=== PATIENT | male | born 1945 ===

== ENCOUNTER → 2018-08-12 | Outpatient (CLI) | payer OTHER ==
--- NOTE | 2018-08-12 13:14 | XR ---
EXAMINATION TYPE: XR knee complete bilateral DATE OF EXAM: 08/12/2018 CLINICAL HISTORY: Chronic bilateral knee pain TECHNIQUE: Three views of the bilateral knees were obtained. COMPARISON: None. FINDINGS: There is no acute fracture/dislocation evident in either knee. The tri-compartment joint spaces appear within normal limits other than very minimal medial compartment osteophytes bilaterally . The overlying soft tissue appears unremarkable. IMPRESSION: There is no acute fracture or dislocation in either knee. Mild medial compartment arthro flower bilaterally.
== END | disposition home or self-care (01) ==
LOC: RADXRMAIN 12:35
PROVIDERS: ATTEND Internal Medicine
DX: M17.0 Bilateral primary osteoarthritis of knee (principal)

== ENCOUNTER 2019-04-18 07:04 | Day surgery (SDC) | payer MEDICARE, OTHER ==
[2019-03-25 11:35] VITALS: BMI 33.2
[~2019-04-18 07:04] MED LIST: LACTATED RINGERS 1,000 ML IV SCH; LIDOCAINE 1% 20 ML VIAL (10MG/ML) FOR IV START INTRADERMA PRN
[2019-04-18 07:28] VITALS: RESP 16; TEMP 97.2
[2019-04-18] MEDS ORDERED: LIDOCAINE 1% INJ 10MG/ML (20 ML MDV) ONE (09:21)
[2019-04-18] MEDS ORDERED: PROPOFOL 10 MG/ML 20 ML VIAL IV ONE (09:21)
--- NOTE | 2019-04-18 09:54 | P.PCN ---
Date of Procedure: 04/18/19 Description of Procedure: Brief history: Patient is a pleasant scheduled for an elective upper endoscopy as well as colonoscopy as a part of evaluation of GERD and a change in bowel habits. Procedure performed: Esophagogastroduodenoscopy with biopsy Colonoscopy Estimated blood loss: Minimal. Preoperative diagnosis: Anesthesia: MAC Procedure: After informed consent was obtained from the patient was brought into the endoscopy unit and IV sedation was administered by anesthesia under continuous monitoring. Initially upper endoscopy was done. The Olympus GF 190 video endoscope was inserted into the mouth and esophagus intubated without any difficulty and was gradually advanced into the stomach and duodenum and carefully examined. The bulb and second part of the duodenum appeared normal, except for some mild scattered erythema suggestive of mild duodenitis with biopsies taken. The scope was then withdrawn into the stomach adequately insufflated with air and upon careful examination the antrum and body, cardia and fundus appeared normal, with biopsies of the antrum and body taken. The scope was then withdrawn into the esophagus. The GE junction was located at 35 cm to the incisors, with a 3 cm hiatal hernia noted. It appeared somewhat irregular concerning for short segment Cardoza's with biopsies taken. Rest of the esophagus appeared normal, except for mild grade a esophagitis. Patient tolerated the procedure well. At this time the patient continued to remain sedation. Initial digital rectal examination was normal. Olympus CF 190 video colonoscope was then inserted into the rectum and gradually advanced to the descending colon at which time the procedure was aborted due to a large amount of solid equal matter throughout the colon precluding visualization of the mucosa and increasing the risk for perforation due to impaired visualization. At this time the scope was withdrawn back into the rectum. Retroflexion was performed in the rectum and no lesions were noted. Patient tolerated the procedure well. Impression: 1. Mild duodenitis biopsied. GE junction and antrum and body biopsied. Moderate hiatal hernia. LA grade a esophagitis. 2. Failed/aborted colonoscopy due to poor prep with a large amount of solid stool throughout the visualized colon. Recommendations: Findings of this examination were discussed with the patient as well as his . Okay to resume diet. Resume medications. Continue current medical management. Follow-up in the gastroenterology clinic as previously scheduled. Await pathology from biopsies. Patient will need repeat colonoscopy in 3-6 months with 2 day prep.
[2019-04-18 10:24] VITALS: BP 115/79; PULSE 66
== END 2019-04-18 11:22 | disposition home or self-care (01) ==
LOC: ORWHC2ENDO 07:04
PROVIDERS: ATTEND Internal Medicine
DX: K44.9 Diaphragmatic hernia without obstruction or gangrene (principal); K21.0 Gastro-esophageal reflux disease with esophagitis; K29.50 Unspecified chronic gastritis without bleeding; K22.8 Other specified diseases of esophagus; R19.4 Change in bowel habit; Z98.49 Cataract extraction status, unspecified eye; Z87.11 Personal history of peptic ulcer disease; Z87.891 Personal history of nicotine dependence
CPT/HCPCS: 88305; 43239; 45330; J2001; J2704

== ENCOUNTER 2019-05-30 13:54 | Emergency (ER) | payer MEDICARE, OTHER ==
[2019-05-30 14:46] VITALS: BP 133/85; PULSE 89; RESP 18; TEMP 97.5
--- NOTE | 2019-05-30 15:37 | ED ---
General Adult HPI - General Chief complaint: Eye Problems Stated complaint: Eye Pain Time Seen by Provider: 05/30/19 15:06 Source: patient, RN notes reviewed Mode of arrival: ambulatory Limitations: language barrier - History of Present Illness Initial comments: 73-year-old male presents to the emergency department for a chief complaint of bilateral eye pain. Patient states he has bilateral eye irritation for at least 5 years. States he had cataract surgery about 2-3 months ago. States this did not seem to help with his eyes. States that he has a history of high pressure in his eyes. He usually sees Dr. Gallagher for this. States his is here for similar complaints. States that they thought they could see an health care marketing specialist through the emergency department.Patient has no other complaints at this time including shortness of breath, chest pain, abdominal pain, nausea or vomiting, headache, or visual changes. - Related Data Home Medications Medication Instructions Recorded Confirmed Miralax(Dose Unknown) 1 applicate PO DAILY 03/25/19 04/15/19 Vitamin D(Dose Unknown) 1 tab PO DAILY 03/25/19 04/15/19 Zinc(Dose Unknown) 1 tab PO DAILY 03/25/19 04/15/19 Allergies Allergy/AdvReac Type Severity Reaction Status Date / Time No Known Allergies Allergy Verified 04/18/19 07:27 Review of Systems ROS Statement: Those systems with pertinent positive or pertinent negative responses have been documented in the HPI. ROS Other: All systems not noted in ROS Statement are negative. 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"-told on previous EKG his diaghragm "was not healthy", constipation, "when I eat greasy,fatty or fried food it hard to digest it", feels heavy feeling after eating, History of Any Multi-Drug Resistant Organisms: None Reported Past Surgical History: Hernia Repair, Prostate Surgery Additional Past Surgical History / Comment(s): rectal fistula surgery, keegan cataract surgery Past Anesthesia/Blood Transfusion Reactions: No Reported Reaction Past Psychological History: No Psychological Hx Reported Smoking Status: Former smoker Past Alcohol Use History: None Reported Past Drug Use History: None Reported - Past Family History Mother Family Medical History: Cancer General Exam Limitations: language barrier General appearance: alert, in no apparent distress Head exam: Present: atraumatic, normocephalic, normal inspection Eye exam: Present: normal appearance, PERRL, EOMI. Absent: scleral icterus, conjunctival injection, periorbital swelling Expanded Eyelids: Normal Inspection: Bilateral Pupils: Regular, Round: Bilateral Sclera/Conjunctival: Normal Inspection: Bilateral IOP (R) in mmH IOP (L) in mmH IOP measured with: Tonopen ENT exam: Present: normal exam, mucous membranes moist Neck exam: Present: normal inspection, full ROM. Absent: tenderness, meningismus, lymphadenopathy Respiratory exam: Present: normal lung sounds bilaterally. Absent: respiratory distress, wheezes, rales, rhonchi, stridor Cardiovascular Exam: Present: regular rate, normal rhythm, normal heart sounds. Absent: systolic murmur, diastolic murmur, rubs, gallop, clicks Course Vital Signs 05/30/19 14:43 Temperature 97.5 F L Pulse Rate 89 Respiratory 18 Rate Blood Pressure 133/85 O2 Sat by Pulse 96 Oximetry Medical Decision Making - Medical Decision Making patient presents for chronic eye complains for at least 5 years. Had a recent cataract surgery a few months ago that did not seem to help with his watering and itching eyes. States she also has pain surrounding his eyes. Denies pain with movement of the eyes. Denies any worsening symptoms in recent time. Patient thought he could see an health care marketing specialist here to the emergency department. we did check intraocular pressures which were normal bilaterally. I did attempt to do a visual acuity but was unable to do so given patient's language barrier. I was however able to converse with patient's. I discussed the need to see Dr. Gallagher in the office. I discussed to call today and if there are any acute changes to return here to the emergency department. Disposition Clinical Impression: Eye irritation Disposition: HOME SELF-CARE Condition: Good Instructions (If sedation given, give patient instructions): Eye Pain (ED) Additional Instructions: please follow-up with Dr. Gallagher by calling for an appointment. Please return to the emergency department if you have any worsening symptoms or visual changes. Is patient prescribed a controlled substance at d/c from ED?: No Referrals: Wilma Escobedo MD [Primary Care Provider] - 1-2 days Adri Gallagher MD [STAFF PHYSICIAN] - 1-2 days Time of Disposition: 15:37
== END 2019-05-30 15:59 | disposition home or self-care (01) ==
LOC: EC 13:54
DX: H57.89 Other specified disorders of eye and adnexa (principal); H57.13 Ocular pain, bilateral; Z98.890 Other specified postprocedural states; Z87.891 Personal history of nicotine dependence
CPT/HCPCS: 99283

== ENCOUNTER 2019-07-11 10:03 | Emergency (ER) | payer MEDICARE, OTHER ==
[2019-07-11 10:19] VITALS: RESP 18
[2019-07-11] MEDS ORDERED: KETOROLAC 60 MG/2 ML VIAL IM STA (10:39)
[2019-07-11] MEDS ORDERED: DIAZEPAM 5 MG/ML 2 ML INJ IM ONE (10:39)
--- NOTE | 2019-07-11 10:45 | ED ---
General Adult HPI - General Chief complaint: Back Pain/Injury Stated complaint: back pain Time Seen by Provider: 07/11/19 10:10 Source: patient, conference interpreter, RN notes reviewed, old records reviewed Mode of arrival: wheelchair Limitations: no limitations - History of Present Illness Initial comments: This is a 73-year-old male who presents emergency department with past medical history significant for previous asked surgery last time he had it was 3 or 4 years ago in [place]. Patient's son was on the phone also give any history because his Moldovan was better. Father states that about 3 days ago he was lifting a couch and hurt his mid thoracic spine area and since that time he's had pain in that area. Patient states it's worse today than it has been patient denies any numbness weakness. Patient denies any pain radiating to legs or arms. Patient denies any direct hit or injury to the area. Patient denies any difficulty breathing or shortness of breath per patient denies any fevers. Patient states bending or twisting definitely makes the pain worse. - Related Data Home Medications Medication Instructions Recorded Confirmed Lubiprostone [Amitiza] 24 mcg PO BID 07/11/19 07/11/19 Polyethylene Glycol 3350 [Miralax] 17 gm PO DAILY 07/11/19 07/11/19 Previous Rx's Medication Instructions Recorded Cyclobenzaprine [Flexeril] 10 mg PO TID #20 tab 07/11/19 Ibuprofen [Motrin] 600 mg PO Q6HR PRN #20 tab 07/11/19 Allergies Allergy/AdvReac Type Severity Reaction Status Date / Time No Known Allergies Allergy Verified 07/11/19 11:23 Review of Systems ROS Statement: Those systems with pertinent positive or pertinent negative responses have been documented in the HPI. ROS Other: All systems not noted in ROS Statement are negative. 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"-told on previous EKG his diaghragm "was not healthy", constipation, "when I eat greasy,fatty or fried food it hard to digest it", feels heavy feeling after eating, History of Any Multi-Drug Resistant Organisms: None Reported Past Surgical History: Hernia Repair, Prostate Surgery Additional Past Surgical History / Comment(s): rectal fistula surgery, keegan cataract surgery Past Anesthesia/Blood Transfusion Reactions: No Reported Reaction Past Psychological History: No Psychological Hx Reported Smoking Status: Former smoker Past Alcohol Use History: None Reported Past Drug Use History: None Reported - Past Family History Mother Family Medical History: Cancer General Exam - General Exam Comments Initial Comments: GENERAL: Patient is well-developed and well-nourished. Patient is nontoxic and well- hydrated and is in mild distress. ENT: Neck is soft and supple. No significant lymphadenopathy is noted. Oropharynx is clear. Moist mucous membranes. Neck has full range of motion without eliciting any pain. EYES: The sclera were anicteric and conjunctiva were pink and moist. Extraocular movements were intact and pupils were equal round and reactive to light. Eyelids were unremarkable. PULMONARY: Unlabored respirations. Good breath sounds bilaterally. No audible rales rhonchi or wheezing was noted. CARDIOVASCULAR: There is a regular rate and rhythm without any murmurs gallops or rubs. ABDOMEN: Soft and nontender with normal bowel sounds. SKIN: Skin is clear with no lesions or rashes and otherwise unremarkable. NEUROLOGIC: Patient is alert and oriented x3. Cranial nerves II through XII are grossly intact. Motor and sensory are also intact. Normal speech, volume and content. Symmetrical smile. MUSCULOSKELETAL: Normal extremities with adequate strength and full range of motion. Patient has tenderness to the thoracic spine on the paraspinous muscle area both on the right the left is at about the level of T9 LYMPHATICS: No significant lymphadenopathy is noted PSYCHIATRIC: Normal psychiatric evaluation. Limitations: no limitations Course Vital Signs 07/11/19 10:16 Temperature 97.8 F Pulse Rate 73 Respiratory 18 Rate Blood Pressure 131/83 O2 Sat by Pulse 96 Oximetry Medical Decision Making - Medical Decision Making Thoracic back x-ray shows a T12 compression fracture. CT of the same area shows compression fracture with no retropulsion of any bony fragments. Disposition Clinical Impression: Compression fracture of T11 vertebra Disposition: HOME SELF-CARE Condition: Good Instructions (If sedation given, give patient instructions): Vertebral Compression Fracture (ED) Prescriptions: Cyclobenzaprine [Flexeril] 10 mg PO TID #20 tab Ibuprofen [Motrin] 600 mg PO Q6HR PRN #20 tab PRN Reason: For pain Is patient prescribed a controlled substance at d/c from ED?: No Referrals: Wilma Escobedo MD [Primary Care Provider] - 1-2 days Time of Disposition: 12:17
--- NOTE | 2019-07-11 11:17 | XR ---
EXAMINATION TYPE: XR thoracic spine complete DATE OF EXAM: 07/11/2019 CLINICAL HISTORY: Back pain after lifting a heavy object 9 days ago TECHNIQUE: Frontal, lateral, and swimmer's view of thoracic spine are obtained. COMPARISON: None. FINDINGS: In addition to the kyphoplasty change at approximately L1 and L2 there is a compression def ormity at approximately T12 with vertebral body height loss of approximately 30%. Remainder of the th oracic vertebral body heights appear maintained. Alignment appears maintained. Mild degenerative garcia ge is seen with small anterior osteophytes and intervertebral disc space narrowing. IMPRESSION: 1. Age-indeterminate compression deformity at approximately T11 of 30%. No priors available for katya rison. Correlate for point tenderness. 2. Old compression deformities with vertebroplasty change at approximately L1 and L2.
--- NOTE | 2019-07-11 12:15 | CT ---
EXAMINATION TYPE: CT thoracic spine wo con DATE OF EXAM: 07/11/2019 COMPARISON: Plain film of 07/11/2019 HISTORY: Mid back pain without injury CT DLP: 995.5 mGycm Automated exposure control for dose reduction was used. CT of the thoracic spine was performed with b one and soft tissue window settings reviewed in the axial coronal and sagittal planes. FINDINGS: Visualized osseous structures demonstrate osteopenia. There is mild superior endplate compression fra cture involving the T11 vertebral segment estimated at 20%. There is surrounding hematoma indicating acute process. There is vague lucency involving the posterior aspect superior endplate of T12 without significant volume loss which may reflect additional fracture. There is no evidence for bony retropu lsion. No additional fractures identified. IMPRESSION: 1. Mild superior endplate compression fracture involving T11 as discussed above and possibly T12. No evidence of bony retropulsion or instability.
[2019-07-11 12:41] VITALS: BP 138/80; PULSE 78; TEMP 97
== END 2019-07-11 12:41 | disposition home or self-care (01) ==
LOC: EC 10:03
DX: S22.080A Wedge compression fracture of T11-T12 vertebra, initial encounter for closed fracture (principal); K59.00 Constipation, unspecified; Z87.891 Personal history of nicotine dependence; Z79.899 Other long term (current) drug therapy; X50.0XXA Overexertion from strenuous movement or load, initial encounter
CPT/HCPCS: 72072; 72128; 99284; 96372 ×2; J3360; J1885

== ENCOUNTER 2019-12-20 09:51 | Day surgery (SDC) | payer MEDICARE, OTHER ==
[2019-12-19 09:36] VITALS: BMI 25.1
[2019-12-20 10:18] VITALS: RESP 16; TEMP 98.1
[2019-12-20] MEDS ORDERED: LIDOCAINE 1% (10MG/ML) FOR IV START INTRADERMA ONE (10:20)
[2019-12-20] MEDS: LACTATED RINGERS 1,000 ML IV SCH ×2 (10:20→11:26)
[2019-12-20] MEDS ORDERED: PROPOFOL 10 MG/ML 20 ML VIAL IV ONE (11:28)
--- NOTE | 2019-12-20 12:06 | P.PCN ---
Date of Procedure: 12/20/19 Description of Procedure: BRIEF HISTORY: Patient is a 74-year-old male with chronic constipation presenting for outpatient colonoscopy for altered bowel function and change of bowel.. Last colonoscopy incomplete due to poor prep. PROCEDURE PERFORMED: Colonoscopy. PREOPERATIVE DIAGNOSIS: Change in bowel habits, altered bowel function. ESTIMATED BLOOD LOSS: Minimal. IV sedation per Anesthesia. PROCEDURE: After informed consent was obtained, the patient, was brought into the endoscopy unit. IV sedation was administered by Anesthesia under continuous monitoring. Digital rectal examination was normal. Initially the Olympus CF-190 flexible video colonoscope was then inserted in the rectum, gradually advanced into the cecum without any difficulty. Careful examination was performed as the scope was gradually being withdrawn. Ileocecal valve was visualized and appeared normal. Prep was poor with a large amount of semi-solid stool noted throughout the colon. Mucosa of the cecum, ascending colon, transverse colon, descending colon, sigmoid colon, and rectum which was visualized and appeared normal, however completely visualized cessation of the mucosa severely inhibited by poor prep. Retroflexion was performed in the rectum and no lesions were seen. The patient tolerated the procedure well. IMPRESSION: Poor prep with large amounts of semisolid stool throughout the colon. Mucosa of the colon which was visualized and appeared. RECOMMENDATIONS: Findings of this examination were discussed with the patient via an seismic interpreter. Continue bowel regimen with patient recently started on an alternative laxative. GI clinic as scheduled. Patient should have repeat colonoscopy in one year with 2 day prep.
[2019-12-20 12:26] VITALS: BP 125/74; PULSE 60
== END 2019-12-20 13:02 | disposition home or self-care (01) ==
LOC: ORWHC2ENDO 09:51
PROVIDERS: ATTEND Internal Medicine
DX: K59.09 Other constipation (principal); K21.9 Gastro-esophageal reflux disease without esophagitis; Z79.899 Other long term (current) drug therapy
CPT/HCPCS: 45378; J2704

== ENCOUNTER → 2020-01-23 | Outpatient (CLI) | payer MEDICARE, OTHER ==
--- NOTE | 2020-01-23 15:15 | MR ---
EXAMINATION TYPE: MR lumbar spine wo con DATE OF EXAM: 01/23/2020 3:01 PM COMPARISON: NONE HISTORY: Mid-Low back pain, radiculopathy, T11-12 wedge compression fx Multiplanar, MultiSpin echo imaging of the lumbar spine was performed. L1-L2: Severe compression fracture involving the L1 vertebral segment with methylmethacrylate noted. No evidence for bony retropulsion. Loss of height is estimated at greater than 80%. Moderate disc lizz iccation with posterocentral disc bulge. No evidence for central stenosis. L2-L3: L2 compression fracture with loss of height estimated at greater than 75%. Methylmethacrylate noted within the vertebral body. Moderate degenerative disc disease with left paracentral disc hernia tion. Moderate central stenosis identified. L3-L4: Compression fracture of L4 with methylmethacrylate injection. Loss of height estimated at grea ter than 70%. Mild disc desiccation with posterior disc bulge. L4-L5: L5 is of normal height without compression fracture. Moderate degenerative disc disease canal superintendent ior disc bulge. No herniation or central stenosis. Facet joint arthropathy with mild bilateral forami nal encroachment. L5-S1: Moderate degenerative disc disease posterior disc bulge. No herniation or central stenosis. Fa cet joint arthropathy with mild bilateral foraminal encroachment. Abdominal aortic aneurysm estimated at 4 cm AP dimension. No paraspinal masses are identified. Conus medullaris has a normal appearance. IMPRESSION: 1. Multilevel chronic compression fractures with methylmethacrylate injection. 2. Moderate central stenosis at L2-3.
== END | disposition home or self-care (01) ==
LOC: RADMRIMAIN 13:57
PROVIDERS: ATTEND Orthopaedic Surgery Orthopaedic Surgery of the Spine
DX: S32.020D Wedge compression fracture of second lumbar vertebra, subsequent encounter for fracture with routine healing (principal); S32.030D Wedge compression fracture of third lumbar vertebra, subsequent encounter for fracture with routine healing; S32.040D Wedge compression fracture of fourth lumbar vertebra, subsequent encounter for fracture with routine healing; M48.061 Spinal stenosis, lumbar region without neurogenic claudication; Z98.890 Other specified postprocedural states
CPT/HCPCS: 72148

== ENCOUNTER → 2020-02-01 | Outpatient (CLI) | payer MEDICARE, OTHER ==
[~2020-02-01] MED LIST changes: +DENOSUMAB 60 MG/ML 1 ML SYRINGE SQ NR; -LACTATED RINGERS 1,000 ML IV SCH; -LIDOCAINE 1% 20 ML VIAL (10MG/ML) FOR IV START INTRADERMA PRN
[2020-02-01 14:07] VITALS: BP 126/85; PULSE 69; RESP 16; TEMP 98.1
== END | disposition home or self-care (01) ==
LOC: PROCWHC3 13:14
PROVIDERS: ATTEND Internal Medicine
DX: M81.0 Age-related osteoporosis without current pathological fracture (principal)
CPT/HCPCS: 96372; J0897

== ENCOUNTER → 2020-04-14 | Outpatient (CLI) | payer MEDICARE, OTHER ==
--- NOTE | 2020-04-14 17:40 | MR ---
EXAMINATION TYPE: MR lumbar spine wo/w con DATE OF EXAM: 04/14/2020 COMPARISON: 01/23/2020 HISTORY: Low Back Pain CONTRAST: Standard multiplanar, multisequence MRI departmental protocol utilizing 7.5 mL intravenous Gadavist g adolinium contrast. The lumbar vertebra show multiple compression fractures up to 50% loss of height. This is seen at L5 L4 L2 L1 and T11. There is anterior wedging. There is vertebroplasty loss of signal at L1 and L2 and L4. There is posterior disc herniation at L2-3 encroaching on the spinal canal. There is a mild rela tive spinal stenosis at this level. There is no lumbar paraspinal mass. The sacroiliac joints appear intact. IMPRESSION: Numerous osteoporotic compression fractures not significantly different than old exam. Mild relative spinal stenosis at L2-3 due to posterior disc herniation unchanged. No acute bony abnormality.
== END | disposition home or self-care (01) ==
LOC: RADMRIMAIN 14:25
PROVIDERS: ATTEND Internal Medicine
DX: M48.061 Spinal stenosis, lumbar region without neurogenic claudication (principal); M51.26 Other intervertebral disc displacement, lumbar region; M80.88XA Other osteoporosis with current pathological fracture, vertebra(e), initial encounter for fracture
CPT/HCPCS: 72158

== ENCOUNTER → 2020-08-23 | Outpatient (CLI) | payer MEDICARE, OTHER ==
[2020-08-23 08:16] VITALS: BP 153/90; PULSE 84; RESP 16; TEMP 98.1
== END | disposition home or self-care (01) ==
LOC: PROCWHC3 08:06
PROVIDERS: ATTEND Internal Medicine
DX: M81.0 Age-related osteoporosis without current pathological fracture (principal)
CPT/HCPCS: 96372; J0897

== ENCOUNTER → 2021-02-28 | Outpatient (CLI) | payer MEDICARE, OTHER ==
[2021-02-28 08:33] VITALS: BP 143/89; PULSE 75; RESP 16; TEMP 98.6
== END ==
LOC: PROCWHC3 08:21
PROVIDERS: ATTEND Internal Medicine
DX: M81.0 Age-related osteoporosis without current pathological fracture (principal); Z87.891 Personal history of nicotine dependence
CPT/HCPCS: 96372; J0897

== ENCOUNTER → 2021-08-30 | Outpatient (CLI) | payer MEDICARE, OTHER ==
[2021-08-30 08:57] VITALS: BP 144/95; PULSE 114; RESP 16; TEMP 98.7
== END ==
LOC: PROCWHC3 08:43
PROVIDERS: ATTEND Internal Medicine
DX: M81.0 Age-related osteoporosis without current pathological fracture (principal); Z87.891 Personal history of nicotine dependence
CPT/HCPCS: 96372; J0897

== ENCOUNTER → 2022-03-10 | Outpatient (CLI) | payer MEDICARE, OTHER ==
[2022-03-10 14:54] VITALS: BP 142/87; PULSE 72; RESP 18; TEMP 98.2
--- NOTE | 2022-03-10 15:42 | P.PAINPG ---
PQRS Measure Charge Sheet Comment: HISTORY OF PRESENT ILLNESS: 76 yr old male as a referral from Dr. Miller presents today w severe and chronic secondary to for evaluation. He fell in 1994 which started his LBP. Pt states his pain level is currently at /10 in intensity, intermittent, 5/10 in intensity, localized in the BL lower lumbar spine, in character w radiation towards BLEs. Pain has unknown provocative factors. Pain is palliated w PT (15 sessions) integrated w massage in 2020, heat & ice at PT, laying supine, repositioning and rest. PMH: GERD PSH: Hernia Repair, Prostate Surgery, Rectal Fistula Repair, BL Cataract Resection SH: Former tobacco user, No ETOH abuse, No illicit drug use. FH: Mo- CA. All: NKDA Meds: See list REVIEW OF ORGAN SYSTEMS: CONSTITUTIONAL: No fevers or chills. No recent weight loss. NEUROLOGICAL: + numbness and tingling along the distal extremities. No seizure disorders or headaches. MUSCULOSKELETAL: + pain PSYCHIATRIC: Denies current depression or suicidal thoughts. Physical Examinations : Constitutional : Cooperative , not in acute distress . Neurologic : Cranial nerve II to XII intact. No focal neurological deficits. Psychiatric : alert & oriented x 3. Matching mood & appropriate affect. Judgment & insight intact. Musculoskeletal : Cervical Spine Motor strength in the deltoid and biceps: Normal right side. Normal Left side Motor strength biceps and the wrist extensors: Normal right side . Normal left side Motor strength in the triceps muscle: Normal right side. Normal left side Deep tendon reflexes: Normal at the biceps. Normal at Brachioradialis. Normal at triceps Vertebral body tenderness to deep palpation over Cervical facet loading test: positive bilaterally Spurling test: positive bilaterally Neck distraction test: positive bilaterally Avelino sign: positive bilaterally Lumbar spine Motor strength lower extremities ,thigh and legs 5/5 Right side , 5/5 Left side Deep tendon reflexes : Normal Knee Jerk. Normal Ankle Jerk Vertebral body tenderness over L3 Lumbar facet Loading Test: positive Right / positive Left Range of motion of the lumbar spine Flexion 30 degrees, extension 10 degrees Straight Leg Raise test: Left/ Right positive at degree Chris test: positive right / positive left. Severe tenderness over the Sacroiliac joint on the Right / Left sides Gaenslen test: positive bilaterally Seated flexion test: positive bilaterally. Sacral spine : Severe tenderness over the Sacroiliac joint: right side / left side Range of motion: Flexion of the lumbar spine <60 degrees Range of motion: Extension of the lumbar spine <20 degrees Gaenslen's Test positive Alberto's Test positive Chris test: positive right side / left side Thigh Thrust Test Sacral Thrust Test Imaging: MRI without contrast of the lumbar spine from 01/23/20 reviewed Assessment/ Plan : Lumbar DDD, Lumbar spondylosis Recommendation of BL TFESI L2-L3. May need a series, up to 3 within a 6 mo period, for optimal pain relief. Risks, benefits of procedure discussed and patient verbalized understanding. Denies aspirin or anti- coagulant use or medical history of diabetes. Protocol for discontinuation/ continuation of medications juan carlos procedure discussed. Welding Specialist via zoom available to discuss and pt acknowledged understanding. All questions answered. I have spent greater than 30 minutes on patient care today. Dr Montiel was available by phone for the evaluation of this patient. The time was used to review the medical records including relevant urine studies and Prescription history (MAPs), review of the available imaging, evaluation and examination of the patient, coordination of care with the medical staff and if applicable referring physicians, as well as creation of the medical record PQRS Narrative: Smoking Status Former smoker Home Medications: Ambulatory Orders Lubiprostone [Amitiza] 24 mcg PO BID 07/11/19 Docusate Sodium [Dok] 100 mg PO DAILY 12/20/19 Cyclobenzaprine [Flexeril] 1 tab PO DAILY 02/28/21 Linaclotide [Linzess] 1 tab PO DAILY 02/28/21 Pantoprazole [Protonix] 1 tab PO DAILY 02/28/21 Controlled Substance Measures - Controlled Substance Measures Is patient prescribed a controlled substance at discharge?: No
== END | disposition home or self-care (01) ==
LOC: PNWHC3 13:09
PROVIDERS: ATTEND Specialist
DX: K21.9 Gastro-esophageal reflux disease without esophagitis (principal); M51.26 Other intervertebral disc displacement, lumbar region; M54.16 Radiculopathy, lumbar region; Z87.891 Personal history of nicotine dependence
CPT/HCPCS: 99211

== ENCOUNTER → 2022-03-26 | Outpatient (CLI) | payer MEDICARE, OTHER ==
[2022-03-26 17:59] LABS: HCT 44.7 % (39.6-50.0); HGB 14.3 g/dL (13.0-17.0); MCH 28.3 pg (27.0-32.0); MCV 88.5 fL (80.0-97.0); Mean Platelet Volume 11.9 fL (9.5-12.2); NRBC Per 100 WBC 0 /100 WBCS (0.0-0.0); Platelet Count 180 X 10*3/uL (140-440); RBC 5.05 X 10*6/uL (4.40-5.60); RDW 14.2 % (11.5-14.5); WBC 5.85 X 10*3/uL (4.50-10.00)
[2022-03-26 19:26] LABS: African American GFR (CKD) 100.2 (60.0-200.0); Anion Gap 10.9 mmol/L (10.00-18.00); Carbon Dioxide 21.5 mmol/L (20.0-27.5); Non-African American GFR(CKD) 86.5 (60.0-200.0); Potassium 4.5 mmol/L (3.5-5.5)
== END | disposition home or self-care (01) ==
LOC: LABPAT 10:47
PROVIDERS: ATTEND Internal Medicine Interventional Cardiology
DX: Z01.812 Encounter for preprocedural laboratory examination (principal); R94.39 Abnormal result of other cardiovascular function study
CPT/HCPCS: 80051; 82565; 85027

== ENCOUNTER 2022-03-27 10:33 | Day surgery (SDC) | payer MEDICARE, OTHER ==
[2022-03-26 09:58] VITALS: BMI 25.8
[~2022-03-27 10:33] MED LIST changes: +ALPRAZolam 0.25 MG TAB PO PRN; +ALPRAZolam 0.5 MG TAB PO PRN; +ASPIRIN 325 MG TAB PO STA; +ATORVASTATIN 80 MG TAB PO STA; -DENOSUMAB 60 MG/ML 1 ML SYRINGE SQ NR; +HEPARIN SODIUM,PORCINE 10,000 UNIT in SODIUM CHLORIDE 0.9% 1,000 ML IRRIGATION PRN; +HEPARIN SODIUM,PORCINE 2,500 UNIT in SODIUM CHLORIDE 0.9% 250 ML IRRIGATION PRN; +NITROGLYCERIN SL TABS 0.4 MG TAB SUBLINGUAL PRN; +SODIUM CHLORIDE 0.9% 1,000 ML in EMPTY BAG 1 BAG IV SCH
[2022-03-27 11:05] LABS: Basophils # (A) 0.1 k/uL (0-0.2); Basophils % (A) 1 %; Eosinophils # (A) 0.3 k/uL (0-0.7); Eosinophils % (A) 4 %; HCT 47.2 % (39.0-53.0); HGB 15.5 gm/dL (13.0-17.5); Hypochromasia Slight; Lymphocytes # (A) 1.9 k/uL (1.0-4.8); Lymphocytes % (A) 31 %; MCH 29.2 pg (25.0-35.0); MCHC 32.8 g/dL (31.0-37.0); MCV 88.9 fL (80.0-100.0); Mean Platelet Volume 9.4; Monocytes # (A) 0.3 k/uL (0-1.0); Monocytes % (A) 6 %; Neutrophils # (A) 3.2 k/uL (1.3-7.7); Neutrophils % (A) 55 %; Platelet Count 163 k/uL (150-450); RBC 5.31 m/uL (4.30-5.90); WBC 5.9 k/uL (3.8-10.6)
[2022-03-27 11:18] LABS: African American GFR (CKD) >90 (>60 ml/min/1.73 sqM); Anion Gap 9 mmol/L; Blood Urea Nitrogen 14 mg/dL (9-20); Calcium 8.6 mg/dL (8.4-10.2); Carbon Dioxide 27 mmol/L (22-30); Chloride 103 mmol/L (98-107); Glucose 99 mg/dL (74-99); Non-African American GFR(CKD) 89 (>60 ml/min/1.73 sqM); Potassium 3.9 mmol/L (3.5-5.1); Sodium 139 mmol/L (137-145)
[2022-03-27] MEDS ORDERED: fentaNYL (PF) 50 MCG/ML 2 ML AMP IV ONE (12:25)
[2022-03-27] MEDS ORDERED: LIDOCAINE 1% INJ 10MG/ML (30 ML VIAL-PF) SQ ONE ×2 (12:26)
[2022-03-27] MEDS ORDERED: MIDAZOLAM 2 MG/2 ML VIAL IV ONE (12:29)
[2022-03-27] MEDS: HEPARIN SODIUM 1,000 UN/ML (10ML VL) IV ONE ×2 (12:57→13:14)
[2022-03-27] MEDS ORDERED: CLOPIDOGREL 75 MG TAB PO ONE (13:05)
[2022-03-27] MEDS ORDERED: IOPAMIDOL-370 125ML BTL INJ ONE (13:15)
[2022-03-27] MEDS ORDERED: NITROGLYCERIN SL TABS 0.4 MG TAB SUBLINGUAL PRN (13:51)
[2022-03-27] MEDS ORDERED: MAG HYDROX/AL HYDROX/SIMETH 30 ML CUP PO PRN (13:51)
[2022-03-27] MEDS ORDERED: ATROPINE SULFATE 0.1 MG/ML 10ML SYRINGE IV PRN (13:51)
[2022-03-27] MEDS ORDERED: ZOLPIDEM 5 MG TAB PO PRN (13:51)
[2022-03-27] MEDS ORDERED: RX INFO: IV CONTRAST WAS GIVEN 1 EACH MISC MISCELLANE PRN (13:51)
[2022-03-27] MEDS ORDERED: SODIUM CHLORIDE 0.9% 1,000 ML in EMPTY BAG 1 BAG IV SCH (14:00)
[2022-03-27] MEDS ORDERED: IOPAMIDOL-300 50ML BTL INJ ONE (14:02)
--- NOTE | 2022-03-27 18:54 | P.CARDCATH ---
Date of Procedure: 03/27/22 Description of Procedure: Cardiac Catheterization: The patient is a 76-year-old male with no prior documented history of significant CAD who has been complaining of chest discomfort. He underwent an MPI showed evidence of stress induced ischemia. Recommendations were made regarding cardiac catheterization, the risks and the complications were discussed with the patient who is in full understanding and agreement. Procedure Description: Patient was brought to radiographer cardiac catheterization in fasting semi-sedated state after receiving Fentanyl and Benadryl achieiving moderate conscious sedated state. Attempt to cannulate the right radial artery were unsuccessful because of spasm. Using Xylocaine Anesthesia and Seldinger technique, a 6-Angolan sheath was introduced in the left femoral artery . Subsequently, selective coronary angiography was performed using a 6-Angolan 4 bend Macy catheter. Multiple views of the coronary artery including hemiaxial views were obtained. The 6-Angolan pigtail catheter was used to cross the aortic valve and LVEDP was calculated. After removing the catheters 6-Angolan Macy 4 guiding catheter was introduced in the system and the right coronary ostium was cannulated. Subsequently a 0.014 BMW J-wire was advanced, positioned distally. A 3.0 x 12 mm NC Treck was advanced and inflation up to 8 stefania for done approximately. Subsequently a 3.5 x 38 mm Xience ramos point was deployed proximally at 16 stefania. After removing the balloon an IVUS [place] eye catheter was introduced and images were obtained. Following that a 5.0 x 15 mm NC Treck was advanced and multiple inflations proximally at maximum of 12 stefania were done. After removing the balloon a 5.0 x 18 mm Xience ramos point stent was advanced to the distal segment, deployed at 14 stefania. After withdrawing the balloon images were obtained and repeated that showed successful stenting. Following that, catheter and sheath were removed. Hemostasis was obtained with deployment of Angio-Seal. There was no immediate complication. Patient was returned to room in stable condition. Of note, the patient received a total of 6000 units of intravenous heparin as well as oral loading dose of clopidogrel. The patient had chest discomfort that resolved at the end of the procedure. His ACT was monitored. Findings: Fluoroscopy: Significant calcification was noted. Left main: This is a short sized vessel, bifurcating into LAD and left circumflex, left main has no high-grade stenosis LAD: This is a large-size vessel, reaching to the apex with a wraparound the apex segment, giving rise to 3 diagonal branch, the LAD has 20-30% plaque in the proximal segment and another plaque in the midsegment of 20% with no high-grade stenosis Left circumflex: This is a nondominant vessel moderate caliber giving rise to 2 obtuse marginal branch, the left circumflex has mild intimal disease with no high-grade stenosis RCA: This is a large dominant vessel, giving rise to PDA distally, heavily calcified. The proximal RCA and the mid RCA are diffusely diseased with areas of stenosis of 95 % in the proximal segment, there is another 80% plaque in the distal RCA. The vessel is large in caliber Left Ventriculogram: Not performed Hemodynamics: There was no gradient across the aortic valve, LVEDP was 16-20 mmHg Conclusion: 1. Calcified coronary arteries 2. Mild disease in the LAD and left circumflex 3. Critical stenosis in the proximal, mid and distal RCA 4. Successful stenting of the proximal RCA and mid with reduction of the stenosis from 95 in the long segment to less than 5% 5. Successful stenting of the distal RCA with reduction of the stenosis from 80% to 0%. 6. Intravascular ultrasound imaging Recommendations: The patient will continue on dual antiplatelet treatment with aspirin and Plavix for 6 months. Aggressive coronary risks modification will be continued. The findings and the recommendations were discussed with the patient and the family and they were in full understanding and agreement. Duration of sedation is 76 minutes.
[2022-03-27] MEDS ORDERED: ATORVASTATIN 80 MG TAB PO SCH (21:00)
[2022-03-27] MEDS ORDERED: DONEPEZIL 5 MG TAB PO SCH (21:00)
[2022-03-28 01:18] LABS: Chol/HDL Ratio 4.87 Ratio; LDL Cholesterol,Calculated 178.4 mg/dL (0.0-131.0)
[2022-03-28 03:57] VITALS: RESP 18
[2022-03-28] MEDS: METOPROLOL TARTRATE 25 MG TAB PO SCH ×2 (04:01→08:38)
[2022-03-28 06:51] LABS: African American GFR (CKD) >90 (>60 ml/min/1.73 sqM); Anion Gap 7 mmol/L; Blood Urea Nitrogen 15 mg/dL (9-20); Carbon Dioxide 24 mmol/L (22-30); Chloride 107 mmol/L (98-107); Glucose 88 mg/dL (74-99); Non-African American GFR(CKD) 85 (>60 ml/min/1.73 sqM); Potassium 4.1 mmol/L (3.5-5.1); Sodium 138 mmol/L (137-145)
[2022-03-28] MEDS ORDERED: PANTOPRAZOLE 40 MG TABLET PO SCH (07:30)
[2022-03-28 08:36] VITALS: BP 113/71; PULSE 64; TEMP 98.3
--- NOTE | 2022-03-28 08:36 | P.PN ---
Subjective Progress Note Date: 03/28/22 PROGRESS NOTE The patient is a 76-year-old male who has been complaining of chest discomfort and had an abnormal MPI, underwent cardiac catheterization that showed evidence of inducible ischemia. Underwent cardiac catheterization and had significant obstructive disease in the RCA and received 2 stents. He is doing well this morning, he has episodes of reflux but no chest discomfort. He denies any diz ziness or palpitations. He is in sinus mechanism. Medications: Aspirin once a day, Plavix 75 mg daily him on Lipitor 80 mg daily, Lopressor 25 mg twice a day, Aricept once a day, Protonix PHYSICAL EXAMINATION: Blood pressure 104/60 heart rate 60 LUNGS: [Clear to auscultation] HEART: [Regular rate and rhythm, S1, S2. No S3. systolic ejection murmur] ABDOMEN: [Soft, nontender, no organomegaly] EXTREMETIES: [No edema, right groin no hematoma] LAB: Potassium 4.1, BUN 15 creatinine 0.85. EKG shows no acute changes IMPRESSION: 1. Status post stenting of the RCA 2. Hyperlipidemia 3. History of reflux 4. Prior history of dizziness PLAN: 1. Continue present therapy 2. Increase physical activity 3. Discharged home today 4. And follow-up in one week Objective - Vital Signs Vital signs: Vital Signs Temp 98.1 F 03/28/22 03:05 Pulse 70 03/28/22 03:05 Resp 18 03/28/22 03:05 BP 94/53 03/28/22 03:05 Pulse Ox 93 L 03/28/22 03:05 FiO2 Intake & Output 03/27/22 03/28/22 03/28/22 18:59 06:59 18:59 Intake Total 250 500 Output Total 750 Balance -500 500 Weight 84 kg 84 kg Intake: IV 250 Oral 500 Output: Urine 750 Other: Voiding Method Urinal # Voids 2 - Labs CBC & Chem 7: 03/27/22 11:01 03/28/22 05:53 Labs: Abnormal Lab Results - Last 24 Hours (Table) 03/27/22 03/28/22 Range/Units 11:01 05:53 Calcium 8.0 L (8.4-10.2) mg/dL Cholesterol 258.00 H (0.00-200.00) mg/dL LDL Cholesterol, Calc 178.4 H (0.0-131.0) mg/dL
[2022-03-28] MEDS ORDERED: ASPIRIN 81 MG PO SCH (09:00)
[2022-03-28] MEDS ORDERED: CLOPIDOGREL 75 MG TAB PO SCH (09:00)
[2022-03-28] MEDS ORDERED: NON FORMULARY DRUG (Linaclotide [Linzess] 72 MCG Capsule) PO SCH (09:00)
== END 2022-03-28 11:02 | disposition home or self-care (01) ==
LOC: CATHCVL 10:33 → 6NMEDSUR 14:09 → CATHCVL 03-28 11:02
PROVIDERS: ATTEND Internal Medicine Interventional Cardiology
DX: I25.10 Atherosclerotic heart disease of native coronary artery without angina pectoris (principal); R55 Syncope and collapse; E78.5 Hyperlipidemia, unspecified; K21.9 Gastro-esophageal reflux disease without esophagitis; Z79.82 Long term (current) use of aspirin; R94.39 Abnormal result of other cardiovascular function study; Z95.5 Presence of coronary angioplasty implant and graft
CPT/HCPCS: 92978; 93458; 80061; 80048 ×2; 85025; C9600; C1760; C1887; C1769 ×2; C1894 ×2; C1725 ×2; C1753; C1874 ×3; J2250; J2001; J3010; J1644; Q9967 ×2

== ENCOUNTER 2022-04-22 11:16 | Observation (INO) | payer MEDICARE, OTHER ==
[2022-04-22] MEDS ORDERED: ASPIRIN 81 MG PO STA (12:25)
[2022-04-22] MEDS ORDERED: NITROGLYCERIN OINT 1 INCH/GM PACKET TOPICAL STA (12:26)
--- NOTE | 2022-04-22 12:52 | XR ---
EXAMINATION TYPE: XR chest 2V DATE OF EXAM: 04/22/2022 12:47 PM COMPARISON: CT thoracic spine 07/11/2019. TECHNIQUE: XR chest 2V Frontal and lateral views of the chest. CLINICAL INDICATION:Male, 76 years old with history of dysrhythmia; FINDINGS: Lungs/Pleura: There is no evidence of pleural effusion, focal consolidation, or pneumothorax. Pulmonary vascularity: Unremarkable. Heart/mediastinum: Cardiomediastinal silhouette is prominent in size. Atherosclerotic calcifications are seen in the aorta. Musculoskeletal: Increased anterior wedge compression deformity of the T11 vertebral body with approx imately 50% height loss. Lumbar compression deformities with vertebral augmentation changes redemonst rated. IMPRESSION: 1. No acute cardiopulmonary disease/process. 2. Increased anterior wedge compression deformity of the T11 vertebral body from prior examination o n 07/11/2019.
[2022-04-22 13:12] LABS: Basophils # (A) 0.1 k/uL (0-0.2); Basophils % (A) 1 %; Eosinophils # (A) 0.3 k/uL (0-0.7); Eosinophils % (A) 5 %; Hypochromasia Slight; Lymphocytes # (A) 1.7 k/uL (1.0-4.8); Lymphocytes % (A) 29 %; MCH 29.6 pg (25.0-35.0); MCHC 33.3 g/dL (31.0-37.0); MCV 88.8 fL (80.0-100.0); Monocytes # (A) 0.4 k/uL (0-1.0); Monocytes % (A) 7 %; Neutrophils # (A) 3.2 k/uL (1.3-7.7); Neutrophils % (A) 56 %; Platelet Count 137 k/uL (150-450); RBC 5.07 m/uL (4.30-5.90); RDW 13.6 % (11.5-15.5); WBC 5.8 k/uL (3.8-10.6)
[2022-04-22 13:25] LABS: ALT 30 U/L (4-49); AST 33 U/L (17-59); African American GFR (CKD) >90 (>60 ml/min/1.73 sqM); Albumin 4.1 g/dL (3.5-5.0); Alkaline Phosphatase 154 U/L (38-126); Anion Gap 4 mmol/L; Blood Urea Nitrogen 18 mg/dL (9-20); Calcium 8.9 mg/dL (8.4-10.2); Carbon Dioxide 29 mmol/L (22-30); Chloride 105 mmol/L (98-107); Glucose 94 mg/dL (74-99); INR 0.9 (<1.2); Magnesium 2.1 mg/dL (1.6-2.3); Non-African American GFR(CKD) 86 (>60 ml/min/1.73 sqM); Partial Thromboplastin Time 24.7 sec (22.0-30.0); Potassium 4.6 mmol/L (3.5-5.1); Prothrombin Time 9.9 sec (9.0-12.0); Sodium 138 mmol/L (137-145); Total Bilirubin 0.7 mg/dL (0.2-1.3); Total Protein 6.6 g/dL (6.3-8.2)
--- NOTE | 2022-04-22 13:37 | ED ---
General Adult HPI - General Chief complaint: Arrhythmia/Palpitations Stated complaint: Palpitations Time Seen by Provider: 04/22/22 12:10 Source: patient, dynamics ax consultant, RN notes reviewed, old records reviewed Mode of arrival: ambulatory Limitations: no limitations - History of Present Illness Initial comments: This is a 76-year-old male who presents emergency Department there is a language barrier I did use an dynamics ax consultant. Patient stated that he had 2 stents placed in the past. Patient states been having intermittent chest pain in the last 10 days. Patient states this often associated with shortness of breath and pain on the left arm. Patient states the pain doesn't last that long and it doesn't seem to be associated with exertion. Patient denies any fever chills or cough. Patient denies any abdominal pain patient denies nausea vomiting or diarrhea. Patient states she does have a history of constipation. Patient denies headache patient denies numbness weakness. Patient denies lightheadedness or dizziness or any near syncopal episode. Patient denies any swelling to the legs or calf tenderness. - Related Data Home Medications Medication Instructions Recorded Confirmed Docusate Sodium [Dok] 100 mg PO DAILY 12/20/19 03/27/22 Linaclotide [Linzess] 1 tab PO DAILY 02/28/21 03/27/22 Pantoprazole [Protonix] 1 tab PO DAILY 02/28/21 03/27/22 Donepezil [Aricept] 1 tablet PO HS 03/27/22 03/27/22 Lactulose 10 gm PO DAILY PRN 03/27/22 03/27/22 rOPINIRole HCL [Requip XL] 2 mg PO DAILY 03/27/22 03/27/22 Previous Rx's Medication Instructions Recorded Aspirin 81 mg PO DAILY tab 03/28/22 Atorvastatin [Lipitor] 80 mg PO HS #90 tab 03/28/22 Clopidogrel [Plavix] 75 mg PO DAILY #90 tab 03/28/22 Metoprolol Tartrate [Lopressor] 25 mg PO BID #180 tab 03/28/22 Nitroglycerin Sl Tabs [Nitrostat] 0.4 mg SUBLINGUAL Q5M PRN #25 tab 03/28/22 Allergies Allergy/AdvReac Type Severity Reaction Status Date / Time No Known Allergies Allergy Verified 04/22/22 11:40 Review of Systems ROS Statement: Those systems with pertinent positive or pertinent negative responses have been documented in the HPI. ROS Other: All systems not noted in ROS Statement are negative. 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"-told on previous EKG his diaghragm "was not healthy", constipation, "when I eat greasy,fatty or fried food it hard to digest it", feels heavy feeling after eating, History of Any Multi-Drug Resistant Organisms: None Reported Past Surgical History: Hernia Repair, Prostate Surgery Additional Past Surgical History / Comment(s): rectal fistula surgery, keegan cataract surgery Past Anesthesia/Blood Transfusion Reactions: No Reported Reaction Past Psychological History: No Psychological Hx Reported Smoking Status: Never smoker Past Alcohol Use History: None Reported Past Drug Use History: None Reported - Past Family History Mother Family Medical History: Cancer General Exam - General Exam Comments Initial Comments: GENERAL: Patient is well-developed and well-nourished. Patient is nontoxic and well- hydrated and is in mild distress. ENT: Neck is soft and supple. No significant lymphadenopathy is noted. Oropharynx is clear. Moist mucous membranes. Neck has full range of motion without eliciting any pain. EYES: The sclera were anicteric and conjunctiva were pink and moist. Extraocular movements were intact and pupils were equal round and reactive to light. Eyelids were unremarkable. PULMONARY: Unlabored respirations. Good breath sounds bilaterally. No audible rales rhonchi or wheezing was noted. CARDIOVASCULAR: There is a regular rate and rhythm without any murmurs gallops or rubs. ABDOMEN: Soft and nontender with normal bowel sounds. SKIN: Skin is clear with no lesions or rashes and otherwise unremarkable. NEUROLOGIC: Patient is alert and oriented x3. Cranial nerves II through XII are grossly intact. Motor and sensory are also intact. Normal speech, volume and content. Symmetrical smile. MUSCULOSKELETAL: Normal extremities with adequate strength and full range of motion. LYMPHATICS: No significant lymphadenopathy is noted PSYCHIATRIC: Normal psychiatric evaluation. Limitations: no limitations Course Vital Signs 04/22/22 04/22/22 04/22/22 11:37 12:18 12:19 Temperature 98.4 F Pulse Rate 65 61 63 Respiratory 20 20 18 Rate Blood Pressure 124/71 127/84 127/84 O2 Sat by Pulse 96 98 96 Oximetry 11/04/22/22 04/22/22 12:20 12:30 12:40 Temperature Pulse Rate 59 L 59 L 64 Respiratory 14 20 16 Rate Blood Pressure 127/84 127/84 144/94 O2 Sat by Pulse 96 95 94 L Oximetry 04/22/22 04/22/22 04/22/22 13:10 13:20 13:30 Temperature Pulse Rate 55 L 54 L 61 Respiratory 16 16 20 Rate Blood Pressure 117/80 117/80 O2 Sat by Pulse 96 95 95 Oximetry 04/22/22 13:40 Temperature Pulse Rate 53 L Respiratory 13 Rate Blood Pressure 106/68 O2 Sat by Pulse 97 Oximetry Medical Decision Making - Medical Decision Making I interpreted the EKG. EKG shows sinus bradycardia 55 bpm MD interval is on a 47 QRS is 94 QT interval 442 QTC is 432. EKG shows no ST segment elevation or depression. Chest x-ray is interpreted by me. I saw no acute abnormalities. CT of the chest was interpreted by me. There was a small filling defect in the right upper lobe. I spoke with Dr. Sorensen and he agreed with the heparin wanted echo and wanted serial troponins. I spoke with Dr. Escobedo he agreed to admit the patient I admitted the patient I wrote admitting orders. - Lab Data Result diagrams: 04/22/22 13:03 04/22/22 13:03 Lab Results 04/22/22 04/22/22 04/22/22 Range/Units 13:03 13:03 13:03 WBC 5.8 (3.8-10.6) k/uL RBC 5.07 (4.30-5.90) m/uL Hgb 15.0 (13.0-17.5) gm/dL Hct 45.0 (39.0-53.0) % MCV 88.8 (80.0-100.0) fL MCH 29.6 (25.0-35.0) pg MCHC 33.3 (31.0-37.0) g/dL RDW 13.6 (11.5-15.5) % Plt Count 137 L (150-450) k/uL MPV 10.0 Neutrophils % 56 % Lymphocytes % 29 % Monocytes % 7 % Eosinophils % 5 % Basophils % 1 % Neutrophils # 3.2 (1.3-7.7) k/uL Lymphocytes # 1.7 (1.0-4.8) k/uL Monocytes # 0.4 (0-1.0) k/uL Eosinophils # 0.3 (0-0.7) k/uL Basophils # 0.1 (0-0.2) k/uL Hypochromasia Slight PT 9.9 (9.0-12.0) sec INR 0.9 (<1.2) APTT 24.7 (22.0-30.0) sec D-Dimer 3.29 H (<0.60) mg/L FEU Sodium 138 (137-145) mmol/L Potassium 4.6 (3.5-5.1) mmol/L Chloride 105 (98-107) mmol/L Carbon Dioxide 29 (22-30) mmol/L Anion Gap 4 mmol/L BUN 18 (9-20) mg/dL Creatinine 0.84 (0.66-1.25) mg/dL Est GFR (CKD-EPI)AfAm >90 (>60 ml/min/1.73 sqM) Est GFR (CKD-EPI)NonAf 86 (>60 ml/min/1.73 sqM) Glucose 94 (74-99) mg/dL Calcium 8.9 (8.4-10.2) mg/dL Magnesium 2.1 (1.6-2.3) mg/dL Total Bilirubin 0.7 (0.2-1.3) mg/dL AST 33 (17-59) U/L ALT 30 (4-49) U/L Alkaline Phosphatase 154 H (38-126) U/L Troponin I (0.000-0.034) ng/mL Total Protein 6.6 (6.3-8.2) g/dL Albumin 4.1 (3.5-5.0) g/dL 04/22/22 Range/Units 13:03 WBC (3.8-10.6) k/uL RBC (4.30-5.90) m/uL Hgb (13.0-17.5) gm/dL Hct (39.0-53.0) % MCV (80.0-100.0) fL MCH (25.0-35.0) pg MCHC (31.0-37.0) g/dL RDW (11.5-15.5) % Plt Count (150-450) k/uL MPV Neutrophils % % Lymphocytes % % Monocytes % % Eosinophils % % Basophils % % Neutrophils # (1.3-7.7) k/uL Lymphocytes # (1.0-4.8) k/uL Monocytes # (0-1.0) k/uL Eosinophils # (0-0.7) k/uL Basophils # (0-0.2) k/uL Hypochromasia PT (9.0-12.0) sec INR (<1.2) APTT (22.0-30.0) sec D-Dimer (<0.60) mg/L FEU Sodium (137-145) mmol/L Potassium (3.5-5.1) mmol/L Chloride (98-107) mmol/L Carbon Dioxide (22-30) mmol/L Anion Gap mmol/L BUN (9-20) mg/dL Creatinine (0.66-1.25) mg/dL Est GFR (CKD-EPI)AfAm (>60 ml/min/1.73 sqM) Est GFR (CKD-EPI)NonAf (>60 ml/min/1.73 sqM) Glucose (74-99) mg/dL Calcium (8.4-10.2) mg/dL Magnesium (1.6-2.3) mg/dL Total Bilirubin (0.2-1.3) mg/dL AST (17-59) U/L ALT (4-49) U/L Alkaline Phosphatase (38-126) U/L Troponin I <0.012 (0.000-0.034) ng/mL Total Protein (6.3-8.2) g/dL Albumin (3.5-5.0) g/dL Disposition Clinical Impression: Pulmonary embolism Disposition: ADMITTED IP TO THIS HOSP Referrals: Wilma Escobedo MD [Primary Care Provider] - 1-2 days Time of Disposition: 15:19
--- NOTE | 2022-04-22 14:48 | CT ---
EXAMINATION TYPE: CT chest angio for PE DATE OF EXAM: 04/22/2022 COMPARISON: Chest x-ray 04/22/2000 HISTORY: pe CT DLP: 374.7 mGycm Automated exposure control for dose reduction was used. CONTRAST: CT Chest for pulmonary embolism performed with with IV Contrast, patient injected with 40 mL of Isovu e 370. FINDINGS: LUNGS: A motion artifact limits assessment. Subsegmental changes at the lung bases most typical of at electasis. No sizable pleural effusion or pneumothorax. Assessment for interstitial edema limited due to motion artifact. There is a small nodule within the right upper lobe axial image 72 measuring mil limeters. MEDIASTINUM: Exam limited due to respiratory motion and artifact. There is no central pulmonary embol ism within the right main, right or left pulmonary arteries. Secondary segmental pulmonary embolism w ould be difficult to exclude. Subsegmental nonenhancement of the distal right upper lobe arterial bra nch. The heart is enlarged. The aorta measures 4.1 cm compatible with mild aneurysmal dilation of the asce nding segment. OTHER: Chronic appearing compression fracture lower lumbar spine with multilevel hypertrophic degene rative changes large hiatal hernia noted . Chronic-appearing compression deformity with vertebral daniel sty noted on the field scout image. IMPRESSION: 1. Cardiomegaly with no diagnostic evidence of central pulmonary embolism. Secondary and distal branc hes are limited due to artifact. Findings are felt suspicious for a right upper lobe subsegmental michelle ling defect axial image 75 through image 83 and suspicious for a small distal pulmonary embolism. 2. Subsegmental consolidation and groundglass changes most typical of atelectasis from respiratory mo tion artifact.
[2022-04-22] MEDS ORDERED: HEPARIN SODIUM 1,000 UN/ML (10ML VL) IV ONE (15:04)
[2022-04-22] MEDS ORDERED: SODIUM CHLORIDE 0.9% 1,000 ML IV ONE (15:19)
[2022-04-22] MEDS: HEPARIN SOD,PORK IN 0.45% NACL 25,000 UNIT in 0.45% NACL 1 250ML.BAG IV SCH (15:57)
[2022-04-22] MEDS ORDERED: LACTULOSE 20 GM/30 ML CUP PO PRN (16:58)
[2022-04-22] MEDS ORDERED: NITROGLYCERIN SL TABS 0.4 MG TAB SUBLINGUAL PRN (16:58)
[2022-04-22] MEDS ORDERED: DOCUSATE 100 MG CAP PO PRN (16:58)
--- NOTE | 2022-04-22 18:00 | CA ---
Transthoracic Echo Report Name: Paco Jacobo Age: 76 Gender: M : 1945 Exam Date: 04/22/2022 15:57 Exam Location: [facility] Ht (in): 63 Wt (lb): 180 Ordering Physician: Jabier Garrison MD Attending/Referring Phys: Hospitalist Physician Lynda Blanton RDCS Procedure CPT: Indications: Pulmonary Embolism Cardiac Hx: Technical Quality: Contrast 1: Total Dose (mL): Contrast 2: Total Dose (mL): MEASUREMENTS (Male / Female) Normal Values 2D ECHO LV Diastolic Diameter PLAX 4.2 cm 4.2 - 5.9 / 3.9 - 5.3 cm LV Systolic Diameter PLAX 3.0 cm IVS Diastolic Thickness 1.6 cm 0.6 - 1.0 / 0.6 - 0.9 cm LVPW Diastolic Thickness 1.5 cm 0.6 - 1.0 / 0.6 - 0.9 cm LV Relative Wall Thickness 0.7 RV Internal Dim ED PLAX 4.2 cm LA Volume 70.9 cm??? 18 - 58 / 22 - 52 cm??? M-MODE Aortic Root Diameter MM 3.8 cm LA Systolic Diameter MM 4.8 cm LA Ao Ratio MM 1.3 AV Cusp Separation MM 1.9 cm DOPPLER AV Peak Velocity 185.9 cm/s AV Peak Gradient 13.8 mmHg AV Mean Velocity 112.7 cm/s AV Mean Gradient 6.1 mmHg AV Velocity Time Integral 34.3 cm AI Peak Velocity 459.1 cm/s AI Peak Gradient 84.3 mmHg AI Pressure Half Time 513.0 ms LVOT Peak Velocity 84.8 cm/s LVOT Peak Gradient 2.9 mmHg LVOT Velocity Time Integral 18.9 cm MV Area PHT 2.7 cm??? Mitral E Point Velocity 73.8 cm/s Mitral A Point Velocity 53.7 cm/s Mitral E to A Ratio 1.4 MV Deceleration Time 278.9 ms MV E' Velocity 5.5 cm/s Mitral E to MV E' Ratio 13.4 TR Peak Velocity 255.3 cm/s TR Peak Gradient 26.1 mmHg Right Ventricular Systolic Press 31.1 mmHg FINDINGS Left Ventricle Moderately increased septal wall thickness. Normal left ventricular systolic function with no obvious regional wall motion abnormalities. Left ventricular ejection fraction is estimated at 55-60 %. Right Ventricle Moderate right ventricular dilatation. Right ventricular systolic pressure within normal limits. No right heart strain noted, TAPSE is 24 mm. Right Atrium Normal right atrial size. Left Atrium Moderately increased left atrial volume. Mildly increased left atrial area. Mitral Valve Mild thickening/calcification of the anterior mitral valve leaflet. Mild mitral annular calcification. [id number] mitral regurgitation. Aortic Valve Diffuse thickening (sclerosis) of the aortic valve cusps without reduced excursion. Aortic valve sclerosis. Mild aortic regurgitation. Tricuspid Valve Mild tricuspid regurgitation.structurally normal tricuspid valve. Pulmonic Valve Pulmonic valve not well visualized. Pericardium No pericardial effusion. Aorta Normal size aortic root and proximal ascending aorta. CONCLUSIONS 1. Normal size and systolic function 2. Dilated right ventricle with normal right ventricle systolic pressure and no evidence of right ventricular strain 3. Mild to moderate mitral with mild aortic and tricuspid regurgitation Previewed by: Dr. Sharon Marrero MD (Electronically Signed) Final Date: 22 April 2022 17:59
--- NOTE | 2022-04-22 18:30 | P.HPIM ---
History of Present Illness H&P Date: 04/22/22 Paco Jacobo, is a 76-year-old male who presented to [facility] emergency room with a chief complaint of chest pain and shortness of breath on and off for the last 10 days. Patient is well known to my practice he had similar symptoms about 2 months ago he was referred to Dr. Marrero who performed cardiac catheterization and 2 stent placement to the RCA on 03/27/2022 He was evaluated in the emergency room vital examination on presentation revealed a temperature of 98.4 pulse 65 respiration 20 lungs pressure 124/71 pulse ox 96% on room air Laboratory data revealed a white blood count of 5.8 hemoglobin 15.0 platelet count 137 d-dimer was elevated at 3.29 troponin normal at less than 0.012 Testing in the emergency room revealed patient underwent CT angiogram of the chest in the emergency room that revealed evidence of cardiomegaly and was suspicious for right upper lobe subsegmental filling defect suspicious for small distal pulmonary embolism, he was started on IV heparin in emergency room. 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"-told on previous EKG his diaghragm "was not healthy", constipation, "when I eat greasy,fatty or fried food it hard to digest it", feels heavy feeling after eating, History of Any Multi-Drug Resistant Organisms: None Reported Past Surgical History: Hernia Repair, Prostate Surgery Additional Past Surgical History / Comment(s): rectal fistula surgery, keegan cataract surgery Past Anesthesia/Blood Transfusion Reactions: No Reported Reaction Past Psychological History: No Psychological Hx Reported Smoking Status: Never smoker Past Alcohol Use History: None Reported Past Drug Use History: None Reported - Past Family History Mother Family Medical History: Cancer Medications and Allergies Home Medications Medication Instructions Recorded Confirmed Type Docusate Sodium [Dok] 100 mg PO DAILY PRN 12/20/19 04/22/22 History Pantoprazole [Protonix] 40 mg PO DAILY 02/28/21 04/22/22 History Donepezil [Aricept] 5 mg PO HS 03/27/22 04/22/22 History Aspirin 81 mg PO DAILY tab 03/28/22 04/22/22 Rx Atorvastatin [Lipitor] 80 mg PO HS #90 tab 03/28/22 04/22/22 Rx Clopidogrel [Plavix] 75 mg PO DAILY #90 tab 03/28/22 04/22/22 Rx Metoprolol Tartrate [Lopressor] 25 mg PO BID #180 tab 03/28/22 04/22/22 Rx Nitroglycerin Sl Tabs [Nitrostat] 0.4 mg SUBLINGUAL Q5M PRN #25 tab 03/28/22 04/22/22 Rx Lactulose [Constulose] 10 gm PO DAILY PRN 04/22/22 04/22/22 History Linaclotide [Linzess] 290 mcg PO DAILY 04/22/22 04/22/22 History rOPINIRole HCL [Requip] 2 mg PO DAILY 04/22/22 04/22/22 History Allergies Allergy/AdvReac Type Severity Reaction Status Date / Time No Known Allergies Allergy Verified 04/22/22 15:29 Physical Exam Vitals: Vital Signs Temp Pulse Resp BP Pulse Ox 04/22/22 16:00 74 18 96 04/22/22 13:40 53 L 13 106/68 97 04/22/22 13:30 61 20 117/80 95 04/22/22 13:20 54 L 16 117/80 95 04/22/22 13:10 55 L 16 96 04/22/22 12:40 64 16 144/94 94 L 04/22/22 12:30 59 L 20 127/84 95 04/22/22 12:20 59 L 14 127/84 96 04/22/22 12:19 63 18 127/84 96 04/22/22 12:18 61 20 127/84 98 04/22/22 11:37 98.4 F 65 20 124/71 96 Intake and Output 04/22/22 04/22/22 04/22/22 06:59 14:59 22:59 Other: Weight 81.647 kg In general patient is alert and oriented x 3 in no distress HEENT head normocephalic and atraumatic Neck is supple no JVD no goiter no lymphadenopathy no carotid bruit Chest examination is clear to auscultation no crackles no wheezing Cardiac exam reveals regular heart sounds S1 and S2 no gallops no murmurs Abdomen is soft nontender no organomegaly with normal bowel sounds Extremity exam reveals no edema no cyanosis or clubbing Neurological examination reveals no gross focal deficits Results CBC & Chem 7: 04/22/22 13:03 04/22/22 13:03 Labs: Abnormal Lab Results - Last 24 Hours (Table) 04/22/22 04/22/22 04/22/22 Range/Units 13:03 13:03 13:03 Plt Count 137 L (150-450) k/uL D-Dimer 3.29 H (<0.60) mg/L FEU Alkaline Phosphatase 154 H (38-126) U/L Assessment and Plan Plan: Episodes of chest pain and shortness of breath for the last 10 days Elevated d-dimer on presentation. Evidence of small peripheral pulmonary embolism Known history of coronary artery disease with history of angioplasty and 2 stent placement to the RCA on 03/27/2022 Underlying history of hypertension Underlying history of hyperlipidemia Underlying history of restless leg syndrome Underlying history of chronic constipation Underlying history of gastroesophageal reflux disease Underlying history of mild dementia At this time patient was seen and examined in the emergency room Home medications reviewed and reordered Patient was started on IV heparin Echocardiogram and consultation for vascular surgery was initiated We will add consult for cardiology due to recent history of cardiac catheterization with angioplasty and stent placement Will check bilateral lower extremity Doppler
--- NOTE | 2022-04-22 21:35 | US ---
EXAMINATION TYPE: US venous doppler duplex LE DATE OF EXAM: 04/22/2022 7:48 PM COMPARISON: NONE CLINICAL HISTORY: Pulmonary embolism. PE. Unable to obtain hx due to patient speaking different langu age. SIDE PERFORMED: Bilateral TECHNIQUE: The lower extremity deep venous system is examined utilizing real time linear array sonog bong with graded compression, doppler sonography and color-flow sonography. VESSELS IMAGED: Common Femoral Vein Deep Femoral Vein Greater Saphenous Vein * Femoral Vein Popliteal Vein Small Saphenous Vein * Proximal Calf Veins (* superficial vessels) Right Leg: Possible echoes seen in DFV? Popliteal vein limited due to small size of vein, color flow appeared wnl Left Leg: No evidence for DVT Grayscale, color doppler, spectral doppler imaging performed of the deep veins of the lower extremiti es. There is normal flow, compressibility, vascular waveforms. IMPRESSION: 1. The right deep femoral vein demonstrates internal echoes which could represent deep vein thrombos is. Limited evaluation of the popliteal vein on the right. 2. No evidence of deep vein thrombosis of the left lower extremity.
[2022-04-22] MEDS: METOPROLOL TARTRATE 25 MG TAB PO SCH (22:15)
[2022-04-22] MEDS: DONEPEZIL 5 MG TAB PO SCH (22:15)
[2022-04-22] MEDS: ATORVASTATIN 80 MG TAB PO SCH (22:15)
[2022-04-22 23:43] LABS: Magnesium 2.2 mg/dL (1.6-2.3); Potassium 3.8 mmol/L (3.5-5.1)
[2022-04-23] MEDS: SODIUM CHLORIDE 0.9% 1,000 ML IV SCH ×2 (05:27→20:03)
[2022-04-23 06:11] LABS: Basophils # (A) 0.1 k/uL (0-0.2); Basophils % (A) 1 %; Eosinophils # (A) 0.2 k/uL (0-0.7); Eosinophils % (A) 4 %; HCT 37.7 % (39.0-53.0); HGB 12.6 gm/dL (13.0-17.5); Lymphocytes # (A) 1.3 k/uL (1.0-4.8); Lymphocytes % (A) 21 %; MCH 29.5 pg (25.0-35.0); MCHC 33.5 g/dL (31.0-37.0); MCV 88.1 fL (80.0-100.0); Monocytes # (A) 0.4 k/uL (0-1.0); Monocytes % (A) 6 %; Neutrophils # (A) 4.2 k/uL (1.3-7.7); Neutrophils % (A) 67 %; Platelet Count 130 k/uL (150-450); RBC 4.28 m/uL (4.30-5.90); RDW 13.6 % (11.5-15.5); WBC 6.3 k/uL (3.8-10.6)
[2022-04-23 06:35] LABS: ALT 24 U/L (4-49); AST 31 U/L (17-59); African American GFR (CKD) >90 (>60 ml/min/1.73 sqM); Albumin 3.1 g/dL (3.5-5.0); Alkaline Phosphatase 129 U/L (38-126); Anion Gap 4 mmol/L; Blood Urea Nitrogen 23 mg/dL (9-20); Calcium 8.1 mg/dL (8.4-10.2); Carbon Dioxide 22 mmol/L (22-30); Chloride 110 mmol/L (98-107); Glucose 98 mg/dL (74-99); Non-African American GFR(CKD) 87 (>60 ml/min/1.73 sqM); Potassium 4.2 mmol/L (3.5-5.1); Sodium 136 mmol/L (137-145); Total Bilirubin 0.8 mg/dL (0.2-1.3); Total Protein 5.3 g/dL (6.3-8.2)
[2022-04-23] MEDS: PANTOPRAZOLE 40 MG TABLET PO SCH (06:39)
[2022-04-23] MEDS: Linaclotide [Linzess] 290 MCG Capsule PO SCH (08:42)
[2022-04-23] MEDS ORDERED: ASPIRIN 81 MG PO SCH (09:00)
[2022-04-23] MEDS: APIXABAN 5 MG TAB PO SCH ×2 (09:03→20:05)
[2022-04-23] MEDS: METOPROLOL TARTRATE 25 MG TAB PO SCH ×2 (09:04→19:59)
[2022-04-23] MEDS: CLOPIDOGREL 75 MG TAB PO SCH (09:04)
--- NOTE | 2022-04-23 11:49 | P.GSCN ---
History of Present Illness Consult date: 04/23/22 Reason for Consult: Pulmonary embolism, right lower extremity DVT Requesting physician: Jabier Garrison History of present illness: This is a pleasant 76-year-old male who speaks Vietnamese. The HPI was obtained through our interpreting service. Patient came in with complaints of chest pain for approximately last 10 days. Patient has a history of coronary artery disease status post recent stenting in March of this year. During his workup in the emergency department and elevated d-dimer, he underwent a CT angiogram of chest that reported no diagnostic evidence of central pulmonary embolism secondary distal branches limited due to artifact findings suspicious for right upper lobe subsegmental filling defect and suspicious for small distal pulmonary embolism. Vascular surgery was consulted for the above. Patient also had a venous duplex which reported right deep femoral vein demonstrating internal echoes which could represent deep vein thrombosis. Limited evaluation of popliteal vein on right no evidence of DVT in left lower extremity. Through the camera mechanic patient was asked if he has had any recent surgeries travel or history of DVT or pulmonary embolism. Patient has recently undergone cardiac catheterization with stenting in March of this year. He states he is eating more of a sedentary lifestyle other than going out to do some light grocery shopping. He currently complains of some pain in his right calf and a headache. Denies any chest pain or shortness of breath at this time. Patient was started on a heparin drip. Cardiology is also following and has transitioned patient to Eliquis 10 mg BID. Patient also currently on Plavix. Echocardiogram reported normal size and systolic function. Dilated right ventricle with normal right ventricle systolic pressure and no evidence of right ventricular strain. Mild to moderate mitral with mild aortic and tricuspid regurgitation. EF 55-60% Review of Systems A 14 point review systems was completed all pertinent positives and negatives as stated in the HPI. 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"-told on previous EKG his diaghragm "was not healthy", constipation, "when I eat greasy,fatty or fried food it hard to digest it", feels heavy feeling after eating, History of Any Multi-Drug Resistant Organisms: None Reported Past Surgical History: Hernia Repair, Prostate Surgery Additional Past Surgical History / Comment(s): rectal fistula surgery, keegan cataract surgery Past Anesthesia/Blood Transfusion Reactions: No Reported Reaction Past Psychological History: No Psychological Hx Reported Smoking Status: Former smoker Past Alcohol Use History: None Reported Additional Past Alcohol Use History / Comment(s): quit smoking 1986 Past Drug Use History: None Reported - Past Family History Mother Family Medical History: Cancer Medications and Allergies Home Medications Medication Instructions Recorded Confirmed Type Docusate Sodium [Dok] 100 mg PO DAILY PRN 12/20/19 04/22/22 History Pantoprazole [Protonix] 40 mg PO DAILY 02/28/21 04/22/22 History Donepezil [Aricept] 5 mg PO HS 03/27/22 04/22/22 History Aspirin 81 mg PO DAILY tab 03/28/22 04/22/22 Rx Atorvastatin [Lipitor] 80 mg PO HS #90 tab 03/28/22 04/22/22 Rx Clopidogrel [Plavix] 75 mg PO DAILY #90 tab 03/28/22 04/22/22 Rx Metoprolol Tartrate [Lopressor] 25 mg PO BID #180 tab 03/28/22 04/22/22 Rx Nitroglycerin Sl Tabs [Nitrostat] 0.4 mg SUBLINGUAL Q5M PRN #25 tab 03/28/22 04/22/22 Rx Lactulose [Constulose] 10 gm PO DAILY PRN 04/22/22 04/22/22 History Linaclotide [Linzess] 290 mcg PO DAILY 04/22/22 04/22/22 History rOPINIRole HCL [Requip] 2 mg PO DAILY 04/22/22 04/22/22 History Allergies Allergy/AdvReac Type Severity Reaction Status Date / Time No Known Allergies Allergy Verified 04/22/22 15:29 Surgical - Exam Vital Signs Temp Pulse Resp BP Pulse Ox 98.4 F 65 20 124/71 96 04/22/22 11:37 04/22/22 11:37 04/22/22 11:37 04/22/22 11:37 04/22/22 11:37 General appearance: The patient is alert, oriented, appears in no acute distress. HET: Head is normocephalic and atraumatic. Pupils are equal and reactive. Neck: Supple without lymphadenopathy. Trachea midline. No audible carotid bruit. Heart: Regular. Lungs: Equal expansion, normal respiratory effort. Abdomen: Soft, nontender, nondistended. Extremities: Normal skin color and turgor. No cyanosis, rash, ulceration, clubbing, or edema. Radial and pedal pulses are 2/4 bilaterally. Neurological: Alert and oriented. Results - Labs 04/23/22 05:48 04/23/22 05:48 Abnormal Lab Results - Last 24 Hours (Table) 04/22/22 04/22/22 04/22/22 Range/Units 13:03 13:03 13:03 RBC (4.30-5.90) m/uL Hgb (13.0-17.5) gm/dL Hct (39.0-53.0) % Plt Count 137 L (150-450) k/uL APTT (22.0-30.0) sec D-Dimer 3.29 H (<0.60) mg/L FEU Sodium (137-145) mmol/L Chloride (98-107) mmol/L BUN (9-20) mg/dL Calcium (8.4-10.2) mg/dL Alkaline Phosphatase 154 H (38-126) U/L Total Protein (6.3-8.2) g/dL Albumin (3.5-5.0) g/dL 04/22/22 04/23/22 04/23/22 Range/Units 22:01 05:48 05:48 RBC 4.28 L (4.30-5.90) m/uL Hgb 12.6 L (13.0-17.5) gm/dL Hct 37.7 L (39.0-53.0) % Plt Count 130 L (150-450) k/uL APTT 107.5 H* (22.0-30.0) sec D-Dimer (<0.60) mg/L FEU Sodium 136 L (137-145) mmol/L Chloride 110 H (98-107) mmol/L BUN 23 H (9-20) mg/dL Calcium 8.1 L (8.4-10.2) mg/dL Alkaline Phosphatase 129 H (38-126) U/L Total Protein 5.3 L (6.3-8.2) g/dL Albumin 3.1 L (3.5-5.0) g/dL 04/23/22 Range/Units 05:48 RBC (4.30-5.90) m/uL Hgb (13.0-17.5) gm/dL Hct (39.0-53.0) % Plt Count (150-450) k/uL APTT 68.3 H (22.0-30.0) sec D-Dimer (<0.60) mg/L FEU Sodium (137-145) mmol/L Chloride (98-107) mmol/L BUN (9-20) mg/dL Calcium (8.4-10.2) mg/dL Alkaline Phosphatase (38-126) U/L Total Protein (6.3-8.2) g/dL Albumin (3.5-5.0) g/dL Diabetes panel 04/22/22 04/22/22 04/23/22 Range/Units 13:03 23:16 05:48 Sodium 138 136 L (137-145) mmol/L Potassium 4.6 3.8 4.2 (3.5-5.1) mmol/L Chloride 105 110 H (98-107) mmol/L Carbon Dioxide 29 22 (22-30) mmol/L BUN 18 23 H (9-20) mg/dL Creatinine 0.84 0.81 (0.66-1.25) mg/dL Glucose 94 98 (74-99) mg/dL Calcium 8.9 8.1 L (8.4-10.2) mg/dL AST 33 31 (17-59) U/L ALT 30 24 (4-49) U/L Alkaline Phosphatase 154 H 129 H (38-126) U/L Total Protein 6.6 5.3 L (6.3-8.2) g/dL Albumin 4.1 3.1 L (3.5-5.0) g/dL Calcium panel 04/22/22 04/23/22 Range/Units 13:03 05:48 Calcium 8.9 8.1 L (8.4-10.2) mg/dL Albumin 4.1 3.1 L (3.5-5.0) g/dL Pituitary panel 04/22/22 04/22/22 04/23/22 Range/Units 13:03 23:16 05:48 Sodium 138 136 L (137-145) mmol/L Potassium 4.6 3.8 4.2 (3.5-5.1) mmol/L Chloride 105 110 H (98-107) mmol/L Carbon Dioxide 29 22 (22-30) mmol/L BUN 18 23 H (9-20) mg/dL Creatinine 0.84 0.81 (0.66-1.25) mg/dL Glucose 94 98 (74-99) mg/dL Calcium 8.9 8.1 L (8.4-10.2) mg/dL Adrenal panel 04/22/22 04/22/22 04/23/22 Range/Units 13:03 23:16 05:48 Sodium 138 136 L (137-145) mmol/L Potassium 4.6 3.8 4.2 (3.5-5.1) mmol/L Chloride 105 110 H (98-107) mmol/L Carbon Dioxide 29 22 (22-30) mmol/L BUN 18 23 H (9-20) mg/dL Creatinine 0.84 0.81 (0.66-1.25) mg/dL Glucose 94 98 (74-99) mg/dL Calcium 8.9 8.1 L (8.4-10.2) mg/dL Total Bilirubin 0.7 0.8 (0.2-1.3) mg/dL AST 33 31 (17-59) U/L ALT 30 24 (4-49) U/L Alkaline Phosphatase 154 H 129 H (38-126) U/L Total Protein 6.6 5.3 L (6.3-8.2) g/dL Albumin 4.1 3.1 L (3.5-5.0) g/dL - Imaging Comments: See HPI for details Assessment and Plan Assessment: 1. Probable pulmonary embolism, CT angiogram report states suspicious for right upper lobe sub-segmental filling defect and suspicious for small distal pulmonary embolism 2. Right lower extremity DVT 3. Coronary artery disease recent stenting Plan: 1. Continue symptomatic and supportive care 2. Compression stockings bilateral lower extremities 3. Continue with recommendations from cardiology on anticoagulation 4. No indication for any vascular surgical intervention Thank you for this consultation, we will sign off at this time. The impression and plan of care has been dictated as directed. I performed a history and examination of this patient, discussed the same with the dictator. I agree with the dictator's note ,documented as a scribe. Any additional findings or plans will be noted.
[2022-04-23] MEDS: HEPARIN SOD,PORK IN 0.45% NACL 25,000 UNIT in 0.45% NACL 1 250ML.BAG IV SCH (12:57)
--- NOTE | 2022-04-23 13:27 | CONS ---
CONSULTATION HISTORY OF PRESENT ILLNESS: Paco Jacobo is a 76-year-old gentleman with a known history of calcified coronary artery, status post stenting involving the right coronary artery by Dr. Marrero, which was performed in March of this year. He went home and has been doing fairly well, but he came into the hospital with very nondescript complaints of what he described as a sharp pain on the left side of the chest and also on the right side of the chest that seemed to be somewhat pleuritic. It was difficult to communicate with the patient since he speaks only Occitan and limited Belarusian. However, he is not in any distress. The pain was very pleuritic in nature, and he had ultrasound of the lower extremities and venous Doppler performed as well as a CT angiogram. There is a possibility of a right deep femoral vein thrombosis. There is also a question of pulmonary embolism, although the data are inconclusive because of the quality of the study. The patient has a pleuritic pain, however, has been initiated on heparin. He is resting comfortably without symptoms. His troponin levels are unremarkable. D-dimer was 107 on arrival. PAST MEDICAL HISTORY: 1. CAD with prior PCI in March of this year. 2. Hypertension. 3. Hypercholesterolemia. SOCIAL HISTORY: This patient was not particularly sedentary. He is a reasonably active person. He is planning on leaving the country in a month or so. IMAGING STUDIES: The CT angiogram as well as the echocardiogram both suggested no evidence of right ventricular strain. There is mild right ventricular enlargement, but the right-sided pressures are normal. EKG revealed sinus mechanism. No acute changes. PHYSICAL EXAMINATION: VITAL SIGNS: On examination, blood pressure is 108/70, pulse rate is 68 per minute. HEENT: Unremarkable. Fundus was not examined by me. NECK: Supple. There is no JVD. I do not hear a carotid bruit. HEART: Reveals S1 and S2 heard normally with a short systolic murmur at the left sternal border, and also, there is a short systolic murmur at the base. LUNGS: Reveal bilateral decent air entry. ABDOMEN: Soft and nontender. LOWER EXTREMITIES: Reveal diminished pulses. CENTRAL NERVOUS SYSTEM: Normal. IMPRESSION: 1. Probable pulmonary embolism and deep venous thrombosis. 2. History of coronary artery disease with percutaneous coronary intervention of right coronary artery performed in the last week of March. 3. Hypertension. 4. Hyperlipidemia. RECOMMENDATIONS: I would recommend that we hold the beta-betty for bradycardia. Continue his current medical regimen, but I will add apixaban 10 mg b.i.d., for 1 week starting this evening and discontinue aspirin and place him on a combination of Plavix and apixaban. I have requested Dr. Marrero to see the patient as well because of some language barrier and he may have some other questions as well. Thank you very much for the consult. JUAN / IQRAN: [id number] /
[2022-04-23 17:09] VITALS: RESP 16
--- NOTE | 2022-04-23 17:40 | P.PN ---
Subjective Progress Note Date: 04/23/22 Paco Jacobo, is a 76-year-old male who presented to [facility] emergency room with a chief complaint of chest pain and shortness of breath on and off for the last 10 days. Patient is well known to my practice he had similar symptoms about 2 months ago he was referred to Dr. Marrero who performed cardiac catheterization and 2 stent placement to the RCA on 03/27/2022 He was evaluated in the emergency room vital examination on presentation revealed a temperature of 98.4 pulse 65 respiration 20 lungs pressure 124/71 pulse ox 96% on room air Laboratory data revealed a white blood count of 5.8 hemoglobin 15.0 platelet count 137 d-dimer was elevated at 3.29 troponin normal at less than 0.012 Testing in the emergency room revealed patient underwent CT angiogram of the chest in the emergency room that revealed evidence of cardiomegaly and was suspicious for right upper lobe subsegmental filling defect suspicious for small distal pulmonary embolism, he was started on IV heparin in emergency room. Patient was admitted to medical floor for further evaluation and treatment On 04/23/2022 patient was seen and examined on the medical floor, he is alert and oriented 3 in no apparent distress there is no fever or chills no headache or dizziness no chest pain no shortness of breath no cough no nausea or vomiting no abdominal pain no diarrhea and no urinary symptoms, testing reviewed with patient with possible small peripheral pulmonary embolism and the right lower extremity DVT, at this time patient was evaluated by vascular surgery and cardiology, he was started on an liquids 10 mg twice daily, possible discharge to home tomorrow Objective - Vital Signs Vital signs: Vital Signs Temp 98.5 F 04/23/22 08:00 Pulse 57 L 04/23/22 12:00 Resp 18 04/23/22 12:00 BP 102/50 04/23/22 12:00 Pulse Ox 97 04/23/22 12:00 FiO2 Intake & Output 04/22/22 04/23/22 04/23/22 18:59 06:59 18:59 Intake Total 183.131 180 Balance 183.131 180 Weight 81.647 kg 81.647 kg Intake: Intake, IV Titration 183.131 Amount Heparin Sod,Pork in 0.45% 183.131 NaCl 25,000 unit In 0.45 % NaCl 1 250ml.bag @ 18 UNITS/KG/HR 14.696 mls/hr IV .Q17H1M RAHUL Rx#: [id number] Oral 180 Other: Voiding Method Toilet # Voids 2 - Exam In general patient is alert and oriented x 3 in no distress HEENT head normocephalic and atraumatic Neck is supple no JVD no goiter no lymphadenopathy no carotid bruit Chest examination is clear to auscultation no crackles no wheezing Cardiac exam reveals regular heart sounds S1 and S2 no gallops no murmurs Abdomen is soft nontender no organomegaly with normal bowel sounds Extremity exam reveals no edema no cyanosis or clubbing Neurological examination reveals no gross focal deficits - Labs CBC & Chem 7: 04/23/22 05:48 04/23/22 05:48 Labs: Abnormal Lab Results - Last 24 Hours (Table) 04/22/22 04/23/22 04/23/22 Range/Units 22:01 05:48 05:48 RBC 4.28 L (4.30-5.90) m/uL Hgb 12.6 L (13.0-17.5) gm/dL Hct 37.7 L (39.0-53.0) % Plt Count 130 L (150-450) k/uL APTT 107.5 H* (22.0-30.0) sec Sodium 136 L (137-145) mmol/L Chloride 110 H (98-107) mmol/L BUN 23 H (9-20) mg/dL Calcium 8.1 L (8.4-10.2) mg/dL Alkaline Phosphatase 129 H (38-126) U/L Total Protein 5.3 L (6.3-8.2) g/dL Albumin 3.1 L (3.5-5.0) g/dL 04/23/22 04/23/22 Range/Units 05:48 12:30 RBC (4.30-5.90) m/uL Hgb (13.0-17.5) gm/dL Hct (39.0-53.0) % Plt Count (150-450) k/uL APTT 68.3 H 45.2 H (22.0-30.0) sec Sodium (137-145) mmol/L Chloride (98-107) mmol/L BUN (9-20) mg/dL Calcium (8.4-10.2) mg/dL Alkaline Phosphatase (38-126) U/L Total Protein (6.3-8.2) g/dL Albumin (3.5-5.0) g/dL Assessment and Plan Plan: Episodes of chest pain and shortness of breath for the last 10 days Elevated d-dimer on presentation. Evidence of small peripheral pulmonary embolism Known history of coronary artery disease with history of angioplasty and 2 stent placement to the RCA on 03/27/2022 Underlying history of hypertension Underlying history of hyperlipidemia Underlying history of restless leg syndrome Underlying history of chronic constipation Underlying history of gastroesophageal reflux disease Underlying history of mild dementia At this time patient was seen and examined in the emergency room Home medications reviewed and reordered Patient was started on IV heparin Echocardiogram and consultation for vascular surgery was initiated We will add consult for cardiology due to recent history of cardiac catheterization with angioplasty and stent placement Will check bilateral lower extremity Doppler
[2022-04-23] MEDS: ATORVASTATIN 80 MG TAB PO SCH (20:05)
[2022-04-23] MEDS: DONEPEZIL 5 MG TAB PO SCH (20:05)
[2022-04-24] MEDS: SODIUM CHLORIDE 0.9% 1,000 ML IV SCH ×2 (02:32→03:20)
[2022-04-24] MEDS: PANTOPRAZOLE 40 MG TABLET PO SCH (06:14)
[2022-04-24 08:30] LABS: Basophils # (A) 0.1 k/uL (0-0.2); Basophils % (A) 1 %; Eosinophils # (A) 0.3 k/uL (0-0.7); Eosinophils % (A) 5 %; HCT 41.8 % (39.0-53.0); HGB 13.8 gm/dL (13.0-17.5); Lymphocytes # (A) 1.4 k/uL (1.0-4.8); Lymphocytes % (A) 26 %; MCH 29.1 pg (25.0-35.0); MCHC 32.9 g/dL (31.0-37.0); MCV 88.7 fL (80.0-100.0); Mean Platelet Volume 9.9; Monocytes # (A) 0.4 k/uL (0-1.0); Monocytes % (A) 7 %; Neutrophils # (A) 3.1 k/uL (1.3-7.7); Neutrophils % (A) 58 %; Platelet Count 120 k/uL (150-450); RBC 4.72 m/uL (4.30-5.90); WBC 5.4 k/uL (3.8-10.6)
[2022-04-24 08:40] LABS: ALT 23 U/L (4-49); AST 25 U/L (17-59); African American GFR (CKD) >90 (>60 ml/min/1.73 sqM); Albumin 3.5 g/dL (3.5-5.0); Alkaline Phosphatase 120 U/L (38-126); Anion Gap 7 mmol/L; Blood Urea Nitrogen 11 mg/dL (9-20); Calcium 8.4 mg/dL (8.4-10.2); Carbon Dioxide 24 mmol/L (22-30); Chloride 110 mmol/L (98-107); Glucose 101 mg/dL (74-99); Non-African American GFR(CKD) 84 (>60 ml/min/1.73 sqM); Potassium 3.9 mmol/L (3.5-5.1); Sodium 141 mmol/L (137-145); Total Bilirubin 0.9 mg/dL (0.2-1.3); Total Protein 5.7 g/dL (6.3-8.2)
[2022-04-24] MEDS: Linaclotide [Linzess] 290 MCG Capsule PO SCH (09:06)
[2022-04-24] MEDS: METOPROLOL TARTRATE 25 MG TAB PO SCH (09:07)
[2022-04-24] MEDS: CLOPIDOGREL 75 MG TAB PO SCH (09:07)
[2022-04-24] MEDS: APIXABAN 5 MG TAB PO SCH (09:07)
[2022-04-24 11:50] VITALS: BP 107/64; PULSE 62; TEMP 98.3
--- NOTE | 2022-04-24 12:22 | P.PN ---
Subjective Progress Note Date: 04/24/22 HISTORY OF PRESENT ILLNESS: Patient examined this morning at the bedside. Patient denies chest pain or pressure. He denies shortness of breath. He has been transitioned to oral ant icoagulation. Vital signs are stable. PHYSICAL EXAM: VITAL SIGNS: Reviewed. GENERAL: Well-developed in no acute distress. NECK: Supple. No JVD or thyromegaly LUNGS: Respirations even and unlabored. Lungs essentially clear to auscultation bilaterally. HEART: Regular rate and rhythm. S1 and S2 heard. EXTREMITIES: Normal range of motion. No clubbing or cyanosis. Peripheral pulses intact. No lower extremity edema ASSESSMENT: Probable pulmonary embolism and deep vein thrombosis Coronary artery disease with PCI of the RCA, March 2022 Hypertension Hyperlipidemia PLAN: Continue current cardiac medications Patient may be discharged home today from a cardiac standpoint and follow up on an outpatient basis. Nurse practitioner note has been reviewed by physician. Signing provider agrees with the documented findings, assessment, and plan of care. Objective - Vital Signs Vital signs: Vital Signs Temp 98.3 F 04/24/22 11:49 Pulse 62 04/24/22 11:49 Resp 16 04/24/22 11:49 BP 107/64 04/24/22 11:49 Pulse Ox 91 L 04/24/22 11:50 FiO2 Intake & Output 04/23/22 04/24/22 04/24/22 18:59 06:59 18:59 Intake Total 540 180 Balance 540 180 Intake: Oral 540 180 Other: Voiding Method Toilet # Voids 1 - Labs CBC & Chem 7: 04/24/22 07:43 04/24/22 07:43 Labs: Abnormal Lab Results - Last 24 Hours (Table) 04/23/22 04/24/22 04/24/22 Range/Units 12:30 07:43 07:43 Plt Count 120 L (150-450) k/uL APTT 45.2 H (22.0-30.0) sec Chloride 110 H (98-107) mmol/L Glucose 101 H (74-99) mg/dL Total Protein 5.7 L (6.3-8.2) g/dL
--- NOTE | 2022-04-24 18:12 | P.DS ---
Providers Date of admission: 04/22/22 15:21 Expected date of discharge: 04/24/22 Attending physician: Wilma Escobedo Consults: 04/22/22 18:30 Consult Physician Routine Consulting Provider: Sharon Marrero Consult Reason/Comments: Chest pain Do you want consulting provider notified?: Yes Primary care physician: Wilma Fanny [facility] Course: Diagnosis on discharge: Episodes of chest pain and shortness of breath for the last 10 days Elevated d-dimer on presentation. Evidence of small peripheral pulmonary embolism Known history of coronary artery disease with history of angioplasty and 2 stent placement to the RCA on 03/27/2022 Underlying history of hypertension Underlying history of hyperlipidemia Underlying history of restless leg syndrome Underlying history of chronic constipation Underlying history of gastroesophageal reflux disease Underlying history of mild dementia Hospital course: Paco Jacobo, is a 76-year-old male who presented to [facility] emergency room with a chief complaint of chest pain and shortness of breath on and off for the last 10 days. Patient is well known to my practice he had similar symptoms about 2 months ago he was referred to Dr. Marrero who performed cardiac catheterization and 2 stent placement to the RCA on 03/27/2022 He was evaluated in the emergency room vital examination on presentation revealed a temperature of 98.4 pulse 65 respiration 20 lungs pressure 124/71 pulse ox 96% on room air Laboratory data revealed a white blood count of 5.8 hemoglobin 15.0 platelet count 137 d-dimer was elevated at 3.29 troponin normal at less than 0.012 Testing in the emergency room revealed patient underwent CT angiogram of the chest in the emergency room that revealed evidence of cardiomegaly and was suspicious for right upper lobe subsegmental filling defect suspicious for small distal pulmonary embolism, he was started on IV heparin in emergency room. Patient was admitted to medical floor for further evaluation and treatment On 04/23/2022 patient was seen and examined on the medical floor, he is alert and oriented 3 in no apparent distress there is no fever or chills no headache or dizziness no chest pain no shortness of breath no cough no nausea or vomiting no abdominal pain no diarrhea and no urinary symptoms, testing reviewed with patient with possible small peripheral pulmonary embolism and the right lower extremity DVT, at this time patient was evaluated by vascular surgery and cardiology, he was started on an liquids 10 mg twice daily, possible discharge to home tomorrow On 04/24/2022 patient was seen and examined on the medical floor, there is no fever or chills no headache or dizziness no chest pain no shortness of breath no cough no nausea or vomiting no abdominal pain no diarrhea and no urinary symptoms, testing reviewed with patient with possible small peripheral pulmonary embolism and the right lower extremity DVT, at this time patient was evaluated by vascular surgery and cardiology, he was started on Eliquis 10 mg twice daily, he was cleared for discharge by vascular surgery and cardiology, he was given a prescription and instruction for Eliquis, follow up in our office within 1 week Plan - Discharge Summary Discharge Rx Participant: No New Discharge Prescriptions: New Apixaban [Eliquis] 10 mg PO BID tab Continue Docusate Sodium [Dok] 100 mg PO DAILY PRN PRN Reason: Constipation Metoprolol Tartrate [Lopressor] 25 mg PO BID #180 tab Clopidogrel [Plavix] 75 mg PO DAILY #90 tab rOPINIRole HCL [Requip] 2 mg PO DAILY Linaclotide [Linzess] 290 mcg PO DAILY Lactulose [Constulose] 10 gm PO DAILY PRN PRN Reason: Constipation Pantoprazole [Protonix] 40 mg PO DAILY Donepezil [Aricept] 5 mg PO HS Atorvastatin [Lipitor] 80 mg PO HS #90 tab Nitroglycerin Sl Tabs [Nitrostat] 0.4 mg SUBLINGUAL Q5M PRN #25 tab PRN Reason: Chest Pain Discontinued Aspirin 81 mg PO DAILY tab Discharge Medication List Docusate Sodium [Dok] 100 mg PO DAILY PRN 12/20/19 [History] Pantoprazole [Protonix] 40 mg PO DAILY 02/28/21 [History] Donepezil [Aricept] 5 mg PO HS 03/27/22 [History] Atorvastatin [Lipitor] 80 mg PO HS #90 tab 03/28/22 [Rx] Clopidogrel [Plavix] 75 mg PO DAILY #90 tab 03/28/22 [Rx] Metoprolol Tartrate [Lopressor] 25 mg PO BID #180 tab 03/28/22 [Rx] Nitroglycerin Sl Tabs [Nitrostat] 0.4 mg SUBLINGUAL Q5M PRN #25 tab 03/28/22 [Rx] Lactulose [Constulose] 10 gm PO DAILY PRN 04/22/22 [History] Linaclotide [Linzess] 290 mcg PO DAILY 04/22/22 [History] rOPINIRole HCL [Requip] 2 mg PO DAILY 04/22/22 [History] Apixaban [Eliquis] 10 mg PO BID tab 04/24/22 [Rx] Follow up Appointment(s)/Referral(s): Sharon Marrero MD [STAFF PHYSICIAN] - 1 Week Wilma Escobedo MD [Primary Care Provider] - 1-2 days [facility] Visiting Nurse, [NON-STAFF] - Discharge Disposition: HOME SELF-CARE
== END 2022-04-24 16:49 | disposition home or self-care (01) ==
LOC: EC 11:16 → 3SCARD 15:21
PROVIDERS: ADMIT Internal Medicine; ATTEND Internal Medicine
DX: I26.99 Other pulmonary embolism without acute cor pulmonale (principal); I82.401 Acute embolism and thrombosis of unspecified deep veins of right lower extremity; I25.10 Atherosclerotic heart disease of native coronary artery without angina pectoris; I11.9 Hypertensive heart disease without heart failure; I08.1 Rheumatic disorders of both mitral and tricuspid valves; E78.00 Pure hypercholesterolemia, unspecified; G25.81 Restless legs syndrome; K59.09 Other constipation; K21.9 Gastro-esophageal reflux disease without esophagitis; F03.A0 Unspecified dementia, mild, without behavioral disturbance, psychotic disturbance, mood disturbance, and anxiety; R00.1 Bradycardia, unspecified; Z79.82 Long term (current) use of aspirin; Z79.02 Long term (current) use of antithrombotics/antiplatelets; Z79.899 Other long term (current) drug therapy; Z98.42 Cataract extraction status, left eye; Z95.5 Presence of coronary angioplasty implant and graft; Z98.41 Cataract extraction status, right eye; Z87.891 Personal history of nicotine dependence; Z86.718 Personal history of other venous thrombosis and embolism; Z98.890 Other specified postprocedural states; Z80.9 Family history of malignant neoplasm, unspecified
CPT/HCPCS: 96361; 96366 ×3; 96376; 96365; 99285; 36415; 94760; 93005; 93306; 85379; 80053 ×3; 83735; 84132; 84484 ×2; 85025 ×3; 85610; 85730 ×2; 71046; 93970; 71275; G0378 ×3; J1644 ×2; Q9967

== ENCOUNTER 2022-04-26 09:41 | Observation (INO) | payer MEDICARE, OTHER ==
[2022-04-26] MEDS ORDERED: NITROGLYCERIN OINT 1 INCH/GM PACKET TOPICAL STA (10:11)
[2022-04-26] MEDS ORDERED: ASPIRIN 81 MG PO STA (10:11)
--- NOTE | 2022-04-26 10:35 | ED ---
General Adult HPI - General Chief complaint: Chest Pain Stated complaint: chest pain Time Seen by Provider: 04/26/22 09:50 Source: patient, RN notes reviewed, old records reviewed Mode of arrival: ambulatory Limitations: language barrier - History of Present Illness Initial comments: This is a 76-year-old male who presents emergency Department complaining of chest pain and shortness of breath. Patient states he was just in the hospital for pulmonary embolism. Patient states this chest pain occurred this morning it has happened 3 or 4 times. Patient states came very sweaty when it occurred. Patient also states he became very short of breath occurred. Patient denies any recent fever chills or cough per patient denies any abdominal pain patient's nausea vomiting diarrhea. - Related Data Home Medications Medication Instructions Recorded Confirmed Docusate Sodium [Dok] 100 mg PO DAILY PRN 12/20/19 04/22/22 Pantoprazole [Protonix] 40 mg PO DAILY 02/28/21 04/22/22 Donepezil [Aricept] 5 mg PO HS 03/27/22 04/22/22 Lactulose [Constulose] 10 gm PO DAILY PRN 04/22/22 04/22/22 Linaclotide [Linzess] 290 mcg PO DAILY 04/22/22 04/22/22 rOPINIRole HCL [Requip] 2 mg PO DAILY 04/22/22 04/22/22 Previous Rx's Medication Instructions Recorded Atorvastatin [Lipitor] 80 mg PO HS #90 tab 03/28/22 Clopidogrel [Plavix] 75 mg PO DAILY #90 tab 03/28/22 Metoprolol Tartrate [Lopressor] 25 mg PO BID #180 tab 03/28/22 Nitroglycerin Sl Tabs [Nitrostat] 0.4 mg SUBLINGUAL Q5M PRN #25 tab 03/28/22 Apixaban [Eliquis] 10 mg PO BID tab 04/24/22 Allergies Allergy/AdvReac Type Severity Reaction Status Date / Time No Known Allergies Allergy Verified 04/26/22 09:47 Review of Systems ROS Statement: Those systems with pertinent positive or pertinent negative responses have been documented in the HPI. ROS Other: All systems not noted in ROS Statement are negative. 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"-told on previous EKG his diaghragm "was not healthy", const ipation, "when I eat greasy,fatty or fried food it hard to digest it", feels heavy feeling after eating, History of Any Multi-Drug Resistant Organisms: None Reported Past Surgical History: Hernia Repair, Prostate Surgery Additional Past Surgical History / Comment(s): rectal fistula surgery, keegan cataract surgery Past Anesthesia/Blood Transfusion Reactions: No Reported Reaction Past Psychological History: No Psychological Hx Reported Smoking Status: Former smoker Past Alcohol Use History: None Reported Past Drug Use History: None Reported - Past Family History Mother Family Medical History: Cancer General Exam - General Exam Comments Initial Comments: GENERAL: Patient is well-developed and well-nourished. Patient is nontoxic and well- hydrated and is in mild distress. ENT: Neck is soft and supple. No significant lymphadenopathy is noted. Oropharynx is clear. Moist mucous membranes. Neck has full range of motion without eliciting any pain. EYES: The sclera were anicteric and conjunctiva were pink and moist. Extraocular movements were intact and pupils were equal round and reactive to light. Eyelids were unremarkable. PULMONARY: Unlabored respirations. Good breath sounds bilaterally. No audible rales rhonchi or wheezing was noted. CARDIOVASCULAR: There is a regular rate and rhythm without any murmurs gallops or rubs. ABDOMEN: Soft and nontender with normal bowel sounds. SKIN: Skin is clear with no lesions or rashes and otherwise unremarkable. NEUROLOGIC: Patient is alert and oriented x3. Cranial nerves II through XII are grossly intact. Motor and sensory are also intact. Normal speech, volume and content. Symmetrical smile. MUSCULOSKELETAL: Normal extremities with adequate strength and full range of motion. No lower extremity swelling or edema. No calf tenderness. LYMPHATICS: No significant lymphadenopathy is noted PSYCHIATRIC: Normal psychiatric evaluation. Limitations: no limitations Course Vital Signs 04/26/22 04/26/22 04/26/22 09:44 10:09 10:47 Temperature 98.8 F Pulse Rate 69 63 89 Respiratory 18 16 16 Rate Blood Pressure 133/76 140/99 121/93 O2 Sat by Pulse 96 95 98 Oximetry Medical Decision Making - Medical Decision Making EKG was interpreted by me. EKG shows sinus rhythm at 60 bpm GA interval 150 QRS is 101 Q-T intervals 46 QTC is 412. Patient's EKG shows no ST segment elevation or depression. I interpreted the chest x-ray. Chest x-ray shows no acute abnormality. I spoke with the [facility] agreed to admit the patient admi tted the patient wrote admitting orders - Lab Data Result diagrams: 04/26/22 10:23 04/26/22 10:23 Lab Results 04/26/22 04/26/22 04/26/22 Range/Units 10:23 10:23 10:23 WBC 5.9 (3.8-10.6) k/uL RBC 5.06 (4.30-5.90) m/uL Hgb 15.1 (13.0-17.5) gm/dL Hct 44.6 (39.0-53.0) % MCV 88.1 (80.0-100.0) fL MCH 29.8 (25.0-35.0) pg MCHC 33.8 (31.0-37.0) g/dL RDW 13.7 (11.5-15.5) % Plt Count 131 L (150-450) k/uL MPV 10.2 Neutrophils % 61 % Lymphocytes % 23 % Monocytes % 8 % Eosinophils % 5 % Basophils % 1 % Neutrophils # 3.6 (1.3-7.7) k/uL Lymphocytes # 1.4 (1.0-4.8) k/uL Monocytes # 0.4 (0-1.0) k/uL Eosinophils # 0.3 (0-0.7) k/uL Basophils # 0.1 (0-0.2) k/uL PT 10.4 (9.0-12.0) sec INR 0.9 (<1.2) APTT 24.9 (22.0-30.0) sec Sodium 138 (137-145) mmol/L Potassium 4.7 (3.5-5.1) mmol/L Chloride 106 (98-107) mmol/L Carbon Dioxide 25 (22-30) mmol/L Anion Gap 7 mmol/L BUN 17 (9-20) mg/dL Creatinine 0.82 (0.66-1.25) mg/dL Est GFR (CKD-EPI)AfAm >90 (>60 ml/min/1.73 sqM) Est GFR (CKD-EPI)NonAf 87 (>60 ml/min/1.73 sqM) Glucose 99 (74-99) mg/dL Calcium 9.1 (8.4-10.2) mg/dL Magnesium 1.9 (1.6-2.3) mg/dL Total Bilirubin 1.0 (0.2-1.3) mg/dL AST 51 (17-59) U/L ALT 33 (4-49) U/L Alkaline Phosphatase 135 H (38-126) U/L Troponin I (0.000-0.034) ng/mL NT-Pro-B Natriuret Pep pg/mL Total Protein 6.7 (6.3-8.2) g/dL Albumin 4.1 (3.5-5.0) g/dL 04/26/22 04/26/22 Range/Units 10:23 10:23 WBC (3.8-10.6) k/uL RBC (4.30-5.90) m/uL Hgb (13.0-17.5) gm/dL Hct (39.0-53.0) % MCV (80.0-100.0) fL MCH (25.0-35.0) pg MCHC (31.0-37.0) g/dL RDW (11.5-15.5) % Plt Count (150-450) k/uL MPV Neutrophils % % Lymphocytes % % Monocytes % % Eosinophils % % Basophils % % Neutrophils # (1.3-7.7) k/uL Lymphocytes # (1.0-4.8) k/uL Monocytes # (0-1.0) k/uL Eosinophils # (0-0.7) k/uL Basophils # (0-0.2) k/uL PT (9.0-12.0) sec INR (<1.2) APTT (22.0-30.0) sec Sodium (137-145) mmol/L Potassium (3.5-5.1) mmol/L Chloride (98-107) mmol/L Carbon Dioxide (22-30) mmol/L Anion Gap mmol/L BUN (9-20) mg/dL Creatinine (0.66-1.25) mg/dL Est GFR (CKD-EPI)AfAm (>60 ml/min/1.73 sqM) Est GFR (CKD-EPI)NonAf (>60 ml/min/1.73 sqM) Glucose (74-99) mg/dL Calcium (8.4-10.2) mg/dL Magnesium (1.6-2.3) mg/dL Total Bilirubin (0.2-1.3) mg/dL AST (17-59) U/L ALT (4-49) U/L Alkaline Phosphatase (38-126) U/L Troponin I <0.012 (0.000-0.034) ng/mL NT-Pro-B Natriuret Pep 239 pg/mL Total Protein (6.3-8.2) g/dL Albumin (3.5-5.0) g/dL Disposition Clinical Impression: Chest pain Disposition: ADMITTED IP TO THIS HOSP Referrals: Wilma Escobedo MD [Primary Care Provider] - 1-2 days Time of Disposition: 11:53
[2022-04-26 10:37] LABS: Basophils # (A) 0.1 k/uL (0-0.2); Basophils % (A) 1 %; Eosinophils # (A) 0.3 k/uL (0-0.7); Eosinophils % (A) 5 %; HCT 44.6 % (39.0-53.0); HGB 15.1 gm/dL (13.0-17.5); Lymphocytes # (A) 1.4 k/uL (1.0-4.8); Lymphocytes % (A) 23 %; MCH 29.8 pg (25.0-35.0); MCHC 33.8 g/dL (31.0-37.0); MCV 88.1 fL (80.0-100.0); Mean Platelet Volume 10.2; Monocytes # (A) 0.4 k/uL (0-1.0); Monocytes % (A) 8 %; Neutrophils # (A) 3.6 k/uL (1.3-7.7); Neutrophils % (A) 61 %; Platelet Count 131 k/uL (150-450); RBC 5.06 m/uL (4.30-5.90); RDW 13.7 % (11.5-15.5); WBC 5.9 k/uL (3.8-10.6)
--- NOTE | 2022-04-26 10:42 | XR ---
EXAMINATION TYPE: XR chest 2V DATE OF EXAM: 04/26/2022 COMPARISON: 04/22/2022 HISTORY: 76-year-old male with chest pain TECHNIQUE: PA and lateral views FINDINGS: Heart is enlarged. Low lung volumes with crowded vascular markings. Increased interstitial density mi d and lower lungs similar to slightly increased. Upper lungs appear clear. No pleural effusion. Anter ior wedge deformity near the thoracolumbar junction. Fracture here at T11 was present on 2019. Wedgin g here has progressed from that time. Vertebroplasty change L1 and L2. IMPRESSION: Hypoventilatory changes. There is interstitial prominence which appears in part chronic. Correlate fo r possible bronchitis or atypical pneumonia.
[2022-04-26 10:47] LABS: INR 0.9 (<1.2); Partial Thromboplastin Time 24.9 sec (22.0-30.0); Prothrombin Time 10.4 sec (9.0-12.0)
[2022-04-26 10:49] LABS: ALT 33 U/L (4-49); AST 51 U/L (17-59); African American GFR (CKD) >90 (>60 ml/min/1.73 sqM); Albumin 4.1 g/dL (3.5-5.0); Alkaline Phosphatase 135 U/L (38-126); Anion Gap 7 mmol/L; Blood Urea Nitrogen 17 mg/dL (9-20); Calcium 9.1 mg/dL (8.4-10.2); Carbon Dioxide 25 mmol/L (22-30); Chloride 106 mmol/L (98-107); Glucose 99 mg/dL (74-99); Magnesium 1.9 mg/dL (1.6-2.3); Non-African American GFR(CKD) 87 (>60 ml/min/1.73 sqM); Sodium 138 mmol/L (137-145); Total Protein 6.7 g/dL (6.3-8.2)
[2022-04-26 10:52] LABS: Potassium 4.7 mmol/L (3.5-5.1)
[2022-04-26] MEDS ORDERED: NITROGLYCERIN SL TABS 0.4 MG TAB SUBLINGUAL PRN (11:53)
[2022-04-26] MEDS ORDERED: DOCUSATE 100 MG CAP PO PRN (13:29)
[2022-04-26] MEDS ORDERED: LACTULOSE 20 GM/30 ML CUP PO PRN (13:29)
[2022-04-26] MEDS: NITROGLYCERIN OINT 1 INCH/GM PACKET TOPICAL SCH (18:12)
[2022-04-26] MEDS: APIXABAN 5 MG TAB PO SCH (19:57)
[2022-04-26] MEDS: DONEPEZIL 5 MG TAB PO SCH (19:57)
[2022-04-26] MEDS: METOPROLOL TARTRATE 25 MG TAB PO SCH (19:58)
[2022-04-26] MEDS: ATORVASTATIN 80 MG TAB PO SCH (19:58)
[2022-04-26] MEDS: ACETAMINOPHEN TAB 325 MG TAB PO PRN (20:16)
[2022-04-27] MEDS: NITROGLYCERIN OINT 1 INCH/GM PACKET TOPICAL SCH ×4 (00:44→16:58)
--- NOTE | 2022-04-27 03:15 | CONS ---
CONSULTATION CHIEF COMPLAINT: Chest pain. HISTORY OF PRESENT ILLNESS: This is a 76-year-old gentleman with history of pulmonary embolism, on Eliquis, who presented to hospital complaining of chest pain and shortness of breath. This chest discomfort is sharp, mild intensity. He became somewhat diaphoretic, and there was some shortness of breath. Since coming to hospital, he has been doing well and does not have any other symptoms. At the time of my evaluation, he appears comfortable at rest and is free of any symptoms. EKG shows sinus rhythm, and is within normal limits. Cardiac enzymes are negative. PAST MEDICAL HISTORY: Significant for pulmonary embolism, coronary artery disease, status post angioplasty of the right coronary artery in March and dyslipidemia. MEDICATIONS: At home included, 1. Lipitor 80 daily. 2. Eliquis. 3. Plavix. 4. Aricept. 5. Lopressor. 6. Protonix. 7. . ALLERGIES: There are no known drug allergies. FAMILY HISTORY: Negative for premature coronary artery disease. SOCIAL HISTORY: Negative for current smoking, EtOH abuse or drug abuse. REVIEW OF SYSTEMS: HEENT: Unremarkable. CARDIAC: As described above. RESPIRATORY: Negative. GI: Negative. GENITOURINARY: Negative. ALLERGY/IMMUNOLOGY: Negative. SKIN: Negative. MUSCULOSKELETAL: Significant for arthritis. PSYCHOSOCIAL: Negative. DERM: Negative. CONSTITUTIONAL: Negative. ONCOLOGICAL: Negative. MELTER SUPERVISOR: Negative. PHYSICAL EXAMINATION: GENERAL: Comfortable at rest. VITAL SIGNS: Stable. NECK: There is no jugular venous distention. Carotid upstroke is normal. There is no bruit. CHEST: Reveals good air entry bilaterally. HEART: Reveals first and second heart sounds. No gallop. No murmur. No rub. ABDOMEN: Soft, nontender. EXTREMITIES: Did not reveal any edema. Peripheral pulses are felt. ASSESSMENT: 1. Precordial chest pain. 2. Coronary artery disease, status post recent angioplasty. 3. History of pulmonary embolism. PLAN: I will watch him overnight, see how his symptoms evolve. Obtain troponins regularly and decide on further course of action. MMGOERGEL / IQRAN: [id number] /
--- NOTE | 2022-04-27 04:00 | HP ---
HISTORY AND PHYSICAL CHIEF COMPLAINT: Shortness of breath and chest pain. HISTORY OF PRESENT ILLNESS: This is a 76-year-old gentleman with a past medical history of DVT and multiple other medical problems being followed by Dr. Escobedo in the outpatient setting complaining of shortness of breath as well as chest pain. The patient had CTA few days ago, which showed some subsegmental consolidation and ground-glass appearance. There is no history of fever, rigors, chills at this time. PAST MEDICAL HISTORY: Reviewed. Include recent DVT and other multiple medical issues. The rest of the history and whole chart is reviewed. HOME MEDICATIONS: Reviewed include Requip. Dose and rest of medications noted. ALLERGIES: None. FAMILY HISTORY: History of cancer. SOCIAL HISTORY: Previous smoker. REVIEW OF SYSTEM: 14-point review is negative as mentioned earlier. PHYSICAL EXAM: VITAL SIGNS: Pulse is 56, blood pressure 130/72, respiration 14. HEENT: Conjunctivae normal. NECK: No jugular venous distention. CARDIOVASCULAR: S1, S2 muffled. RESPIRATION: Scattered rhonchi. ABDOMEN: Soft, nontender. LEGS: No edema. No swelling. NERVOUS SYSTEM: No focal deficit. LABS: Noted. ASSESSMENT: 1. Chest pain, shortness of breath for evaluation, rule out coronary artery disease. 2. Rule out pulmonary embolism. 3. History of recent DVT. 4. History of GERD. 5. Multiple medical issues. RECOMMENDATION: This 76-year-old gentleman presented with multiple complex medical issues, we will monitor the patient closely. Resume the home medications including Eliquis. I would also recommend D-dimer as well as a COVID-19 testing. We will consult Cardiology. The room air pulse ox is 98%. Overall prognosis guarded. Further recommendations to follow. Repeat labs will be ordered for tomorrow. See orders for details. Home medication will be continued. MMODL / IJN: [id number] /
[2022-04-27] MEDS: NON FORMULARY DRUG (Linaclotide [Linzess] 290 MCG Capsule) PO SCH (08:16)
[2022-04-27] MEDS: CLOPIDOGREL 75 MG TAB PO SCH (08:18)
[2022-04-27] MEDS: PANTOPRAZOLE 40 MG TABLET PO SCH (08:18)
[2022-04-27] MEDS: METOPROLOL TARTRATE 25 MG TAB PO SCH ×2 (08:18→20:37)
[2022-04-27] MEDS: APIXABAN 5 MG TAB PO SCH (08:18)
[2022-04-27] MEDS: ACETAMINOPHEN TAB 325 MG TAB PO PRN (08:22)
[2022-04-27] MEDS ORDERED: ASPIRIN 325 MG TAB PO SCH (09:00)
[2022-04-27 09:55] LABS: Basophils # (A) 0.07 X 10*3/uL (0.00-0.10); Basophils % (A) 1.2 %; Eosinophils # (A) 0.32 X 10*3/uL (0.04-0.35); Eosinophils % (A) 5.5 %; HCT 41.9 % (39.6-50.0); HGB 13.6 g/dL (13.0-17.0); Immature Grans, Automated 0.5 %; Lymphocytes % (A) 32.7 %; MCHC 32.5 g/dL (32.0-37.0); MCV 86.2 fL (80.0-97.0); Mean Platelet Volume 12.1 fL (9.5-12.2); Monocytes % (A) 10.3 %; NRBC Per 100 WBC 0 /100 WBCS (0.0-0.0); Neutrophils # (A) 2.89 X 10*3/uL (1.80-7.70); Neutrophils % (A) 49.8 %; Platelet Count 150 X 10*3/uL (140-440); RBC 4.86 X 10*6/uL (4.40-5.60); RDW 14.2 % (11.5-14.5); WBC 5.81 X 10*3/uL (4.50-10.00)
[2022-04-27 10:17] LABS: African American GFR (CKD) 86.4 (60.0-200.0); BUN/Creat Ratio 16.94 Ratio (12.00-20.00); Blood Urea Nitrogen 16.7 mg/dL (9.0-27.0); Calcium 8.8 mg/dL (8.7-10.3); Carbon Dioxide 27.1 mmol/L (20.0-27.5); Chloride 106 mmol/L (96-109); Chol/HDL Ratio 3.43 Ratio; Glucose 92 mg/dL (70-110); Non-African American GFR(CKD) 74.6 (60.0-200.0); Potassium 3.9 mmol/L (3.5-5.5); Sodium 142 mmol/L (135-145)
[2022-04-27] MEDS ORDERED: HEPARIN SODIUM 1,000 UN/ML (10ML VL) IV PRN (10:30)
[2022-04-27] MEDS: HEPARIN SOD,PORK IN 0.45% NACL 25,000 UNIT in 0.45% NACL 1 250ML.BAG IV SCH (11:38)
[2022-04-27 13:43] LABS: Basophils # (A) 0.1 k/uL (0-0.2); Basophils % (A) 1 %; Eosinophils # (A) 0.3 k/uL (0-0.7); Eosinophils % (A) 6 %; HCT 44.1 % (39.0-53.0); HGB 14.4 gm/dL (13.0-17.5); Lymphocytes # (A) 1.4 k/uL (1.0-4.8); Lymphocytes % (A) 27 %; MCHC 32.6 g/dL (31.0-37.0); MCV 88.9 fL (80.0-100.0); Mean Platelet Volume 10.3; Monocytes # (A) 0.4 k/uL (0-1.0); Monocytes % (A) 8 %; Neutrophils # (A) 2.9 k/uL (1.3-7.7); Neutrophils % (A) 55 %; Platelet Count 145 k/uL (150-450); RBC 4.96 m/uL (4.30-5.90); RDW 13.8 % (11.5-15.5); WBC 5.2 k/uL (3.8-10.6)
[2022-04-27 13:56] LABS: Partial Thromboplastin Time 35.9 sec (22.0-30.0); Prothrombin Time 10.9 sec (9.0-12.0)
--- NOTE | 2022-04-27 14:32 | PN ---
PROGRESS NOTE SUBJECTIVE: This is a 76-year-old gentleman, who is admitted to hospital with chest pain. He has known coronary artery disease and underwent angioplasty of the proximal and distal right coronary artery on March 27. He is a poor historian and it is somewhat difficult to follow his symptoms, but he states that he is still having recurrent episodes of chest discomfort and nitroglycerin paste has helped him. He is on Eliquis for pulmonary embolism that was diagnosed during one of his recent admissions. I am going to hold the Eliquis tonight and tomorrow, and start him on heparin and have Dr. Marrero do a cardiac catheterization on him tomorrow to see if he has any issues in the stented segment of the right coronary artery. His cardiac enzymes have been negative, but I think patient will benefit from a cardiac catheterization given the unexplained chest pain. OBJECTIVE: VITAL SIGNS: Stable. CHEST: Reveals good air entry bilaterally. HEART: Reveals first and second heart sounds. No gallop. EXTREMITIES: Did not reveal any edema. LABS: Show a creatinine of 1. Hemoglobin is normal at 13.6. ASSESSMENT: 1. Unstable angina in a patient with recent coronary intervention. 2. History of pulmonary embolism. PLAN: We will hold the Eliquis. Start the patient on heparin. Consider cardiac catheterization. MMODL / IJN: [id number] /
[2022-04-27] MEDS: ATORVASTATIN 80 MG TAB PO SCH (20:37)
[2022-04-27] MEDS: DONEPEZIL 5 MG TAB PO SCH (20:37)
[2022-04-27 22:52] VITALS: RESP 16
[2022-04-28] MEDS: NITROGLYCERIN OINT 1 INCH/GM PACKET TOPICAL SCH ×2 (00:29→05:39)
--- NOTE | 2022-04-28 05:59 | PN ---
PROGRESS NOTE DATE OF SERVICE: 04/27/2022 SUBJECTIVE: This 76-year-old gentleman who was admitted with chest pain and some shortness of breath is being closely monitored at this time. Cardiology planning cardiac cath tomorrow. D-dimer is 2.48. PHYSICAL EXAMINATION: VITAL SIGNS: Pulse 51, blood pressure 110/69, respiration 18. CHEST: Clear to auscultation. CARDIOVASCULAR: S1, S2. ABDOMEN: Soft. NERVOUS SYSTEM: No focal deficits. LABORATORY DATA: Reviewed. ASSESSMENT: 1. Chest pain and shortness of breath, rule out coronary artery disease. 2. Rule out pulmonary embolism. 3. Elevated D-dimer. 4. History of recent deep venous thrombosis. 5. History of gastroesophageal reflux disease. 6. Multiple medical issues. RECOMMENDATIONS: I recommend to continue current medications, continue symptomatic treatment. Otherwise at this time, we will follow closely with Cardiology. Possible cardiac cath. Guarded prognosis. Further recommendations to follow. The patient is on IV heparin at this time. MMODL / IJN: [id number] /
[2022-04-28] MEDS: HEPARIN SOD,PORK IN 0.45% NACL 25,000 UNIT in 0.45% NACL 1 250ML.BAG IV SCH (07:41)
[2022-04-28 08:15] LABS: Prothrombin Time 10.6 sec (9.0-12.0)
[2022-04-28 08:24] LABS: Partial Thromboplastin Time 113.2 sec (22.0-30.0)
[2022-04-28 08:32] VITALS: BP 116/75; PULSE 63; TEMP 98
[2022-04-28] MEDS: CLOPIDOGREL 75 MG TAB PO SCH (10:11)
[2022-04-28] MEDS: PANTOPRAZOLE 40 MG TABLET PO SCH (10:11)
[2022-04-28 10:41] LABS: Basophils # (A) 0.06 X 10*3/uL (0.00-0.10); Basophils % (A) 0.9 %; Eosinophils % (A) 4.7 %; HCT 42.2 % (39.6-50.0); HGB 13.8 g/dL (13.0-17.0); Immature Grans, Automated 0.5 %; Lymphocytes # (A) 1.54 X 10*3/uL (0.90-5.00); Lymphocytes % (A) 24.3 %; MCHC 32.7 g/dL (32.0-37.0); MCV 85.6 fL (80.0-97.0); Mean Platelet Volume 11.9 fL (9.5-12.2); Monocytes % (A) 9.5 %; NRBC Per 100 WBC 0 /100 WBCS (0.0-0.0); Neutrophils # (A) 3.81 X 10*3/uL (1.80-7.70); Neutrophils % (A) 60.1 %; Platelet Count 148 X 10*3/uL (140-440); RBC 4.93 X 10*6/uL (4.40-5.60); RDW 14.2 % (11.5-14.5); WBC 6.34 X 10*3/uL (4.50-10.00)
--- NOTE | 2022-04-28 11:00 | P.PN ---
Subjective Progress Note Date: 04/28/22 HISTORY OF PRESENT ILLNESS: This is 76-year-old male who presented to the hospital with chest pain. Patient was recently admitted to the hospital and found to have a pulmonary on both him. He was started on anticoagulation in the form of liquids. The patient was examined this morning using interpretive services as the patient primarily speaks Luxembourgish. The patient denies having any chest pain or pressure. He denies any shortness of breath. He does report having some nosebleeds at home. According to his EMR he is taking Plavix and still taking 10 mg of Eliquis twice a day. Vital signs are stable. Recent echocardiogram completed revealing ejection fraction 55-60%. PHYSICAL EXAM: VITAL SIGNS: Reviewed. GENERAL: Well-developed in no acute distress. NECK: Supple. No JVD or thyromegaly LUNGS: Respirations even and unlabored. Lungs essentially clear to auscultation bilaterally. HEART: Regular rate and rhythm. S1 and S2 heard. EXTREMITIES: Normal range of motion. No clubbing or cyanosis. Peripheral pulses intact. No lower extremity edema ASSESSMENT: Chest pain Coronary artery disease with recent PCI to RCA, March 2022 Recent diagnosis of PE Hyperlipidemia PLAN: Continue current cardiac medications Decrease Eliquis to 5mg BID as patient has completed the initial 5 days of 10mg BID already secondary to recent PE Dr. Muir discussed multiple options moving forward including going home and following up with Dr. Marrero, stress test, or cardiac cath Patient requesting stress test to be performed If negative, he may be discharged home and follow up outpatient with Dr. Marrero Nurse practitioner note has been reviewed by physician. Signing provider agrees with the documented findings, assessment, and plan of care. Objective - Vital Signs Vital signs: Vital Signs Temp 98 F 04/28/22 07:00 Pulse 63 04/28/22 07:00 Resp 16 04/28/22 07:00 BP 116/75 04/28/22 07:00 Pulse Ox 95 04/28/22 08:30 FiO2 21 04/28/22 08:30 Intake & Output 04/27/22 04/28/22 04/28/22 18:59 06:59 18:59 Intake Total 559.580 88.835 82.627 Balance 559.580 88.835 82.627 Intake: Intake, IV Titration 79.580 88.835 82.627 Amount Heparin Sod,Pork in 0.45% 79.580 88.835 82.627 NaCl 25,000 unit In 0.45 % NaCl 1 250ml.bag @ 12 UNITS/KG/HR 10.07 mls/hr IV .Q24H [facility] Rx#: [id number] Oral 480 Other: # Voids 1 2 - Labs CBC & Chem 7: 04/28/22 07:07 04/27/22 05:09 Labs: Abnormal Lab Results - Last 24 Hours (Table) 04/27/22 04/27/22 04/27/22 Range/Units 13:33 13:33 17:43 Plt Count 145 L (150-450) k/uL APTT 35.9 H 37.6 H (22.0-30.0) sec 04/28/22 04/28/22 Range/Units 00:34 07:07 Plt Count (150-450) k/uL APTT 89.9 H 113.2 H* (22.0-30.0) sec
[2022-04-28] MEDS: NON FORMULARY DRUG (Linaclotide [Linzess] 290 MCG Capsule) PO SCH (11:12)
--- NOTE | 2022-04-28 11:47 | CA ---
Stress Echo Report Paco Jacobo Age: 76 Gender: M : 1945 Exam Date: 04/28/2022 10:36 Exam Location: [facility] Ht (in): 69 Wt (lb): 185 Ordering Physician: Yvette Espino Referring Physician: [id number] [employer] Music Teacher: Shellie Mason RDCS Technologist Procedure CPT: Indication: CP ICD-9 Codes: Rhythm: Patient History: CHEST PAIN, DIFFICULTY IN BREATHING, PALPITATIONS, ELEVATED CHOLESTEROL Cardiac Medications: Medications in past 24 hours: Contrast: Stress Results Protocol: Alejandro Total dose(mL): Exercise Duration (min:sec): Max ST Depression (mm): Angina Score: Coleman Score: METS: 7.0 Resting HR: 119 Resting BP: 87 / 56 Peak HR: 118 Peak BP: 234 / 76 Max Predicted HR: 145 81 % Max Predicted HR Target HR: 123 Double Product: [id number] Stress Summary: BP Response: Reason for Termination: MAX EXERTION,Fatigue Cardiac Symptoms: NO SYMPTOMS ECG Analysis Resting ECG: Stress ECG: Arrhythmia: Echo Analysis Resting Echo: Peak Echo Analysis: MEASUREMENTS (Male/Female) Normal Values CONCLUSIONS Patient underwent exercise stress echo with a Alejandro protocol treadmill stress test. Patient exercised into Stage 2 for a total of 5 minutes and 11 seconds reaching a total of 7.0 METS. Patient's maximum heart rate was 118 which represented 81 % age- predicted maximum heart rate. There was no chest pain or pressure noted with exertion and only fatigue. Stress EKG portion: At baseline patient's EKG showed normal sinus rhythm, normal axis, no significant ST or T wave abnormalities. At peak exercise, EKG showed no significant change from baseline. Stress echo portion: 2-D echocardiogram was performed in the parasternal long, personal short, apical 2 and apical four-chamber views at rest, peak exercise and in recovery. At baseline, echocardiogram showed left ventricular ejection fraction 55 % without wall motion abnormalities. With peak exercise, echocardiogram shows improvement in left ventricular ejection fraction, increase contractility, decrease in left ventricular end systolic dimension without wall motion abnormalities consistent with a normal response to exercise. Conclusions: 1. Technically nondiagnostic stress echo secondary to inability to reach 85% maximum predicted heart rate. 2. However at 81% maximum predicted heart rate, normal EKG and echo response to exercise without evidence of inducible ischemia. 3. Fair exercise capacity. Dr. Christ Muir DO (Electronically Signed) Final Date: 28 April 2022 11:46
[2022-04-28] MEDS: METOPROLOL TARTRATE 25 MG TAB PO SCH (14:07)
[2022-04-28] MEDS ORDERED: APIXABAN 5 MG TAB PO SCH (21:00)
[2022-04-29] MEDS ORDERED: APIXABAN 5 MG TAB PO SCH ×2 (09:00→21:00)
[2022-05-01] MEDS ORDERED: APIXABAN 5 MG TAB PO SCH (21:00)
[2022-05-04] MEDS ORDERED: APIXABAN 5 MG TAB PO SCH (09:00)
== END 2022-04-28 14:28 | disposition home or self-care (01) ==
LOC: EC 09:41 → 6NMEDSUR 11:53 → EEVIPCON 11:53 → 6NMEDSUR 12:03
PROVIDERS: ADMIT Internal Medicine; ATTEND Internal Medicine
DX: I25.110 Atherosclerotic heart disease of native coronary artery with unstable angina pectoris (principal); R79.89 Other specified abnormal findings of blood chemistry; I25.10 Atherosclerotic heart disease of native coronary artery without angina pectoris; K21.9 Gastro-esophageal reflux disease without esophagitis; E78.5 Hyperlipidemia, unspecified; Z86.711 Personal history of pulmonary embolism; Z86.718 Personal history of other venous thrombosis and embolism; Z87.891 Personal history of nicotine dependence; Z98.61 Coronary angioplasty status; Z79.01 Long term (current) use of anticoagulants; Z79.02 Long term (current) use of antithrombotics/antiplatelets; Z79.899 Other long term (current) drug therapy; Z20.822 Contact with and (suspected) exposure to COVID-19
CPT/HCPCS: 96365; 96366 ×2; 99285; 36415; 94760; 93005; 93351; 85379; 83880; 80061; 80053; 80048; 83735; 84484; 85025 ×3; 85610 ×3; 85730 ×3; 87635; 71046; G0378 ×3; J1644 ×2

== ENCOUNTER 2022-05-13 20:04 | Emergency (ER) | payer MEDICARE, OTHER ==
[2022-05-13 20:44] VITALS: TEMP 98.4
[2022-05-13] MEDS ORDERED: SODIUM CHLORIDE 0.9% 1,000 ML IV STA (21:37)
--- NOTE | 2022-05-13 21:38 | ED ---
Neuro HPI - General Chief Complaint: Neuro Symptoms/Deficit Stated Complaint: L leg pain Time Seen by Provider: 05/13/22 21:36 Source: patient, RN notes reviewed, old records reviewed Mode of arrival: ambulatory Limitations: language barrier - History of Present Illness Is the patient presenting with stroke symptoms?: Yes -: unknown Initial Comments: This is a 76-year-old male DF for evaluation patient is a poor historian secondary to inability to speaking this. Patient well really not feeling well per family member at bedside other Medication is difficult secondary to language. Location: left leg History of same: No Place: home Severity: moderate Quality: weak, numb, tingling Improves With: none On Anticoagulants: No Associated Symptoms: other (blurry vision) Treatments Prior to Arrival: none - Related Data Home Medications: Home Medications Medication Instructions Recorded Confirmed Docusate Sodium [Dok] 100 mg PO DAILY PRN 12/20/19 04/26/22 Pantoprazole [Protonix] 40 mg PO DAILY 02/28/21 04/26/22 Donepezil [Aricept] 5 mg PO HS 03/27/22 04/26/22 Lactulose [Constulose] 10 gm PO DAILY PRN 04/22/22 04/26/22 Linaclotide [Linzess] 290 mcg PO DAILY 04/22/22 04/26/22 rOPINIRole HCL [Requip] 2 mg PO DAILY 04/22/22 04/26/22 Nitroglycerin Sl Tabs [Nitrostat] 0.4 mg SL Q5M PRN 04/26/22 04/26/22 Previous Rx's Medication Instructions Recorded Atorvastatin [Lipitor] 80 mg PO HS #90 tab 03/28/22 Clopidogrel [Plavix] 75 mg PO DAILY #90 tab 03/28/22 Metoprolol Tartrate [Lopressor] 25 mg PO BID #180 tab 03/28/22 Apixaban [Eliquis] 5 mg PO BID tab 04/28/22 Allergies/Adverse Reactions: Allergies Allergy/AdvReac Type Severity Reaction Status Date / Time No Known Allergies Allergy Verified 05/13/22 20:25 Review of Systems ROS Statement: Those systems with pertinent positive or pertinent negative responses have been documented in the HPI. ROS Other: All systems not noted in ROS Statement are negative. General Exam - General Exam Comments Initial Comments: NIH of 0 Limitations: language barrier General appearance: alert, in no apparent distress Head exam: Present: atraumatic, normocephalic, normal inspection Eye exam: Present: normal appearance, PERRL, EOMI. Absent: scleral icterus, conjunctival injection, periorbital swelling ENT exam: Present: normal exam, mucous membranes moist Neck exam: Present: normal inspection. Absent: tenderness, meningismus, lymphadenopathy Respiratory exam: Present: normal lung sounds bilaterally. Absent: respiratory distress, wheezes, rales, rhonchi, stridor Cardiovascular Exam: Present: regular rate, normal rhythm, normal heart sounds. Absent: systolic murmur, diastolic murmur, rubs, gallop, clicks GI/Abdominal exam: Present: soft, normal bowel sounds. Absent: distended, tenderness, guarding, rebound, rigid Extremities exam: Present: normal inspection, full ROM, normal capillary refill. Absent: tenderness, pedal edema, joint swelling, calf tenderness Back exam: Present: normal inspection Neurological exam: Present: alert, oriented X3, CN II-XII intact Psychiatric exam: Present: normal affect, normal mood Skin exam: Present: warm, dry, intact, normal color. Absent: rash Stroke MDM - Lab Data Result diagrams: 05/13/22 20:56 05/13/22 20:56 Lab Results 05/13/22 05/13/22 05/13/22 Range/Units 20:56 20:56 20:56 WBC 5.6 (3.8-10.6) k/uL RBC 4.96 (4.30-5.90) m/uL Hgb 14.3 (13.0-17.5) gm/dL Hct 44.0 (39.0-53.0) % MCV 88.6 (80.0-100.0) fL MCH 28.8 (25.0-35.0) pg MCHC 32.5 (31.0-37.0) g/dL RDW 13.6 (11.5-15.5) % Plt Count 141 L (150-450) k/uL MPV 10.3 Neutrophils % 55 % Lymphocytes % 30 % Monocytes % 7 % Eosinophils % 4 % Basophils % 2 % Neutrophils # 3.1 (1.3-7.7) k/uL Lymphocytes # 1.7 (1.0-4.8) k/uL Monocytes # 0.4 (0-1.0) k/uL Eosinophils # 0.2 (0-0.7) k/uL Basophils # 0.1 (0-0.2) k/uL Hypochromasia Slight PT 9.9 (9.0-12.0) sec INR 0.9 (<1.2) APTT 24.3 (22.0-30.0) sec Sodium 139 (137-145) mmol/L Potassium 4.5 (3.5-5.1) mmol/L Chloride 106 (98-107) mmol/L Carbon Dioxide 26 (22-30) mmol/L Anion Gap 7 mmol/L BUN 15 (9-20) mg/dL Creatinine 0.95 (0.66-1.25) mg/dL Est GFR (CKD-EPI)AfAm >90 (>60 ml/min/1.73 sqM) Est GFR (CKD-EPI)NonAf 78 (>60 ml/min/1.73 sqM) Glucose 89 (74-99) mg/dL Calcium 8.9 (8.4-10.2) mg/dL Total Bilirubin 0.7 (0.2-1.3) mg/dL AST 33 (17-59) U/L ALT 33 (4-49) U/L Alkaline Phosphatase 130 H (38-126) U/L Troponin I (0.000-0.034) ng/mL Total Protein 6.7 (6.3-8.2) g/dL Albumin 4.0 (3.5-5.0) g/dL Urine Color Urine Appearance (Clear) Urine pH (5.0-8.0) Ur Specific [place] (1.001-1.035) Urine Protein (Negative) Urine Glucose (UA) (Negative) Urine Ketones (Negative) Urine Blood (Negative) Urine Nitrite (Negative) Urine Bilirubin (Negative) Urine Urobilinogen (<2.0) mg/dL Ur Leukocyte Esterase (Negative) 05/13/22 05/13/22 Range/Units 20:56 21:07 WBC (3.8-10.6) k/uL RBC (4.30-5.90) m/uL Hgb (13.0-17.5) gm/dL Hct (39.0-53.0) % MCV (80.0-100.0) fL MCH (25.0-35.0) pg MCHC (31.0-37.0) g/dL RDW (11.5-15.5) % Plt Count (150-450) k/uL MPV Neutrophils % % Lymphocytes % % Monocytes % % Eosinophils % % Basophils % % Neutrophils # (1.3-7.7) k/uL Lymphocytes # (1.0-4.8) k/uL Monocytes # (0-1.0) k/uL Eosinophils # (0-0.7) k/uL Basophils # (0-0.2) k/uL Hypochromasia PT (9.0-12.0) sec INR (<1.2) APTT (22.0-30.0) sec Sodium (137-145) mmol/L Potassium (3.5-5.1) mmol/L Chloride (98-107) mmol/L Carbon Dioxide (22-30) mmol/L Anion Gap mmol/L BUN (9-20) mg/dL Creatinine (0.66-1.25) mg/dL Est GFR (CKD-EPI)AfAm (>60 ml/min/1.73 sqM) Est GFR (CKD-EPI)NonAf (>60 ml/min/1.73 sqM) Glucose (74-99) mg/dL Calcium (8.4-10.2) mg/dL Total Bilirubin (0.2-1.3) mg/dL AST (17-59) U/L ALT (4-49) U/L Alkaline Phosphatase (38-126) U/L Troponin I <0.012 (0.000-0.034) ng/mL Total Protein (6.3-8.2) g/dL Albumin (3.5-5.0) g/dL Urine Color Light Yellow Urine Appearance Clear (Clear) Urine pH 5.0 (5.0-8.0) Ur Specific [place] 1.011 (1.001-1.035) Urine Protein Negative (Negative) Urine Glucose (UA) Negative (Negative) Urine Ketones Negative (Negative) Urine Blood Negative (Negative) Urine Nitrite Negative (Negative) Urine Bilirubin Negative (Negative) Urine Urobilinogen <2.0 (<2.0) mg/dL Ur Leukocyte Esterase Negative (Negative) - NIH Stroke Scale 1b. LOC Questions: (0) answers correctly 1c. LOC Commands: (0) performs tasks correctly 2. Best Gaze: (0) normal 3. Visual: (0) no visual loss 4. Facial Palsy: (0) normal symmetrical movement 5b. Motor Arm Right: (0) no drift 6a. Motor Leg Left: (0) no drift 6b. Motor Leg Right: (0) no drift 7. Limb Ataxia: (0) absent 8. Sensory: (0) normal 9. Best Language: (0) no aphasia 10. Dysarthria: (0) normal 11. Extinction/Inattention: (0) no abnormality - Thrombolytic Inclusion/Exclusion Thrombolytic Exclusion Criteria: Onset of Symptoms Unknown - Medical Decision Making 76 male DF for evaluation of leg numbness and tingling. Patient states he has some difficulty moving right leg does symptoms are resolved. 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"-told on previous EKG his diaghragm "was not healthy", constipation, "when I eat greasy,fatty or fried food it hard to digest it", feels heavy feeling after eating, History of Any Multi-Drug Resistant Organisms: None Reported Past Surgical History: Hernia Repair, Prostate Surgery Additional Past Surgical History / Comment(s): rectal fistula surgery, keegan cataract surgery Past Anesthesia/Blood Transfusion Reactions: No Reported Reaction Past Psychological History: No Psychological Hx Reported Smoking Status: Former smoker Past Alcohol Use History: None Reported Past Drug Use History: None Reported - Past Family History Mother Family Medical History: Cancer Course Vital Signs 05/13/22 05/13/22 05/13/22 20:06 20:43 22:31 Temperature 98.2 F 98.4 F Pulse Rate 60 62 55 L Respiratory 20 16 18 Rate Blood Pressure 110/69 110/74 100/65 O2 Sat by Pulse 97 98 98 Oximetry 05/13/22 05/14/22 22:57 00:29 Temperature Pulse Rate 70 57 L Respiratory 18 17 Rate Blood Pressure 105/65 112/75 O2 Sat by Pulse 94 L 97 Oximetry - Reevaluation(s) Reevaluation #1: 05/14/22 00:37 Medical record is reviewed Reevaluation #2: 05/14/22 00:37 Patient family informed of results questions answered Reevaluation #3: 05/14/22 00:37 Patient states who has no complaints prefers discharge Disposition Clinical Impression: Transient cerebral ischemia Disposition: HOME SELF-CARE Condition: Good Instructions (If sedation given, give patient instructions): Transient Ischemic Attack (ED) Is patient prescribed a controlled substance at d/c from ED?: No Referrals: Wilma Escobedo MD [Primary Care Provider] - 1-2 days Time of Disposition: 00:30
[2022-05-13 22:00] LABS: Basophils # (A) 0.1 k/uL (0-0.2); Basophils % (A) 2 %; Eosinophils # (A) 0.2 k/uL (0-0.7); Eosinophils % (A) 4 %; HGB 14.3 gm/dL (13.0-17.5); Hypochromasia Slight; Lymphocytes # (A) 1.7 k/uL (1.0-4.8); Lymphocytes % (A) 30 %; MCH 28.8 pg (25.0-35.0); MCHC 32.5 g/dL (31.0-37.0); MCV 88.6 fL (80.0-100.0); Mean Platelet Volume 10.3; Monocytes # (A) 0.4 k/uL (0-1.0); Monocytes % (A) 7 %; Neutrophils # (A) 3.1 k/uL (1.3-7.7); Neutrophils % (A) 55 %; Platelet Count 141 k/uL (150-450); RBC 4.96 m/uL (4.30-5.90); RDW 13.6 % (11.5-15.5); WBC 5.6 k/uL (3.8-10.6)
[2022-05-13 22:07] LABS: Appearance,Urine Clear (Clear); Bilirubin,Urine Negative (Negative); Blood,Urine Negative (Negative); Color,Urine Light Yellow; Glucose,Urine (UA) Negative (Negative); Ketones,Urine Negative (Negative); Leukocyte Esterase,Urine Negative (Negative); Nitrite,Urine Negative (Negative); Protein,Urine Negative (Negative); Specific Gravity,Urine 1.011 (1.001-1.035); Urobilinogen,Urine <2.0 mg/dL (<2.0)
[2022-05-13 22:17] LABS: INR 0.9 (<1.2)
--- NOTE | 2022-05-13 22:17 | CT ---
EXAMINATION TYPE: CT brain wo con for TPA DATE OF EXAM: 05/13/2022 COMPARISON: None HISTORY: Neuro deficit CT DLP: 1196.8 mGycm Automated exposure control for dose reduction was used. There is some cerebral cortical atrophy. There is no mass effect or midline shift. No sign of intracr anial hemorrhage. Calvarium is intact there is normal aeration of the mastoid sinuses. IMPRESSION: Cerebral atrophy. No acute intracranial abnormality.
[2022-05-13 22:18] LABS: Partial Thromboplastin Time 24.3 sec (22.0-30.0); Prothrombin Time 9.9 sec (9.0-12.0)
[2022-05-13 22:27] LABS: ALT 33 U/L (4-49); AST 33 U/L (17-59); African American GFR (CKD) >90 (>60 ml/min/1.73 sqM); Alkaline Phosphatase 130 U/L (38-126); Anion Gap 7 mmol/L; Blood Urea Nitrogen 15 mg/dL (9-20); Calcium 8.9 mg/dL (8.4-10.2); Carbon Dioxide 26 mmol/L (22-30); Chloride 106 mmol/L (98-107); Glucose 89 mg/dL (74-99); Non-African American GFR(CKD) 78 (>60 ml/min/1.73 sqM); Potassium 4.5 mmol/L (3.5-5.1); Sodium 139 mmol/L (137-145); Total Bilirubin 0.7 mg/dL (0.2-1.3); Total Protein 6.7 g/dL (6.3-8.2)
--- NOTE | 2022-05-13 23:07 | CT ---
EXAMINATION TYPE: CT angio head neck DATE OF EXAM: 05/13/2022 COMPARISON: None HISTORY: Neuro deficit CT DLP: 1671.4 mGycm Automated exposure control for dose reduction was used. CONTRAST: Performed with IV Contrast, patient injected with 65ml mL of Isovue 370. Images obtained from the aortic arch to the vertex of the brain with the IV contrast. There is 3-D po st processed images. Aortic arch is intact. There is arterial flow in both subclavian arteries. There is normal branching pattern of the great vessels on the aortic arch. There is arterial flow in the common internal and external carotid arteries bilaterally. There is varun rly wide patency of the carotid artery bifurcations. There is some ectasia of the parotid artery bifu rcations. No dissection. There is arterial flow in both vertebral arteries. There is arterial flow in the vertebral basilar artery system. No evidence of carotid or vertebral artery dissection. There is arterial flow in the anterior middle and posterior cerebral arteries bilaterally. No mass ef fect. No evidence of intracranial aneurysm or neovascularity. There is mucosal thickening in the ethm oid air cells. There is normal enhancement of the venous sinuses. No evidence of intracranial hemodyn amic arterial stenosis. IMPRESSION: There is some ectasia at the carotid artery bifurcations. No evidence of any significant angiographic abnormality in the brain. No carotid artery stenosis.
--- NOTE | 2022-05-13 23:10 | XR ---
EXAMINATION TYPE: XR chest 1V DATE OF EXAM: 05/13/2022 COMPARISON: 04/26/2022 HISTORY: Chest pain TECHNIQUE: FINDINGS: There is no heart failure nor confluent pneumonic infiltrate. Costophrenic angles are clear . There are no hilar masses. Bony thorax is intact. There is an increased density behind the heart co nsistent with hiatal hernia. IMPRESSION: No active cardiopulmonary disease. No change.
[2022-05-14 00:30] VITALS: BP 112/75; PULSE 57; RESP 17
== END 2022-05-14 00:43 | disposition home or self-care (01) ==
LOC: EC 20:04
DX: G45.9 Transient cerebral ischemic attack, unspecified (principal); K21.9 Gastro-esophageal reflux disease without esophagitis; Z79.899 Other long term (current) drug therapy; Z87.891 Personal history of nicotine dependence
CPT/HCPCS: 36415; 93005; 80053; 84484; 85025; 85610; 85730; 81003; 71045; 70496; 70450; 70498; 99285; 96360; 96361; Q9967

== ENCOUNTER → 2022-05-21 | Outpatient (CLI) | payer MEDICARE, OTHER ==
[2022-05-21 14:43] LABS: Chol/HDL Ratio 2.86 Ratio; LDL Cholesterol,Calculated 81.5 mg/dL (0.0-131.0); VLDL Calculation 12.16 mg/dL (5.00-40.00)
[2022-05-22 01:09] LABS: ALT 29 U/L (10-49); AST 22 U/L (14-35); African American GFR (CKD) 89.8 (60.0-200.0); Albumin 4.2 g/dL (3.8-4.9); Alkaline Phosphatase 129 U/L (41-126); Blood Urea Nitrogen 19.1 mg/dL (9.0-27.0); Calcium 9.3 mg/dL (8.7-10.3); Carbon Dioxide 24.6 mmol/L (20.0-27.5); Chloride 105 mmol/L (96-109); Globulin 2.2 g/dL (1.6-3.3); Glucose 126 mg/dL (70-110); Non-African American GFR(CKD) 77.5 (60.0-200.0); Potassium 4.5 mmol/L (3.5-5.5); Sodium 140 mmol/L (135-145); Total Protein 6.4 g/dL (6.2-8.2)
== END | disposition home or self-care (01) ==
LOC: LABWHC1 09:07
PROVIDERS: ATTEND Internal Medicine Interventional Cardiology
DX: E78.2 Mixed hyperlipidemia (principal)
CPT/HCPCS: 36415; 80053; 80061

== ENCOUNTER → 2022-12-15 | Outpatient (CLI) | payer MEDICARE, OTHER ==
[~2022-12-15] MED LIST changes: -ALPRAZolam 0.25 MG TAB PO PRN; -ALPRAZolam 0.5 MG TAB PO PRN; -ASPIRIN 325 MG TAB PO STA; -ATORVASTATIN 80 MG TAB PO STA; +DENOSUMAB 60 MG/ML 1 ML SYRINGE SQ NR; -HEPARIN SODIUM,PORCINE 10,000 UNIT in SODIUM CHLORIDE 0.9% 1,000 ML IRRIGATION PRN; -HEPARIN SODIUM,PORCINE 2,500 UNIT in SODIUM CHLORIDE 0.9% 250 ML IRRIGATION PRN; -NITROGLYCERIN SL TABS 0.4 MG TAB SUBLINGUAL PRN; -SODIUM CHLORIDE 0.9% 1,000 ML in EMPTY BAG 1 BAG IV SCH
[2022-12-15 13:31] VITALS: BP 128/77; PULSE 60; RESP 16; TEMP 97.6
== END ==
LOC: PROCWHC3 12:35
PROVIDERS: ATTEND Internal Medicine
DX: M81.0 Age-related osteoporosis without current pathological fracture (principal)
CPT/HCPCS: 96372; J0897

== ENCOUNTER → 2022-12-15 | Outpatient (CLI) | payer MEDICARE, OTHER ==
[2022-12-15 16:07] LABS: ALT 27 U/L (10-49); AST 27 U/L (14-35); Albumin 3.9 d/dL (3.8-4.9); Albumin/Globulin Ratio 1.86 Ratio (1.60-3.17); Alkaline Phosphatase 129 U/L (41-126); Blood Urea Nitrogen 13.6 mg/dL (9.0-27.0); Carbon Dioxide 26.1 mmol/L (21.6-31.8); Chloride 107 mmol/L (96-109); Chol/HDL Ratio 2.58 Ratio; Globulin 2.1 d/dL (1.6-3.3); Glucose 93 mg/dL (70-110); LDL Cholesterol,Calculated 47.7 mg/dL (0.0-131.0); Potassium 4.4 mmol/L (3.5-5.5); Sodium 142 mmol/L (135-145); Total Bilirubin 0.7 mg/dL (0.3-1.2); VLDL Calculation 15.26 mg/dL (5.00-40.00)
== END | disposition home or self-care (01) ==
LOC: LABWHC1 10:52
PROVIDERS: ATTEND Internal Medicine Interventional Cardiology
DX: E78.2 Mixed hyperlipidemia (principal)
CPT/HCPCS: 36415; 80053; 80061

== ENCOUNTER → 2023-03-26 | Outpatient (CLI) | payer MEDICARE, OTHER ==
--- NOTE | 2023-03-26 14:38 | BD ---
EXAMINATION TYPE: Axial Bone Density DATE OF EXAM: 03/26/2023 CLINICAL HISTORY: 77 years old Male. 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 Family History (Parent hip fracture): yes History of Fracture in Adulthood: yes NO ORDER, NO HX, SPEAKS NO SYRIAC, BEST POSSIBLE HX Current Tobacco Use: yes RISK FACTORS HISTORY OF: Spine Fracture: l/s with 3 sets of hardware, as an adult. History of Wrist Fracture: both wrists and forearms. Surgery to Spine l/s with 3 sets of hardware no accurate history, speaks no Bol[place]ian Family History of Osteoporosis: yes Lost more than 2 inches in height since high school: yes elderly Hyperparathyroidism: no? Adrenal Insufficiency: no? MEDICATIONS: Additional Medications: bp meds, calcium, vit d, cholesterol meds, heartburn meds, Additional History: hypertension, cholesterol, heartburn, multiple fractures, EXAM MEASUREMENTS: Bone mineral densitometry was performed using the [employer] System. SURGICAL REPAIR OF LUMBAR SPINE. Bone mineral density about the R hip (g/cm2): 0.886 Bone mineral density about the L hip (g/cm2): 0.915 T Score values are as follows: -----R Neck: -0.9 -----L Neck: -0.5 -----R Total: -1.0 -----L Total: -0.7 Z Score values are as follows: no -score given.....aged matched un available per scan. Bone mineral density is his first bone density at [facility]. FRAX%s: The graph provided illustrates a 5.2% chance for a major osteoporotic fx and a 3.2% chance fo r the hips probability for fx in 10 years time. IMPRESSION: Normal (Values between +1 and -1 indicate normal bone mass). Consider repeating this study in 5 year s or sooner if there is some new clinical indication. NOTE: T-SCORE=SD OF THE YOUNG ADULT MEAN.
== END | disposition home or self-care (01) ==
LOC: RADBDWWP 10:08
PROVIDERS: ATTEND Internal Medicine
DX: M81.0 Age-related osteoporosis without current pathological fracture (principal)
CPT/HCPCS: 77080

== ENCOUNTER → 2023-08-31 | Outpatient (CLI) | payer MEDICARE, OTHER ==
[2023-08-31 18:44] LABS: ALT 27 U/L (10-49); AST 25 U/L (14-35); Chol/HDL Ratio 3.26 Ratio; LDL Cholesterol,Calculated 69.3 mg/dL (0.0-131.0)
== END | disposition home or self-care (01) ==
LOC: LABWHC1 08:56
PROVIDERS: ATTEND Internal Medicine Interventional Cardiology
DX: E78.2 Mixed hyperlipidemia (principal)
CPT/HCPCS: 36415; 80061; 84450; 84460

== ENCOUNTER 2023-10-08 16:55 | Emergency (ER) | payer MEDICARE, OTHER ==
--- NOTE | 2023-10-08 18:01 | ED ---
Back Pain HPI - General Chief Complaint: Back Pain/Injury Stated Complaint: Back pain Time Seen by Provider: 10/08/23 17:33 Source: patient, RN notes reviewed, old records reviewed Mode of arrival: ambulatory Limitations: no limitations, language barrier - History of Present Illness Initial Comments: 78-year-old male to the emergency room today for evaluation of severe back pain chronic back pain history of chronic back trauma no fevers no neurological complaints here in the ER note MD Complaint: back pain -: year(s) Place: home Radiation: none Severity: severe Severity scale (1-10): 10 Consistency: constant Improves With: none - Related Data Home Medications Medication Instructions Recorded Confirmed Docusate Sodium [Dok] 100 mg PO DAILY PRN 12/20/19 02/13/23 Pantoprazole [Protonix] 40 mg PO DAILY 02/28/21 02/13/23 Donepezil [Aricept] 5 mg PO HS 03/27/22 02/13/23 Lactulose [Constulose] 10 gm PO DAILY PRN 04/22/22 02/13/23 Linaclotide [Linzess] 290 mcg PO DAILY 04/22/22 02/13/23 Nitroglycerin Sl Tabs [Nitrostat] 0.4 mg SL Q5M PRN 04/26/22 02/13/23 Famotidine [Pepcid] 20 mg PO DAILY 02/13/23 02/13/23 Ferrous Sulfate [Iron (65 MG 325 mg PO DAILY 02/13/23 02/13/23 Elemental)] Ipratropium [place] 0.06%Nasal 2 spr EA NOSTRIL TID 02/13/23 02/13/23 [Atrovent Nasal 0.06%] Pramipexole [Mirapex] 1 mg PO HS 02/13/23 02/13/23 Previous Rx's Medication Instructions Recorded Atorvastatin [Lipitor] 80 mg PO HS #90 tab 03/28/22 Clopidogrel [Plavix] 75 mg PO DAILY #90 tab 03/28/22 Metoprolol Tartrate [Lopressor] 25 mg PO BID #180 tab 03/28/22 Apixaban [Eliquis] 5 mg PO BID tab 04/28/22 Allergies Allergy/AdvReac Type Severity Reaction Status Date / Time No Known Allergies Allergy Verified 02/12/23 23:03 Review of Systems ROS Statement: Those systems with pertinent positive or pertinent negative responses have been documented in the HPI. ROS Other: All systems not noted in ROS Statement are negative. 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"-told on previous EKG his diaghragm "was not healthy", constipation, "when I eat greasy,fatty or fried food it hard to digest it", feels heavy feeling after eating, History of Any Multi-Drug Resistant Organisms: None Reported Past Surgical History: Hernia Repair, Prostate Surgery Additional Past Surgical History / Comment(s): rectal fistula surgery, keegan cataract surgery Past Anesthesia/Blood Transfusion Reactions: No Reported Reaction Past Psychological History: No Psychological Hx Reported Smoking Status: Never smoker Past Alcohol Use History: None Reported Past Drug Use History: None Reported - Past Family History Mother Family Medical History: Cancer General Exam Limitations: no limitations General appearance: alert, in no apparent distress Head exam: Present: atraumatic, normocephalic, normal inspection Eye exam: Present: normal appearance, PERRL, EOMI. Absent: scleral icterus, conjunctival injection, periorbital swelling ENT exam: Present: normal exam, mucous membranes moist Neck exam: Present: normal inspection. Absent: tenderness, meningismus, lymphadenopathy Respiratory exam: Present: normal lung sounds bilaterally. Absent: respiratory distress, wheezes, rales, rhonchi, stridor Cardiovascular Exam: Present: regular rate, normal rhythm, normal heart sounds. Absent: systolic murmur, diastolic murmur, rubs, gallop, clicks GI/Abdominal exam: Present: soft, normal bowel sounds. Absent: distended, tenderness, guarding, rebound, rigid Extremities exam: Present: normal inspection, full ROM, normal capillary refill. Absent: tenderness, pedal edema, joint swelling, calf tenderness Back exam: Present: normal inspection Neurological exam: Present: alert, oriented X3, CN II-XII intact Psychiatric exam: Present: normal affect, normal mood Skin exam: Present: warm, dry, intact, normal color. Absent: rash Course Vital Signs 10/08/23 10/08/23 17:01 18:51 Temperature 97.8 F 97.9 F Pulse Rate 65 68 Respiratory 20 18 Rate Blood Pressure 154/77 147/80 O2 Sat by Pulse 99 99 Oximetry - Reevaluation(s) Reevaluation #1: Medical records reviewed Reevaluation #2: Symptoms unchanged Reevaluation #3: Patient informed of results and questions answered Reevaluation #4: Was pt. sent in by a medical professional or institution (, [facility], [facility], urgent care, hospital, or long-term...) When possible be specific @ -no Did you speak to anyone other than the patient for history (EMS, parent, family, police, friend...)? What history was obtained from this source @ -no Did you review nursing and triage notes (agree or disagree)? Why? @ -agree Are old charts reviewed (outside hosp., previous admission, EMS record, old EKG, old radiological studies, urgent care reports/EKG's, long-term records)? Report findings @ -yes Differential Diagnosis (chest pain, altered mental status, abdominal pain women, abdominal pain men, vaginal bleeding, weakness, fever, dyspnea, syncope, headache, dizziness, GI bleed, back pain, seizure, CVA, palpatations, mental health, musculoskeletal)? @ -prior EKG interpreted by me (3pts min.). @ -no X-rays interpreted by me (1pt min.). @ -no CT interpreted by me (1pt min.). @ -no U/S interpreted by me (1pt. min.). @ -no What testing was considered but not performed or refused? (CT, X-rays, U/S, labs)? Why? @ -none What meds were considered but not given or refused? Why? @ -none Did you discuss the management of the patient with other professionals (professionals i.e. , [facility], [facility], lab, RT, psych nurse, elementary school social worker, pearl maker, teacher, correctional officer lieutenant, caser)? Give summary @ -no Was smoking cessation discussed for >3mins.? @ -no Was critical care preformed (if so, how long)? @ -no Were there social determinants of health that impacted care today? How? (Homelessness, low income, unemployed, alcoholism, drug addiction, transportation, low edu. Level, literacy, decrease access to med. care, retirement, rehab)? @ -none Was there de-escalation of care discussed even if they declined (Discuss DNR or withdrawal of care, Hospice)? DNR status @ -no What co-morbidities impacted this encounter? (DM, HTN, Smoking, COPD, CAD, Cancer, CVA, ARF, Chemo, Hep., AIDS, mental health diagnosis, sleep apnea, morbid obesity)? @ -none Was patient admitted / discharged? Hospital course, mention meds given and route, prescriptions, significant lab abnormalities, going to OR and other pertinent info. @ - 78 male to ER for evaluation of severe back pain history of severe back pain patient has pain control here in the ER and can be discharged home Discharge Undiagnosed new problem with uncertain prognosis? @ -no Drug Therapy requiring intensive monitoring for toxicity (Heparin, Nitro, Insulin, Cardizem)? @ -no Were any procedures done? @ -no Diagnosis/symptom? @ -Chronic back pain Acute, or Chronic, or Acute on Chronic? @ -Acute Uncomplicated (without systemic symptoms) or Complicated (systemic symptoms)? @ -Complicated Side effects of treatment? @ -no Exacerbation, Progression, or Severe Exacerbation? @ -exacerbation Poses a threat to life or bodily function? How? (Chest pain, [place], [place], pneumonia, PE, COPD, DKA, ARF, appy, cholecystitis, CVA, Diverticulitis, Homicidal, Suicidal, threat to staff... and all critical care pts) @ -yes extremes of age Reevaluation #5: Differential Back Pain: Strain, zoster, cauda equina syndrome, epidural abscess, vertebral osteomyelitis, discitis, fracture, subluxation, disc herniation, DJD, spinal stenosis, dissection, AAA, pancreatitis, peptic ulcer disease, pyelonephritis, kidney stone, this is not meant to be an all-inclusive list. Medical Decision Making - Medical Decision Making 78 male to ER for evaluation of severe back pain history of severe back pain p atient has pain control here in the ER and can be discharged home Disposition Clinical Impression: Strain of lumbar region, Mechanical back pain, Mid back pain Disposition: HOME SELF-CARE Condition: Good Instructions (If sedation given, give patient instructions): Acute Low Back P ain (ED) Is patient prescribed a controlled substance at d/c from ED?: No Referrals: None,Stated [Primary Care Provider] - 1-2 days Time of Disposition: 18:00
[2023-10-08] MEDS: HYDROmorphone 1 MG/ML 1 ML SYRINGE IM STA (18:27)
[2023-10-08] MEDS: ETODOLAC 400 MG TAB PO ONE (18:30)
[2023-10-08] MEDS: LIDOCAINE 4% PATCH TOPICAL ONE (18:30)
[2023-10-08 19:12] VITALS: BP 147/80; PULSE 68; RESP 18; TEMP 97.9
== END 2023-10-08 19:00 | disposition home or self-care (01) ==
LOC: EC 16:55
DX: S39.012A Strain of muscle, fascia and tendon of lower back, initial encounter (principal); X58.XXXA Exposure to other specified factors, initial encounter
CPT/HCPCS: 99283; 96372; J1170

== ENCOUNTER → 2023-10-16 | Outpatient (CLI) | payer MEDICARE, OTHER ==
--- NOTE | 2023-10-17 14:12 | MR ---
"EXAMINATION TYPE: MR lumbar spine wo/w con DATE OF EXAM: 10/16/2023 5:43 PM CLINICAL INDICATION:Male, 78 years old with history of M54.16 RADICULOPATHY, LUMBAR REGION; PHH, [place]yl[place] re low back pain that radiates down both legs, history of surgery. COMPARISON: 04/14/2020, 03/06/2023 TECHNIQUE: Multi planar, multi sequence imaging was performed utilizing: T1-weighted, T2-weighted, a nd turbo inversion recovery imaging of the lumbar spine. IV Contrast: 8 cc Gadavist. (None if empty) FINDINGS: Alignment: The lumbar vertebral bodies multilevel compression deformities with vertebral plasty hardy es. There is increased kyphotic/lordotic alignment. Cord: The conus medullaris and the distal spinal cord appear unremarkable with regards to their signa l intensity and morphology. Bones/Discs: Inversion recovery edema within the L3 vertebral body. The L3 vertebral body also demonstrates approx imately 50 % height loss. Edema along the the superior and plate of the T11 vertebral body. T11 vertebral body also demonstrate s compression deformity of at least 50% height loss. Vertebroplasty changes within the L1, L2 and L4 vertebral bodies. Severe degeneration changes with osteophyte formation disc space narrowing and facet joint arthropath y. T12-L1: No evidence of significant spinal canal stenosis. Facet joint arthropathy mild bilateral neur al foraminal stenosis. L1-L2: Central disc protrusion suggested. Series 701 image 28 which impresses upon the cauda equina. There is mild spinal canal stenosis. The neural foramen are mild to moderately narrowed bilaterally. L2-L3: Disc bulge with superimposed protrusion result in severe spinal canal stenosis series 701 imag e 18 with moderate to severe bilateral neural foraminal stenosis. L3-L4: Disc bulge and facet joint arthropathy result in mild spinal canal and moderate to severe bila teral neural foraminal stenosis. L4-L5: Disc bulge and facet joint arthropathy result in mild spinal canal and moderate to severe bila teral neural foraminal stenosis. L5-S1: The disc has a rounded posterior morphology without significant spinal canal stenosis. Facet j oint arthropathy with mild left and mild to moderate neural foraminal stenosis. No significant spinal canal or neural foraminal stenosis in the remainder of the visualized levels. Other findings: High T2 signal right renal simple appearing cyst. IMPRESSION: 1. L3-L4 disc bulge with superimposed protrusion with severe spinal canal stenosis and moderate to s evere bilateral neural foraminal stenosis. 2. Central disc protrusion suggested. Series 701 image 28 which impresses upon the cauda equina. 3. Acute/subacute fracture of the L3 vertebral body with bony edema throughout vertebral body There is at least 50% height loss no significant retropulsion. Correlate with back pain and history of trau ma. Suspected acute Schmorl's node of the T11 superior endplate. 1. A [place] level critical message alert has been initiated for Ashley Miller DO~[id number] via the [employer] | Critical Results System on 10/17/2023 2:08 PM. This message alert has been sent to Ashley Miller [id number] via the preferences provided by the clinician for the receipt of Radiology Crit ical Findings. Message ID [id number]."
== END | disposition home or self-care (01) ==
LOC: RADMRIMAIN 16:09
PROVIDERS: ATTEND Orthopaedic Surgery Orthopaedic Surgery of the Spine
DX: M99.73 Connective tissue and disc stenosis of intervertebral foramina of lumbar region (principal); M51.16 Intervertebral disc disorders with radiculopathy, lumbar region; M51.26 Other intervertebral disc displacement, lumbar region; M48.061 Spinal stenosis, lumbar region without neurogenic claudication; S22.080D Wedge compression fracture of T11-T12 vertebra, subsequent encounter for fracture with routine healing; S32.020D Wedge compression fracture of second lumbar vertebra, subsequent encounter for fracture with routine healing; S32.040D Wedge compression fracture of fourth lumbar vertebra, subsequent encounter for fracture with routine healing; M46.1 Sacroiliitis, not elsewhere classified; M47.22 Other spondylosis with radiculopathy, cervical region; M50.122 Cervical disc disorder at C5-C6 level with radiculopathy; M79.18 Myalgia, other site; R26.9 Unspecified abnormalities of gait and mobility; R53.1 Weakness
CPT/HCPCS: 72158; A9585

== ENCOUNTER → 2023-10-23 | Outpatient (CLI) | payer MEDICARE, OTHER ==
[2023-10-23 15:42] LABS: BUN/Creat Ratio 17.78 Ratio (12.00-20.00); Calcium 9.6 mg/dL (8.7-10.3); Carbon Dioxide 26.6 mmol/L (21.6-31.8); Chloride 103 mmol/L (96-109); Glucose 92 mg/dL (70-110); NT-Pro-B-Type Natriuretic Pept 154 pg/mL (0-450); Potassium 4.5 mmol/L (3.5-5.5); Sodium 141 mmol/L (135-145)
== END | disposition home or self-care (01) ==
LOC: LABWHC1 09:55
PROVIDERS: ATTEND Internal Medicine Interventional Cardiology
DX: R60.0 Localized edema (principal)
CPT/HCPCS: 36415; 80048; 83880

== ENCOUNTER → 2023-10-27 | Outpatient (CLI) | payer MEDICARE, OTHER ==
--- NOTE | 2023-10-27 12:40 | XR ---
EXAMINATION TYPE: XR chest 2V DATE OF EXAM: 10/27/2023 COMPARISON: 05/13/2022 INDICATION: Presurgical evaluation TECHNIQUE: Frontal and lateral views of the chest are obtained. FINDINGS: The heart size is normal. The pulmonary vasculature is normal. The lungs are clear. IMPRESSION: 1. No acute pulmonary process.
[2023-10-27 12:49] LABS: INR 0.9 (<1.2); Partial Thromboplastin Time 24.7 sec (22.0-30.0); Prothrombin Time 10.2 sec (10.0-12.5)
[2023-10-27 15:48] LABS: Basophils # (A) 0.04 X 10*3/uL (0.00-0.10); Eosinophils # (A) 0.26 X 10*3/uL (0.04-0.35); Eosinophils % (A) 6.2 %; HCT 48.2 % (39.6-50.0); HGB 15.7 g/dL (13.0-17.0); Lymphocytes # (A) 1.32 X 10*3/uL (0.90-5.00); Lymphocytes % (A) 31.4 %; MCH 30.3 pg (27.0-32.0); MCHC 32.6 g/dL (32.0-37.0); MCV 92.9 FL (80.0-97.0); Monocytes % (A) 11.9 %; NRBC Per 100 WBC 0 X 10*3/uL (0.00-0.01); Neutrophils # (A) 2.06 X 10*3/uL (1.80-7.70); Platelet Count 149 X 10*3/uL (140-440); RBC 5.19 X 10*6/uL (4.40-5.60); RDW 13.2 % (11.5-14.5)
[2023-10-27 15:53] LABS: Blood Urea Nitrogen 21.2 mg/dL (9.0-27.0); Calcium 9.5 mg/dL (8.7-10.3); Carbon Dioxide 26.1 mmol/L (21.6-31.8); Chloride 104 mmol/L (96-109); Glucose 101 mg/dL (70-110); Potassium 3.7 mmol/L (3.5-5.5); Sodium 142 mmol/L (135-145)
[2023-10-27 20:39] LABS: Appearance,Urine Cloudy (Clear); Bilirubin,Urine Negative (Negative); Blood,Urine Negative (Negative); Color,Urine Dark Yellow (Yellow); Ketones,Urine Negative (Negative); Nitrite,Urine Negative (Negative); PH, Urine 5.5; Specific Gravity,Urine 1.027 (1.001-1.030); Urobilinogen,Urine 0.2 E.U./DL
[2023-10-27 21:17] LABS: Bacteria,Urine None Seen (None Seen); Calcium Oxalate Crystals,Urine Present (None Seen)
== END | disposition home or self-care (01) ==
LOC: LABPAT 11:51
PROVIDERS: ATTEND Orthopaedic Surgery Orthopaedic Surgery of the Spine
DX: Z01.812 Encounter for preprocedural laboratory examination (principal); Z22.322 Carrier or suspected carrier of Methicillin resistant Staphylococcus aureus; S32.030A Wedge compression fracture of third lumbar vertebra, initial encounter for closed fracture
CPT/HCPCS: 71046; 80048; 81001; 85025; 85610; 85730; 87070; 93005

== ENCOUNTER → 2023-11-12 | Outpatient (CLI) | payer MEDICARE, OTHER ==
[2023-11-12 11:18] VITALS: BP 105/64; PULSE 65; RESP 16
--- NOTE | 2023-11-12 14:32 | P.PAINPG ---
PQRS Measure Charge Sheet Comment: HISTORY OF PRESENT ILLNESS: A 78 yr old male presents today w severe and chronic LBP > 1 yr secondary to L3 Kyphoplasty in October 2023 for evaluation. Pt states his pain level is provoked at 9 /10 in intensity, predominantly axial, intermittent, localized in the lumbar spine, dull in character w occasional radiation towards BLEs. Pain has unknown provocative factors. Pain is palliated w PT x 2 wks which he is currently in, use of a walker, medications ([place] 5/325mg, ASA), heat & ice at PT, laying supine, repositioning and rest. Oswestry axial pain score of 29. Interventional procedures include Medications include REVIEW OF ORGAN SYSTEMS: CONSTITUTIONAL: No fevers or chills. No recent weight loss. NEUROLOGICAL: + numbness and tingling along the distal extremities. No seizure disorders or headaches. MUSCULOSKELETAL: + pain PSYCHIATRIC: Denies current depression or suicidal thoughts. Physical Examinations : Constitutional : Cooperative , not in acute distress . Neurologic : Cranial nerve II to XII intact. No focal neurological deficits. Psychiatric : alert & oriented x 3. Matching mood & appropriate affect. Judgment & insight intact. Musculoskeletal : Cervical Spine Motor strength in the deltoid and biceps: Normal right side. Normal Left side Motor strength biceps and the wrist extensors: Normal right side . Normal left side Motor strength in the triceps muscle: Normal right side. Normal left side Deep tendon reflexes: Normal at the biceps. Normal at Brachioradialis. Normal at triceps Vertebral body tenderness to deep palpation over Cervical facet loading test: positive bilaterally Spurling test: positive bilaterally Neck distraction test: positive bilaterally Avelino sign: positive bilaterally Lumbar spine Motor strength lower extremities ,thigh and legs 5/5 Right side , 5/5 Left side Deep tendon reflexes : Normal Knee Jerk. Normal Ankle Jerk Vertebral body tenderness over L3 Devine test positive BL L2-L3 Lumbar facet Loading Test: positive Right / positive Left Range of motion of the lumbar spine Flexion 30 degrees, extension 10 degrees Straight Leg Raise test: Left/ Right positive at degree Chris test: positive right / positive left. Severe tenderness over the Sacroiliac joint on the Right / Left sides Gaenslen test: positive bilaterally Seated flexion test: positive bilaterally. Sacral spine : Severe tenderness over the Sacroiliac joint: right side / left side Range of motion: Flexion of the lumbar spine <60 degrees Range of motion: Extension of the lumbar spine <20 degrees Gaenslen's Test positive Alberto's Test positive Chris test: positive right side / left side Thigh Thrust Test Sacral Thrust Test Imaging: MRI without contrast of the lumbar spine from 01/23/20 reviewed Assessment/ Plan : Lumbar Stenosis, Post L3 Kyphoplasty Recommendation of BL TFESI L2-L3. May need a series, up to 3 within a 6 mo period, for optimal pain relief. Risks, benefits of procedure discussed and patient verbalized understanding. Protocol for discontinuation/ continuation of medications juan carlos procedure discussed. Vendor Relationship Manager via zoom available to discuss and pt acknowledged understanding. All questions answered. I have spent greater than 30 minutes on patient care today. Dr Montiel was available by phone for the evaluation of this patient. The time was used to review the medical records including relevant urine studies and Prescription history (MAPs), review of the available imaging, evaluation and examination of the patient, coordination of care with the medical staff and if applicable referring physicians, as well as creation of the medical record PQRS Narrative: Smoking Status Former smoker Hx Alcohol Use (MH) No Home Medications: Ambulatory Orders Docusate Sodium [Dok] 100 mg PO DAILY PRN 12/20/19 Donepezil [Aricept] 5 mg PO HS 03/27/22 Atorvastatin [Lipitor] 80 mg PO HS #90 tab 03/28/22 Metoprolol Tartrate [Lopressor] 25 mg PO BID #180 tab 03/28/22 Linaclotide [Linzess] 290 mcg PO DAILY 04/22/22 Apixaban [Eliquis] 5 mg PO BID tab 04/28/22 Famotidine [Pepcid] 20 mg PO BID 02/13/23 Ergocalciferol [Vitamin D2 (1250 Mcg = 74401 Iu)] 1,250 mcg PO WEEKLY 10/27/23 Furosemide [Lasix] 20 mg PO DAILY 10/27/23 Magnesium 200 mg PO DAILY 10/27/23 oxyCODONE-APAP 5-325MG [Percocet 5-325 mg] 1 tab PO TID PRN 10/27/23 Zinc Gluconate [Zinc] 50 mg PO DAILY 10/28/23 Controlled Substance Measures - Controlled Substance Measures Is patient prescribed a controlled substance at discharge?: Yes When asked, does pt state using other controlled substances?: Yes If prescribed controlled substance>3 days was MAPS reviewed?: Prescribed <3 Days
== END ==
LOC: PNWHC3 09:00
PROVIDERS: ATTEND Specialist
DX: M48.061 Spinal stenosis, lumbar region without neurogenic claudication (principal); Z98.1 Arthrodesis status; Z87.891 Personal history of nicotine dependence
CPT/HCPCS: 99211

== ENCOUNTER 2023-12-18 11:02 | Day surgery (SDC) | payer MEDICARE, OTHER ==
[2023-12-18] MEDS ORDERED: LACTATED RINGERS 1,000 ML IV SCH (12:42)
[2023-12-18 13:03] VITALS: TEMP 97.5
[2023-12-18] MEDS ORDERED: DEXAMETHASONE SOD PHOSPHATE 10 MG/ML 1 ML VIAL ONE (13:50)
--- NOTE | 2023-12-18 14:41 | P.PCN ---
Description of Procedure: PREOPERATIVE DIAGNOSIS: 1-Lumbar radiculopathy . 2-lumbar degenerative disc disease. 3-lumbar spondylosis with lumbar facet arthropathy without myelopathy POSTOPERATIVE DIAGNOSIS: 1-lumbar radiculopathy. 2-lumbar degenerative disc disease. 3-lumbar spondylosis with facet arthropathy without myelopathy PROCEDURE 1. Transforaminal epidural steroid injection under fluoroscopic guidance at LEFT L4-5 level. (Fluoroscopy images stored on file in the radiology Department ) 2. Lumbar epidurogram . ANESTHESIA: Local with 1% lidocaine 5 ml. subcutaneously. Continuous pulse ox, EKG, blood pressure and verbal communication was maintained with the patient. EBL: Minimal PROCEDURE INDICATION: The patient with low back pain and radiculopathy symptoms unresponsive to conservative treatment. The patient was seen and identified in the preoperative area. Risks, benefits, complications, and alternatives were discussed with the patient. The patient agreed to proceed with the procedure and signed the consent. IV was started, and vital signs were stable. PROCEDURE DESCRIPTION / TECHNIQUE: After getting consent, patient was taken to the OR and time out was completed. The patient was placed in the prone position on procedure table and a pillow was placed under the abdomen to reduce lumbar lordosis. The lumbosacral area was prepped and draped in the usual sterile fashion. Critical pause was taken. At the beginning initial attempt was to visualize and do L2-3 transforaminal LUCRECIA. But because of kyphoplasty at L1-4 level it was virtually impossible to visualize intervertebral foraminal space at that level. I also could not visualize properly because of vertebral changes right L4-5 foraminal space. Only site where I could visualize reasonably confidently was left L4-5 intervertebral foraminal space that is why I decided to the do the procedure only at that level. After injecting 5 mL of plain 1% lidocaine subcutaneously, under oblique view of the fluoroscope, a 22-gauge spinal needle was introduced under the tunnel view of the fluoroscope on the LEFT side and the needle was advanced so that the tip of the needle was at the posterior inferior quadrant of the intervertebral foramen at the lateral view of the fluoroscope and in the lateral third of the facet column in the AP view of the fluoroscope. Negative CSF, negative blood, negative paresthesia. After needle position confirmation by AP and cross table lateral view, 3 mL of Isovue-M 200 contrast was injected under continuous fluoroscope. No contrast was noted in the intrathecal or intravascular space. The epidurogram was noted. Again after repeated negative aspiration 2.5 mL solution was injected which consists 1.5 mL of normal saline mixed with 1 mL of 20 mg dexamethasone. Needle was removed . At the end of the procedure, skin was cleansed, and bandages were applied. DISPOSITION / PLANS: No complication. The patient tolerated the procedure well. The patient was placed in a supine position and transferred to the recovery area in a stable condition for observation. There was no evidence of lower extremity motor or sensory deficit after the procedure. Patient was discharged from the recovery room after meeting discharge criteria. Home discharge instructions were given to the patient by the staff. The patient was reexamined prior to discharge. PLEASE SCHEDULE NEXT INJECTION L5-S1 INTERLAMINAR LUCRECIA, NOT TRANSFORAMINAL.
[2023-12-18 15:02] VITALS: BP 119/68; PULSE 69; RESP 18
--- NOTE | 2023-12-18 15:17 | FL ---
Fluoroscopy INDICATION: Pain FINDINGS: Fluoroscopy time: 150.3 seconds. Total dose area product (DAP) in uGy*m?, mGy*cm? (or similar): 0.64554 Images obtained: 5. IMPRESSION: 1. Documentation of fluoroscopy.
== END 2023-12-18 15:11 | disposition home or self-care (01) ==
LOC: ORPAIN 11:02
PROVIDERS: ATTEND Pain Medicine Interventional Pain Medicine
DX: M47.26 Other spondylosis with radiculopathy, lumbar region (principal); M51.16 Intervertebral disc disorders with radiculopathy, lumbar region; Z79.01 Long term (current) use of anticoagulants
CPT/HCPCS: 64483; J1100

== ENCOUNTER → 2023-12-18 | Outpatient (CLI) | payer MEDICARE, OTHER ==
[2023-12-18 15:28] LABS: ALT 28 U/L (10-49); AST 22 U/L (14-35); Albumin 3.9 g/dL (3.8-4.9); Albumin/Globulin Ratio 1.95 Ratio (1.60-3.17); Alkaline Phosphatase 162 U/L (41-126); BUN/Creat Ratio 13.78 Ratio (12.00-20.00); Blood Urea Nitrogen 12.4 mg/dL (9.0-27.0); Calcium 8.9 mg/dL (8.7-10.3); Chloride 103 mmol/L (96-109); Chol/HDL Ratio 3.56 Ratio; Glucose 96 mg/dL (70-110); Potassium 4.3 mmol/L (3.5-5.5); Sodium 141 mmol/L (135-145); Total Bilirubin 1.2 mg/dL (0.3-1.2); Total Protein 5.9 g/dL (6.2-8.2); VLDL Calculation 19.64 mg/dL (5.00-40.00)
== END | disposition home or self-care (01) ==
LOC: LABWHC1 10:41
PROVIDERS: ATTEND Internal Medicine Interventional Cardiology
DX: E78.2 Mixed hyperlipidemia (principal)
CPT/HCPCS: 36415; 80053; 80061

== ENCOUNTER 2023-12-28 12:40 | Observation (INO) | payer MEDICARE, OTHER ==
--- NOTE | 2023-12-28 13:14 | ED ---
Chest Pain HPI - General Chief Complaint: Chest Pain Stated Complaint: Chest pain Time Seen by Provider: 12/28/23 12:56 Source: patient, RN notes reviewed Mode of arrival: wheelchair - History of Present Illness Initial Comments: 78-year-old male with a history of coronary artery disease pulmonary embolism lumbar radiculopathy osteoporosis who states he has had 10 days of anterior chest pain. He states this is associated with shortness of breath. No overt fevers chills or sweats or cough reported. No trauma reported. Information obtained through a educational sign language interpreter MD Complaint: chest pain, other - Related Data Home Medications Medication Instructions Recorded Confirmed Docusate Sodium [Dok] 100 mg PO DAILY PRN 12/20/19 12/28/23 Linaclotide [Linzess] 290 mcg PO DAILY 04/22/22 12/28/23 Ergocalciferol [Vitamin D2 (1250 1,250 mcg PO WEEKLY 10/27/23 12/28/23 Mcg = 42478 Iu)] Furosemide [Lasix] 20 mg PO DAILY 10/27/23 12/28/23 oxyCODONE-APAP 5-325MG [Percocet 1 tab PO TID PRN 10/27/23 12/28/23 5-325 mg] Alendronate Sodium [Fosamax] 70 mg PO WEEKLY 12/28/23 12/28/23 Famotidine [Pepcid] 40 mg PO HS 12/28/23 12/28/23 Ferrous Sulfate [Iron] 325 mg PO DAILY 12/28/23 12/28/23 Pantoprazole Sodium [Protonix] 40 mg PO AC-BID 12/28/23 12/28/23 Pramipexole [Mirapex] 1 mg PO HS 12/28/23 12/28/23 Previous Rx's Medication Instructions Recorded Atorvastatin [Lipitor] 80 mg PO HS #90 tab 03/28/22 Metoprolol Tartrate [Lopressor] 25 mg PO BID #180 tab 03/28/22 Apixaban [Eliquis] 5 mg PO BID tab 04/28/22 Allergies Allergy/AdvReac Type Severity Reaction Status Date / Time No Known Allergies Allergy Verified 12/28/23 14:36 Review of Systems ROS Statement: Those systems with pertinent positive or pertinent negative responses have been documented in the HPI. ROS Other: All systems not noted in ROS Statement are negative. 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 Past Anesthesia/Blood Transfusion Reactions: No Reported Reaction Additional Past Anesthesia/Blood Transfusion Reaction / Comment(s): no hx blood transfsuion. No probles with Anesthesia has had general anesthesia w/out complications r/t diaphragm Past Psychological History: No Psychological Hx Reported Smoking Status: Former smoker - Past Family History Mother Family Medical History: Cancer General Exam - General Exam Comments Initial Comments: This is a well-developed well-nourished awake alert oriented x 4 male General appearance: alert, anxious Head exam: Present: atraumatic, normocephalic, normal inspection Eye exam: Present: normal appearance, PERRL, EOMI. Absent: scleral icterus, conjunctival injection, periorbital swelling ENT exam: Present: normal exam, mucous membranes moist Neck exam: Present: normal inspection. Absent: tenderness, meningismus, lymphadenopathy Respiratory exam: Present: normal lung sounds bilaterally, other (Examination of the respiratory rate was within normal limits on my examination.). Absent: re spiratory distress, wheezes, rales, rhonchi, stridor Cardiovascular Exam: Present: regular rate, normal rhythm, normal heart sounds. Absent: systolic murmur, diastolic murmur, rubs, gallop, clicks GI/Abdominal exam: Present: soft, normal bowel sounds. Absent: distended, tenderness, guarding, rebound, rigid Extremities exam: Present: normal inspection, full ROM, normal capillary refill. Absent: tenderness, pedal edema, joint swelling, calf tenderness Back exam: Present: normal inspection Neurological exam: Present: alert, oriented X3, CN II-XII intact Psychiatric exam: Present: normal affect, normal mood Skin exam: Present: warm, dry, intact, normal color. Absent: rash Course Vital Signs 12/28/23 12/28/23 12/28/23 12:42 13:30 13:45 Temperature 98.5 F Pulse Rate 68 65 Respiratory 44 H 18 Rate Blood Pressure 134/76 131/69 140/86 O2 Sat by Pulse 97 93 L Oximetry 12/28/23 14:15 Temperature Pulse Rate 63 Respiratory 28 H Rate Blood Pressure 131/85 O2 Sat by Pulse 96 Oximetry Chest Pain MDM - MDM I did discuss the findings with the patient through his son who interpreted over the phone. The patient will be admitted for chest pain evaluation. I did discuss the case with Dr. Escobedo. Was pt. sent in by a medical professional or institution (, PA, SQL CONSULTANT, urgent care, hospital, or intermediate...) When possible be specific @ -No Did you speak to anyone other than the patient for history (EMS, parent, family, police, friend...)? What history was obtained from this source @ -Patient's son Did you review nursing and triage notes (agree or disagree)? Why? @ -I reviewed and agree with nursing and triage notes Were old charts reviewed (outside hosp., previous admission, EMS record, old EKG, old radiological studies, urgent care reports/EKG's, intermediate records)? Report findings @ -Old charts were reviewed Differential Diagnosis (chest pain, altered mental status, abdominal pain women, abdominal pain men, vaginal bleeding, weakness, fever, dyspnea, syncope, headache, dizziness, GI bleed, back pain, seizure, CVA, palpatations, mental health, musculoskeletal)? @ -Not applicable EKG interpreted by me (3pts min.). @ -As above EKG interpreted by me at the time of admission initial EKG normal sinus rhythm at 66 DE interval 146 QRS duration 83 QT/QTc 384/397 a second EKG was performed interpreted by me sinus rhythm at 67 DE interval 144 QRS duration 89 QT/QTc 395/410 both EKGs were performed after the patient initially was assessed in his room there was question whether the monitor showed evidence of ST elevation. Both EKGs were compared with EKG dated 10/27/2023 X-rays interpreted by me (1pt min.). @ -Chest x-ray interpreted by me negative for acute process CT interpreted by me (1pt min.). @ -CT angiography interpreted by me no definitive evidence of pulmonary embolism U/S interpreted by me (1pt. min.). @ -None done What testing was considered but not performed or refused? (CT, X-rays, U/S, labs)? Why? @ -None What meds were considered but not given or refused? Why? @ -None Did you discuss the management of the patient with other professionals (professionals i.e. , PA, SQL CONSULTANT, lab, RT, psych nurse, social work supervisor, patents examiner, teacher, community relations officer, major case detective)? Give summary @ -Dr. Escobedo Was smoking cessation discussed for >3mins.? @ -No Was critical care preformed (if so, how long)? @ -No Were there social determinants of health that impacted care today? How? (Homelessness, low income, unemployed, alcoholism, drug addiction, transportation, low edu. Level, literacy, decrease access to med. care, custodial, rehab)? @ -No Was there de-escalation of care discussed even if they declined (Discuss DNR or withdrawal of care, Hospice)? DNR status @ -No What co-morbidities impacted this encounter? (DM, HTN, Smoking, COPD, CAD, Cancer, CVA, ARF, Chemo, Hep., AIDS, mental health diagnosis, sleep apnea, morbid obesity)? @ -Pulmonary embolism, coronary artery disease, lumbar radiculopathy, language barrier] Was patient admitted / discharged? Hospital course, mention meds given and route, prescriptions, significant lab abnormalities, going to OR and other pertinent info. @ -Hospital course Undiagnosed new problem with uncertain prognosis? @ -No Drug Therapy requiring intensive monitoring for toxicity (Heparin, Nitro, Insulin, Cardizem)? @ -No Were any procedures done? @ -No Diagnosis/symptom? @ -Acute chest pain Acute, or Chronic, or Acute on Chronic? @ -Acute Uncomplicated (without systemic symptoms) or Complicated (systemic symptoms)? @ -Default Side effects of treatment? @ -No Exacerbation, Progression, or Severe Exacerbation? @ -No Poses a threat to life or bodily function? How? (Chest pain, [place], [place], pneumonia, PE, COPD, DKA, ARF, appy, cholecystitis, CVA, Diverticulitis, Homicidal, Suicidal, threat to staff... and all critical care pts) @ -Potential Disposition Clinical Impression: Chest pain Disposition: ADMITTED IP TO THIS HOSP Condition: Stable Referrals: Wilma Escobedo MD [Primary Care Provider] - 1-2 days Time of Disposition: 15:00 Decision Date: 12/28/23 Decision Time: 15:00
[2023-12-28 13:16] LABS: Basophils % (A) 1 %; Eosinophils # (A) 0.1 k/uL (0-0.7); Eosinophils % (A) 2 %; HCT 52.3 % (39.0-53.0); HGB 17.1 gm/dL (13.0-17.5); Lymphocytes # (A) 1.2 k/uL (1.0-4.8); Lymphocytes % (A) 20 %; MCH 31.3 pg (25.0-35.0); MCHC 32.6 g/dL (31.0-37.0); Mean Platelet Volume 8.2; Monocytes # (A) 0.4 k/uL (0-1.0); Monocytes % (A) 7 %; Neutrophils # (A) 4.3 k/uL (1.3-7.7); Neutrophils % (A) 69 %; Platelet Count 156 k/uL (150-450); RBC 5.45 m/uL (4.30-5.90); RDW 14.2 % (11.5-15.5); WBC 6.2 k/uL (3.8-10.6)
[2023-12-28 13:19] LABS: INR 0.9 (<1.2); Partial Thromboplastin Time 23.1 sec (22.0-30.0); Prothrombin Time 9.7 sec (10.0-12.5)
[2023-12-28 13:22] LABS: ALT 28 U/L (4-49); African American GFR (CKD) >90 (>60 ml/min/1.73 sqM); Albumin 3.9 g/dL (3.5-5.0); Anion Gap 5 mmol/L; Blood Urea Nitrogen 24 mg/dL (9-20); Calcium 9.4 mg/dL (8.4-10.2); Carbon Dioxide 25 mmol/L (22-30); Chloride 108 mmol/L (98-107); Glucose 100 mg/dL (74-99); Non-African American GFR(CKD) 88 (>60 ml/min/1.73 sqM); Sodium 138 mmol/L (137-145); Total Bilirubin 0.9 mg/dL (0.2-1.3); Total Protein 6.5 g/dL (6.3-8.2)
[2023-12-28 13:24] LABS: AST 31 U/L (17-59); Alkaline Phosphatase 130 U/L (38-126); Potassium 4.9 mmol/L (3.5-5.1)
[2023-12-28] MEDS: ASPIRIN 81 MG PO STA (13:34)
--- NOTE | 2023-12-28 13:40 | XR ---
EXAMINATION TYPE: XR chest 2V DATE OF EXAM: 12/28/2023 COMPARISON: 10/27/23 HISTORY: Shortness of breath TECHNIQUE: Frontal and lateral views of the chest are obtained. FINDINGS: Scattered senescent parenchymal changes noted. Hyperinflation compatible with COPD. No evidence for infiltrate. No evidence for atelectasis. Heart size is stable. Mediastinal structures are stable and grossly unremarkable. No evidence for hilar prominence. Degenerative changes dorsal spine. IMPRESSION: 1. No evidence for acute pulmonary disease.
[2023-12-28 13:56] LABS: Magnesium 2.2 mg/dL (1.6-2.3)
--- NOTE | 2023-12-28 14:24 | CT ---
EXAMINATION TYPE: CT angio chest DATE OF EXAM: 12/28/2023 2:14 PM COMPARISON: 02/13/2023 HISTORY: PE. Technique: Multiple axial images are obtained through the chest following uneventful administration o f nonionic IV contrast previously and was performed according to the CTA protocol. 3-D postprocessing was performed. FINDINGS: There is groundglass opacity in the lower lobes bilaterally likely secondary to atelectasis from subo ptimal inspiration. There is no pleural effusion or pneumothorax. There is no filling defect within the pulmonary arterial circulation to suggest pulmonary embolism. T here is borderline enlargement of the anterior ascending thoracic aorta which measures 3.9 to 4.0 cm. There is no mediastinal, hilar or axillary adenopathy. There is a moderate to large hiatal hernia. There is a stable abdominal aortic aneurysm with a maximum AP diameter 4.5 cm. IMPRESSION: 1. No pulmonary masses. 2. Mild aneurysmal dilatation of the ascending thoracic aorta measuring 3. 3.9-4.0 cm. 3. Stable 4.5 cm AP diameter abdominal aortic aneurysm. 4. Groundglass opacity lower lobes likely secondary to atelectasis. 5. Moderate to large hiatal hernia.
[2023-12-28] MEDS ORDERED: ONDANSETRON 4 MG/2 ML VIAL IVP PRN (15:42)
[2023-12-28] MEDS ORDERED: NALOXONE 0.4 MG/ML 1 ML VIAL IV PRN (15:42)
[2023-12-28] MEDS: FAMOTIDINE 20 MG TAB PO STA (15:43)
[2023-12-28] MEDS: NITROGLYCERIN OINT 1 INCH/GM PACKET TOPICAL STA (15:52)
--- NOTE | 2023-12-28 16:26 | US ---
EXAMINATION TYPE: US venous doppler duplex LE BI DATE OF EXAM: 12/28/2023 4:21 PM COMPARISON: US 2022 CLINICAL INDICATION: Male, 78 years old with history of DVT suspected; SIDE PERFORMED: Bilateral TECHNIQUE: The lower extremity deep venous system is examined utilizing real time linear array sonog bong with graded compression, doppler sonography and color-flow sonography. VESSELS IMAGED: Common Femoral Vein Deep Femoral Vein Greater Saphenous Vein * Femoral Vein Popliteal Vein Small Saphenous Vein * Proximal Calf Veins (* superficial vessels) Right Leg: Appears negative for DVT Left Leg: Appears negative for DVT IMPRESSION: Grayscale, color doppler, spectral doppler imaging performed of the deep veins of the lo wer extremities. There is normal flow, compressibility, vascular waveforms.
[2023-12-28] MEDS ORDERED: oxyCODONE-APAP 5-325MG 1 EACH TAB PO PRN (17:26)
[2023-12-28] MEDS: SODIUM CHLORIDE 0.9% 1,000 ML IV SCH (18:58)
[2023-12-28] MEDS: PANTOPRAZOLE 40 MG TABLET PO SCH (19:01)
[2023-12-28] MEDS: APIXABAN 5 MG TAB PO SCH (20:16)
[2023-12-28] MEDS: ATORVASTATIN 80 MG TAB PO SCH (20:16)
[2023-12-28] MEDS: PRAMIPEXOLE 1 MG TAB PO SCH (20:16)
[2023-12-28] MEDS: FAMOTIDINE 20 MG TAB PO SCH (20:16)
[2023-12-28] MEDS: METOPROLOL TARTRATE 25 MG TAB PO SCH (20:17)
--- NOTE | 2023-12-29 10:20 | P.CRDCN ---
History of Present Illness History of present illness: HISTORY OF PRESENT ILLNESS: This is a 78-year-old male with a past medical history significant for coronary artery disease with previous stenting of the RCA, DVT on Eliquis outpatient, and hyperlipidemia. Patient follows in the office with Dr. Marrero. We have been asked to see the patient in consultation for chest pain. Patient examined at the bedside. Patient speaks limited Venezuelan. His primary language is Tajik. Dr. Hurst was able to communicate with the patient in Tajik. He the patient states he has been having chest pain on and off for the past 10 days. He states yesterday the pain became worse so he decided to come to the emergency room. He states the pain is usually not exertionally related except yesterday he did develop chest discomfort while he was walking. DIAGNOSTICS: - EKG reveals sinus mechanism with no signs of acute ischemia - Chest xray negative for acute process -Chest CTA: No pulmonary masses. No filling defect to suggest pulmonary embolism. Mild aneurysmal dilatation of the ascending thoracic aorta measuring 3.94 cm, stable 4.5 cm diameter abdominal aortic aneurysm, moderate to large large hiatal hernia - Current home cardiac medications include Lipitor 80 mg at night, metoprolol tartrate 25 mg twice a day, Lasix 20 mg daily, Eliquis 5 mg twice a day. - Most recent echocardiogram obtained in February 2023 revealed normal EF, moderate AR, mild to moderate MR, mild to moderate TR - Cardiac catheterization history: March 2022 with stenting to the proximal and distal RCA REVIEW OF SYSTEMS: At the time of my exam: CONSTITUTIONAL: Denies fever or chills. HEENT: Denies blurred vision, vision changes, or eye pain. Denies hemoptysis CARDIOVASCULAR: Denies chest pain. Denies orthopnea. Denies PND. Denies palpitations RESPIRATORY: Denies shortness of breath. GASTROINTESTINAL: Denies abdominal pain. Denies nausea or vomiting. HEMATOLOGIC: Denies bleeding disorders. GENITOURINARY: Denies any blood in urine. SKIN: Denies pruitis. Denies rash. PHYSICAL EXAM: VITAL SIGNS: Reviewed. GENERAL: Well-developed in no acute distress. HEENT: Head is normocephalic. Pupils are equal, round. Sclerae anicteric. Mucous membranes of the mouth are moist. Neck supple. No JVD or thyromegaly LUNGS: Respirations even and unlabored. Lungs essentially clear to auscultation bilaterally. HEART: Regular rate and rhythm. S1 and S2 heard. Systolic murmur noted ABDOMEN: Soft. Nondistended. Nontender. EXTREMITIES: Normal range of motion. No clubbing or cyanosis. Peripheral pulses intact. No lower extremity edema NEUROLOGIC: Awake and alert. Oriented x 3. ASSESSMENT: Chest pain, troponin negative x 3 Coronary artery disease with previous stenting of the proximal and distal RCA, 03/2022 Hyperlipidemia Abdominal aortic aneurysm, measuring 4.5 cm History of DVT, on Eliquis outpatient PLAN: An acute coronary event has been ruled out Obtain 2D echo to assess cardiac structure and function Resume home cardiac medications Patient to undergo stress echocardiogram today If negative, he may be discharged home today from a cardiac standpoint Further recommendations pending patient course Patient to follow-up postdischarge with Dr. Marrero Nurse practitioner note has been reviewed by physician. Signing provider agrees with the documented findings, assessment, and plan of care documented by COMMODITIES TRADER as a scribe. 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 Past Anesthesia/Blood Transfusion Reactions: No Reported Reaction Additional Past Anesthesia/Blood Transfusion Reaction / Comment(s): no hx blood transfsuion. No probles with Anesthesia has had general anesthesia w/out complications r/t diaphragm Past Psychological History: No Psychological Hx Reported Smoking Status: Former smoker Past Alcohol Use History: None Reported Additional Past Alcohol Use History / Comment(s): quit smoking 1986 Past Drug Use History: None Reported - Past Family History Mother Family Medical History: Cancer Medications and Allergies Home Medications Medication Instructions Recorded Confirmed Type Docusate Sodium [Dok] 100 mg PO DAILY PRN 12/20/19 12/28/23 History Atorvastatin [Lipitor] 80 mg PO HS #90 tab 03/28/22 12/28/23 Rx Metoprolol Tartrate [Lopressor] 25 mg PO BID #180 tab 03/28/22 12/28/23 Rx Linaclotide [Linzess] 290 mcg PO DAILY 04/22/22 12/28/23 History Apixaban [Eliquis] 5 mg PO BID tab 04/28/22 12/28/23 Rx Ergocalciferol [Vitamin D2 (1250 1,250 mcg PO WEEKLY 10/27/23 12/28/23 History Mcg = 08168 Iu)] Furosemide [Lasix] 20 mg PO DAILY 10/27/23 12/28/23 History oxyCODONE-APAP 5-325MG [Percocet 1 tab PO TID PRN 10/27/23 12/28/23 History 5-325 mg] Alendronate Sodium [Fosamax] 70 mg PO WEEKLY 12/28/23 12/28/23 History Famotidine [Pepcid] 40 mg PO HS 12/28/23 12/28/23 History Ferrous Sulfate [Iron] 325 mg PO DAILY 12/28/23 12/28/23 History Pantoprazole Sodium [Protonix] 40 mg PO AC-BID 12/28/23 12/28/23 History Pramipexole [Mirapex] 1 mg PO HS 12/28/23 12/28/23 History Allergies Allergy/AdvReac Type Severity Reaction Status Date / Time No Known Allergies Allergy Verified 12/28/23 14:36 Physical Exam Vitals: Vital Signs Temp Pulse Pulse Resp BP BP BP 12/29/23 03:40 98.4 F 75 16 86/52 89/57 12/29/23 02:00 60 18 12/28/23 23:20 97.6 F 60 18 100/60 12/28/23 20:29 98.1 F 67 18 103/67 12/28/23 20:20 67 18 12/28/23 20:18 83 18 113/73 12/28/23 19:33 83 18 105/76 12/28/23 18:00 79 18 105/78 12/28/23 17:00 72 17 120/81 12/28/23 16:00 62 16 136/89 12/28/23 15:45 61 28 H 130/90 12/28/23 15:30 64 23 133/81 12/28/23 15:15 64 21 129/81 12/28/23 15:00 63 23 126/84 12/28/23 14:45 64 21 124/88 12/28/23 14:15 63 28 H 131/85 12/28/23 13:45 140/86 12/28/23 13:30 65 18 131/69 12/28/23 12:42 98.5 F 68 44 H 134/76 Pulse Ox 12/29/23 03:40 93 L 12/29/23 02:00 12/28/23 23:20 97 12/28/23 20:29 95 12/28/23 20:20 12/28/23 20:18 98 12/28/23 19:33 95 12/28/23 18:00 96 12/28/23 17:00 96 12/28/23 16:00 96 12/28/23 15:45 96 12/28/23 15:30 12/28/23 15:15 96 12/28/23 15:00 97 12/28/23 14:45 96 12/28/23 14:15 96 12/28/23 13:45 12/28/23 13:30 93 L 12/28/23 12:42 97 Intake and Output 12/28/23 12/29/23 12/29/23 22:59 06:59 14:59 Intake Total 10 Balance 10 Intake: IV 10 0.9 10 Other: Voiding Method Toilet Toilet Urinal Urinal # Voids 1 Weight 83.915 kg 83.3 kg Results 12/28/23 12:55 12/28/23 12:55 Cardiac Enzymes 12/28/23 12/28/23 12/28/23 Range/Units 12:55 12:55 18:17 AST 31 (17-59) U/L Troponin I <0.012 <0.012 (0.000-0.034) ng/mL 12/28/23 Range/Units 20:50 AST (17-59) U/L Troponin I <0.012 (0.000-0.034) ng/mL Coagulation 12/28/23 Range/Units 12:55 PT 9.7 L (10.0-12.5) sec APTT 23.1 (22.0-30.0) sec CBC 12/28/23 Range/Units 12:55 WBC 6.2 (3.8-10.6) k/uL RBC 5.45 (4.30-5.90) m/uL Hgb 17.1 (13.0-17.5) gm/dL Hct 52.3 (39.0-53.0) % Plt Count 156 (150-450) k/uL Comprehensive Metabolic Panel 12/28/23 Range/Units 12:55 Sodium 138 (137-145) mmol/L Potassium 4.9 (3.5-5.1) mmol/L Chloride 108 H (98-107) mmol/L Carbon Dioxide 25 (22-30) mmol/L BUN 24 H (9-20) mg/dL Creatinine 0.77 (0.66-1.25) mg/dL Glucose 100 H (74-99) mg/dL Calcium 9.4 (8.4-10.2) mg/dL AST 31 (17-59) U/L ALT 28 (4-49) U/L Alkaline Phosphatase 130 H (38-126) U/L Total Protein 6.5 (6.3-8.2) g/dL Albumin 3.9 (3.5-5.0) g/dL Current Medications Generic Name Dose Route Start Last Admin Trade Name Juan Pabloq PRN Reason Stop Dose Admin Apixaban 5 mg 12/28/23 21:00 12/28/23 20:16 Apixaban 5 Mg Tab PO 5 mg BID RAHUL Administration Protocol Atorvastatin Calcium 80 mg 12/28/23 21:00 12/28/23 20:16 Atorvastatin 80 Mg Tab PO 80 mg HS RAHUL Administration Docusate Sodium 100 mg 12/28/23 17:26 Docusate 100 Mg Cap PO DAILY PRN Constipation Ergocalciferol 1,250 mcg 01/04/24 09:00 Ergocalciferol 1,250 Mcg (50,000 Iu) Capsule PO WEEKLY RAHUL Famotidine 40 mg 12/28/23 21:00 12/28/23 20:16 Famotidine 20 Mg Tab PO 40 mg HS RAHUL Administration Ferrous Sulfate 325 mg 12/29/23 09:00 Ferrous Sulfate 325 Mg Tab PO DAILY RAHUL Furosemide 20 mg 12/29/23 09:00 Furosemide 20 Mg Tab PO DAILY RAHUL Sodium Chloride 1,000 mls @ 20 mls/hr 12/28/23 15:45 12/28/23 18:58 Saline 0.9% IV Not Given .Q24H RAHUL Metoprolol Tartrate 25 mg 12/28/23 21:00 12/28/23 20:17 Metoprolol Tartrate 25 Mg Tab PO 25 mg BID RAHUL Administration Naloxone HCl 0.2 mg 12/28/23 15:42 Naloxone 0.4 Mg/Ml 1 Ml Vial IV Q2M PRN Opioid Reversal Non-Formulary Medication 290 mcg 12/29/23 09:00 Linaclotide [Linzess] PO DAILY RAHUL Ondansetron HCl 4 mg 12/28/23 15:42 Ondansetron 4 Mg/2 Ml Vial IVP Q8HR PRN Nausea And Vomiting Oxycodone/Acetaminophen 1 each 12/28/23 17:26 Oxycodone-Apap 5-325mg 1 Each Tab PO TID PRN Pain Pantoprazole Sodium 40 mg 12/28/23 17:30 12/28/23 19:01 Pantoprazole 40 Mg Tablet PO 40 mg AC-BID RAHUL Administration Pramipexole Dihydrochloride 1 mg 12/28/23 21:00 12/28/23 20:16 Pramipexole 1 Mg Tab PO 1 mg HS RAHUL Administration Intake and Output 12/28/23 12/29/23 12/29/23 22:59 06:59 14:59 Intake Total 10 Balance 10 Intake: IV 10 0.9 10 Other: Voiding Method Toilet Toilet Urinal Urinal # Voids 1 Weight 83.915 kg 83.3 kg 12/28/23 12:55 12/28/23 12:55
[2023-12-29 11:18] VITALS: RESP 18
[2023-12-29] MEDS ORDERED: DOBUTamine DRIP for NUC MED 500 MG in DEXTROSE/WATER 1 250ML.BAG IV PRN (11:30)
[2023-12-29] MEDS: NON FORMULARY DRUG (Linaclotide [Linzess] 290 MCG Capsule) PO SCH (12:47)
[2023-12-29] MEDS: FUROSEMIDE 20 MG TAB PO SCH (12:47)
[2023-12-29] MEDS: FERROUS SULFATE 325 MG TAB PO SCH (12:47)
--- NOTE | 2023-12-29 17:09 | P.HPIM ---
History of Present Illness H&P Date: 12/28/23 Patient is a 78-year-old male who presented to [facility] emergency room with a chief complaint of chest pain, patient describes episodes of pressure in the middle of his chest on and off for the last 10 days He was evaluated in the emergency room vital examination on presentation revealed a temperature of 98.5 pulse 68 respiration 18 blood pressure 134/76 pulse ox 93% on room air Laboratory data revealed a white blood count of 6.2 hemoglobin 17.1 platelet count 156 D-dimer 2.82 BUN 24 creatinine 0.77 troponin 0.012 Testing in the emergency room revealed chest x-ray revealed no evidence for acute pulmonary disease, CT angiogram of the chest revealed no evidence of pulmonary embolism Patient was admitted D-dimer 2.82 BUN 24 creatinine 0.77to medical floor for further evaluation and treatment Past Medical History Past Medical History: Deep Vein Thrombosis (DVT), GERD/Reflux Additional Past Medical History / Comment(s): compression fracture of lumbar spine, home O2 sometimes, hx stomach ulcer, severe acid reflux, "was told from previous Dr that diaphragm may have previously ruptured and is not working properly", constipation, "when I eat greasy,fatty or fried food it hard to digest it", feels heavy feeling after eating, enlarged prostate,PE 2022 History of Any Multi-Drug Resistant Organisms: None Reported Past Surgical History: Hernia Repair, Prostate Surgery Additional Past Surgical History / Comment(s): rectal fistula surgery, keegan cataract surgery,cementing of the vertebrae in the back,TURP,endoscopy procedures,heart cath x2, Kyphoplasty. Past Anesthesia/Blood Transfusion Reactions: No Reported Reaction Additional Past Anesthesia/Blood Transfusion Reaction / Comment(s): no hx blood transfsuion. No probles with Anesthesia has had general anesthesia w/out comp lications r/t diaphragm Past Psychological History: No Psychological Hx Reported Smoking Status: Former smoker - Past Family History Mother Family Medical History: Cancer Medications and Allergies Home Medications Medication Instructions Recorded Confirmed Type Docusate Sodium [Dok] 100 mg PO DAILY PRN 12/20/19 12/28/23 History Atorvastatin [Lipitor] 80 mg PO HS #90 tab 03/28/22 12/28/23 Rx Metoprolol Tartrate [Lopressor] 25 mg PO BID #180 tab 03/28/22 12/28/23 Rx Linaclotide [Linzess] 290 mcg PO DAILY 04/22/22 12/28/23 History Apixaban [Eliquis] 5 mg PO BID tab 04/28/22 12/28/23 Rx Ergocalciferol [Vitamin D2 (1250 1,250 mcg PO WEEKLY 10/27/23 12/28/23 History Mcg = 26471 Iu)] Furosemide [Lasix] 20 mg PO DAILY 10/27/23 12/28/23 History oxyCODONE-APAP 5-325MG [Percocet 1 tab PO TID PRN 10/27/23 12/28/23 History 5-325 mg] Alendronate Sodium [Fosamax] 70 mg PO WEEKLY 12/28/23 12/28/23 History Famotidine [Pepcid] 40 mg PO HS 12/28/23 12/28/23 History Ferrous Sulfate [Iron] 325 mg PO DAILY 12/28/23 12/28/23 History Pantoprazole Sodium [Protonix] 40 mg PO AC-BID 12/28/23 12/28/23 History Pramipexole [Mirapex] 1 mg PO HS 12/28/23 12/28/23 History Allergies Allergy/AdvReac Type Severity Reaction Status Date / Time No Known Allergies Allergy Verified 12/28/23 14:36 Physical Exam Vitals: Vital Signs Temp Pulse Resp BP Pulse Ox 12/28/23 15:45 61 28 H 130/90 96 12/28/23 15:30 64 23 133/81 12/28/23 15:15 64 21 129/81 96 12/28/23 15:00 63 23 126/84 97 12/28/23 14:45 64 21 124/88 96 12/28/23 14:15 63 28 H 131/85 96 12/28/23 13:45 140/86 12/28/23 13:30 65 18 131/69 93 L 12/28/23 12:42 98.5 F 68 44 H 134/76 97 Intake and Output 12/28/23 12/28/23 12/28/23 06:59 14:59 22:59 Other: Weight 83.915 kg In general patient is alert and oriented x 3 in no distress HEENT head normocephalic and atraumatic Neck is supple no JVD no goiter no lymphadenopathy no carotid bruit Chest examination is clear to auscultation no crackles no wheezing Cardiac exam reveals regular heart sounds S1 and S2 no gallops no murmurs Abdomen is soft nontender no organomegaly with normal bowel sounds Extremity exam reveals no edema no cyanosis or clubbing Neurological examination reveals no gross focal deficits Results CBC & Chem 7: 12/28/23 12:55 12/28/23 12:55 Labs: Abnormal Lab Results - Last 24 Hours (Table) 12/28/23 12/28/23 12/28/23 Range/Units 12:55 12:55 12:55 PT 9.7 L (10.0-12.5) sec D-Dimer 2.82 H (<0.60) mg/L FEU Chloride 108 H (98-107) mmol/L BUN 24 H (9-20) mg/dL Glucose 100 H (74-99) mg/dL Alkaline Phosphatase 130 H (38-126) U/L Assessment and Plan Plan: Recurrent episodes of chest pain for the last 10 days Elevated D-dimer with no evidence of pulmonary embolism on chest CT angiogram Underlying history of coronary artery disease with history of angioplasty and stent placement in the past Underlying history of hypertension Underlying history of hyperlipidemia Underlying history of osteoporosis Underlying history of osteoarthritis Previous history of pulmonary embolism Underlying history of infrarenal abdominal aortic aneurysm At this time patient was seen and examined Home medications reviewed and reordered Serial troponin levels ordered Bilateral lower extremity Doppler ordered Cardiology consultation requested Will follow closely
--- NOTE | 2023-12-29 17:11 | P.PN ---
Subjective Progress Note Date: 12/29/23 Patient is a 78-year-old male who presented to [facility] emergency room with a chief complaint of chest pain, patient describes episodes of pressure in the middle of his chest on and off for the last 10 days He was evaluated in the emergency room vital examination on presentation revea led a temperature of 98.5 pulse 68 respiration 18 blood pressure 134/76 pulse ox 93% on room air Laboratory data revealed a white blood count of 6.2 hemoglobin 17.1 platelet count 156 D-dimer 2.82 BUN 24 creatinine 0.77 troponin 0.012 Testing in the emergency room revealed chest x-ray revealed no evidence for acute pulmonary disease, CT angiogram of the chest revealed no evidence of pulmonary embolism Patient was admitted D-dimer 2.82 BUN 24 creatinine 0.77to medical floor for further evaluation and treatment On 12/29/2023 patient was seen and examined on the medical floor he is alert and oriented x 3 in no apparent distress, he reports improvement in his chest pain however, he had new episodes of chest pain since admission, otherwise he denies any complaints there is no fever or chills no headache or dizziness no cough no shortness of breath no nausea or vomiting no abdominal pain no diarrhea and no urinary symptoms. He was evaluated by cardiology, echocardiogram and stress test ordered, we are awaiting results at this time. Objective - Vital Signs Vital signs: Vital Signs Temp 97.8 F 12/29/23 12:00 Pulse 78 12/29/23 12:00 Resp 18 12/29/23 12:00 BP 106/64 12/29/23 12:00 Pulse Ox 96 12/29/23 12:00 FiO2 Intake & Output 12/28/23 12/29/23 12/29/23 18:59 06:59 18:59 Intake Total 10 Balance 10 Weight 83.915 kg 83.3 kg Intake: IV 10 0.9 10 Other: Voiding Method Toilet Toilet Urinal Urinal # Voids 1 - Exam In general patient is alert and oriented x 3 in no distress HEENT head normocephalic and atraumatic Neck is supple no JVD no goiter no lymphadenopathy no carotid bruit Chest examination is clear to auscultation no crackles no wheezing Cardiac exam reveals regular heart sounds S1 and S2 no gallops no murmurs Abdomen is soft nontender no organomegaly with normal bowel sounds Extremity exam reveals no edema no cyanosis or clubbing Neurological examination reveals no gross focal deficits - Labs CBC & Chem 7: 12/28/23 12:55 12/28/23 12:55 Assessment and Plan Plan: Recurrent episodes of chest pain for the last 10 days Elevated D-dimer with no evidence of pulmonary embolism on chest CT angiogram Underlying history of coronary artery disease with history of angioplasty and stent placement in the past Underlying history of hypertension Underlying history of hyperlipidemia Underlying history of osteoporosis Underlying history of osteoarthritis Previous history of pulmonary embolism Underlying history of infrarenal abdominal aortic aneurysm At this time patient was seen and examined Home medications reviewed and reordered Serial troponin levels ordered Bilateral lower extremity Doppler ordered Cardiology consultation requested Will follow closely
--- NOTE | 2023-12-29 17:19 | CA ---
Dobutamine Stress Echocardiogram Report Ryna Jacobo Age: 78 Gender: M : 1945 Exam Date: 12/29/2023 11:22 Exam Location: [facility] Ordering Physician: Yvette Espino Referring Physician: [id number] Lau Financial Administration Officer: Juanita Pitts RDCS Technologist: Ht (in): 65 Wt (lb): 183 Procedure CPT: Indication: CP ICD-9 Codes: Rhythm: Patient History: CHEST PAIN, DIFFICULTY IN BREATHING, HYPERCHOLESTEROLEMIA Cardiac Medications: Medications in past 24 hours: Contrast: N/A Total Dose (mL): Stress Results Protocol: Dobutamine Peak Dose (???g/kg/min): 30 Duration (min:sec): Atropine:(mg) Target HR: 122 Double Product: 80057 Resting HR: 52 Resting BP: 122 / 49 Peak HR: 129 Peak BP: 199 / 57 Max Predicted HR: 143 90 % Max Predicted HR Stress Summary: BP Response: Reason for Termination: TARGET HR Cardiac Symptoms: CHEST PAIN "8/10" ECG Analysis Resting EKG: Normal sinus rhythm normal axis normal intervals Stress EKG: Patient was given intravenous dobutamine as per protocol achieving 85% of predicted maximal heart rate without chest pain or diagnostic ST segment depression Arrhythmia: Echo Analysis Base Echo Analysis: Baseline echo shows normal left ventricular size wall motion systolic function Low Echo Anaylsis: Normal Peak Echo Analysis: normal hyperdynamic response Recovery Echo: Normal MEASUREMENTS (Male/Female) Normal Values CONCLUSIONS Negative dobutamine stress echo Dr. Wil Harrison MD (Electronically Signed) Final Date: 29 December 2023 17:18
--- NOTE | 2023-12-29 17:20 | CA ---
Transthoracic Echo Report Name: Ryan Jacobo Age: 78 Gender: M : 1945 Exam Date: 12/29/2023 11:03 Exam Location: [facility] Ht (in): 65 Wt (lb): 150 Ordering Physician: Yvette Espino Attending/Referring Phys: [id number], Kenzie Applications System Analyst Juanita Pitts, NISSA Procedure CPT: Indications: LV function, CP Cardiac Hx: Technical Quality: Fair Contrast 1: Total Dose (mL): Contrast 2: Total Dose (mL): MEASUREMENTS (Male / Female) Normal Values 2D ECHO LV Diastolic Diameter PLAX 4.2 cm 4.2 - 5.9 / 3.9 - 5.3 cm LV Systolic Diameter PLAX 2.9 cm IVS Diastolic Thickness 1.2 cm 0.6 - 1.0 / 0.6 - 0.9 cm LVPW Diastolic Thickness 1.1 cm 0.6 - 1.0 / 0.6 - 0.9 cm LV Relative Wall Thickness 0.6 Aortic Root Diameter 4.0 cm LA Systolic Diameter LX 4.9 cm 3.0 - 4.0 / 2.7 - 3.8 cm LV Diastolic Volume MOD BP 79.3 cm??? 67 - 155 / 56 - 104 cm??? LV Systolic Volume MOD BP 35.9 cm??? 22 - 58 / 19 - 49 cm??? LV Ejection Fraction MOD BP 54.7 % >= 55 % LV Cardiac Index MOD BP 1318.8 cm???/min???m??? LV Diastolic Volume MOD 4C 81.3 cm??? LV Systolic Volume MOD 4C 39.0 cm??? LV Ejection Fraction MOD 4C 52.1 % LV Cardiac Index MOD 4C 1287.0 cm???/min???m??? LV Diastolic Length 4C 7.6 cm LV Systolic Length 4C 5.7 cm LV Diastolic Volume MOD 2C 76.4 cm??? LV Systolic Volume MOD 2C 31.1 cm??? LV Ejection Fraction MOD 2C 59.3 % LV Cardiac Index MOD 2C 1375.4 cm???/min???m??? LV Diastolic Length 2C 7.7 cm LV Systolic Length 2C 6.1 cm M-MODE Aortic Root Diameter MM 4.2 cm LA Systolic Diameter MM 4.5 cm LA Ao Ratio MM 1.1 AV Cusp Separation MM 2.1 cm DOPPLER AV Peak Velocity 167.8 cm/s AV Peak Gradient 11.3 mmHg AI Peak Velocity 352.6 cm/s AI Peak Gradient 49.7 mmHg AI Pressure Half Time 780.6 ms Mitral E Point Velocity 65.3 cm/s Mitral A Point Velocity 70.2 cm/s Mitral E to A Ratio 0.9 MV Deceleration Time 234.5 ms MV E' Velocity 4.9 cm/s Mitral E to MV E' Ratio 13.2 TR Peak Velocity 242.0 cm/s TR Peak Gradient 23.4 mmHg Right Ventricular Systolic Press 33.5 mmHg FINDINGS Left Ventricle Left ventricular ejection fraction is estimated at 55-60 %. Mildly increased septal wall thickness. No obvious regional wall motion abnormalities. Left ventricular cavity size normal. Right Ventricle Normal right ventricular size and function. Right ventricular systolic pressure within normal limits. Right Atrium Moderate right atrial dilatation. Left Atrium Moderately increased left atrial diameter. Mitral Valve Structurally normal mitral valve. [id number] mitral regurgitation. No mitral stenosis. Aortic Valve Trileaflet aortic valve. Moderate aortic regurgitation. Eccentric aortic regurgitation jet directed at the mitral valve. Diffuse thickening (sclerosis) of the aortic valve cusps without reduced excursion. Tricuspid Valve Structurally normal tricuspid valve. Mild tricuspid regurgitation. No tricuspid stenosis. Pulmonic Valve Structurally normal pulmonic valve. Trace pulmonic regurgitation. No pulmonic stenosis. Pericardium No pericardial or pleural effusion. Aorta Moderate aortic dilatation at the level of the sinuses of valsalva (root) 4.2cm CONCLUSIONS Normal LV function mild to moderate mitral regurgitation Moderate aortic regurgitation Previewed by: Dr. Wil Harrison MD (Electronically Signed) Final Date: 29 December 2023 17:19
[2023-12-30] MEDS: DOCUSATE 100 MG CAP PO PRN (06:43)
[2023-12-30 10:36] VITALS: PULSE 80
[2023-12-30 10:37] VITALS: BP 117/65; TEMP 98
--- NOTE | 2023-12-30 11:04 | P.DS ---
Providers Date of admission: 12/28/23 15:45 Expected date of discharge: 12/30/23 Attending physician: Wilma Escobedo Consults: 12/28/23 17:27 Consult Physician Routine Consulting Provider: Sharon Marrero Consult Reason/Comments: Chest pain Do you want consulting provider notified?: Yes Primary care physician: Wilma Escobedo [facility] Course: discharge diagnosis Recurrent episodes of chest pain for the last 10 days Elevated D-dimer with no evidence of pulmonary embolism on chest CT angiogram Underlying history of coronary artery disease with history of angioplasty and stent placement in the past Underlying history of hypertension Underlying history of hyperlipidemia Underlying history of osteoporosis Underlying history of osteoarthritis Previous history of pulmonary embolism Underlying history of infrarenal abdominal aortic aneurysm Hospital course Patient is a 78-year-old male who presented to [facility] emergency room with a chief complaint of chest pain, patient describes episodes of pressure in the middle of his chest on and off for the last 10 days He was evaluated in the emergency room vital examination on presentation revealed a temperature of 98.5 pulse 68 respiration 18 blood pressure 134/76 pulse ox 93% on room air Laboratory data revealed a white blood count of 6.2 hemoglobin 17.1 platelet count 156 D-dimer 2.82 BUN 24 creatinine 0.77 troponin 0.012 Testing in the emergency room revealed chest x-ray revealed no evidence for acute pulmonary disease, CT angiogram of the chest revealed no evidence of pulmonary embolism Patient was admitted D-dimer 2.82 BUN 24 creatinine 0.77to medical floor for further evaluation and treatment On 12/29/2023 patient was seen and examined on the medical floor he is alert and oriented x 3 in no apparent distress, he reports improvement in his chest pain however, he had new episodes of chest pain since admission, otherwise he denies any complaints there is no fever or chills no headache or dizziness no cough no shortness of breath no nausea or vomiting no abdominal pain no diarrhea and no urinary symptoms. He was evaluated by cardiology, echocardiogram and stress test ordered, we are awaiting results at this time. on 12/30/2023 patient's alert and oriented times underwent stress test yesterday that was negative patient cleared for discharge from cardiology standpoint is Doppler negative.patient denies any chest pain or shortness of breath. Patient denies nausea vomiting or diarrhea. Patient denies any urinary burning or frequency Patient Condition at Discharge: Stable Plan - Discharge Summary Discharge Rx Participant: Yes New Discharge Prescriptions: Continue Docusate Sodium [Dok] 100 mg PO DAILY PRN PRN Reason: Constipation Metoprolol Tartrate [Lopressor] 25 mg PO BID #180 tab Linaclotide [Linzess] 290 mcg PO DAILY oxyCODONE-APAP 5-325MG [Percocet 5-325 mg] 1 tab PO TID PRN PRN Reason: Pain Pramipexole [Mirapex] 1 mg PO HS Ferrous Sulfate [Iron] 325 mg PO DAILY Atorvastatin [Lipitor] 80 mg PO HS #90 tab Apixaban [Eliquis] 5 mg PO BID tab Ergocalciferol [Vitamin D2 (1250 Mcg = 13336 Iu)] 1,250 mcg PO WEEKLY Furosemide [Lasix] 20 mg PO DAILY Pantoprazole Sodium [Protonix] 40 mg PO AC-BID Famotidine [Pepcid] 40 mg PO HS Alendronate Sodium [Fosamax] 70 mg PO WEEKLY Discharge Medication List Docusate Sodium [Dok] 100 mg PO DAILY PRN 12/20/19 [History] Atorvastatin [Lipitor] 80 mg PO HS #90 tab 03/28/22 [Rx] Metoprolol Tartrate [Lopressor] 25 mg PO BID #180 tab 03/28/22 [Rx] Linaclotide [Linzess] 290 mcg PO DAILY 04/22/22 [History] Apixaban [Eliquis] 5 mg PO BID tab 04/28/22 [Rx] Ergocalciferol [Vitamin D2 (1250 Mcg = 73361 Iu)] 1,250 mcg PO WEEKLY 10/27/23 [History] Furosemide [Lasix] 20 mg PO DAILY 10/27/23 [History] oxyCODONE-APAP 5-325MG [Percocet 5-325 mg] 1 tab PO TID PRN 10/27/23 [History] Alendronate Sodium [Fosamax] 70 mg PO WEEKLY 12/28/23 [History] Famotidine [Pepcid] 40 mg PO HS 12/28/23 [History] Ferrous Sulfate [Iron] 325 mg PO DAILY 12/28/23 [History] Pantoprazole Sodium [Protonix] 40 mg PO AC-BID 12/28/23 [History] Pramipexole [Mirapex] 1 mg PO HS 12/28/23 [History] Follow up Appointment(s)/Referral(s): Wilma Escobedo MD [Primary Care Provider] - 1-2 days Discharge Disposition: HOME SELF-CARE
--- NOTE | 2023-12-30 13:30 | P.PN ---
Subjective HISTORY OF PRESENT ILLNESS: This is a 78-year-old male with a past medical history significant for coronary artery disease with previous stenting of the RCA, DVT on Eliquis outpatient, and hyperlipidemia. Patient follows in the office with Dr. Marrero. We have been asked to see the patient in consultation for chest pain. Patient examined at the bedside. Patient speaks limited Palauan. His primary language is Swedish. Dr. Hurst was able to communicate with the patient in Swedish. He the patient states he has been having chest pain on and off for the past 10 days. He states yesterday the pain became worse so he decided to come to the emergency room. He states the pain is usually not exertionally related except yesterday he did develop chest discomfort while he was walking. DIAGNOSTICS: - EKG reveals sinus mechanism with no signs of acute ischemia - Chest xray negative for acute process -Chest CTA: No pulmonary masses. No filling defect to suggest pulmonary embolism. Mild aneurysmal dilatation of the ascending thoracic aorta measuring 3.94 cm, stable 4.5 cm diameter abdominal aortic aneurysm, moderate to large large hiatal hernia - Current home cardiac medications include Lipitor 80 mg at night, metoprolol tartrate 25 mg twice a day, Lasix 20 mg daily, Eliquis 5 mg twice a day. - Most recent echocardiogram obtained in February 2023 revealed normal EF, moderate AR, mild to moderate MR, mild to moderate TR - Cardiac catheterization history: March 2022 with stenting to the proximal and distal RCA 12/30/2023 Patient examined this morning at bedside. Patient underwent dobutamine stress echo yesterday which was negative for ischemia. He currently denies chest pain or pressure. He denies shortness of breath. Vital signs are stable. PHYSICAL EXAM: VITAL SIGNS: Reviewed. GENERAL: Well-developed in no acute distress. HEENT: Head is normocephalic. Pupils are equal, round. Sclerae anicteric. Mucous membranes of the mouth are moist. Neck supple. No JVD or thyromegaly LUNGS: Respirations even and unlabored. Lungs essentially clear to auscultation bilaterally. HEART: Regular rate and rhythm. S1 and S2 heard. Systolic murmur noted ABDOMEN: Soft. Nondistended. Nontender. EXTREMITIES: Normal range of motion. No clubbing or cyanosis. Peripheral pulses intact. No lower extremity edema NEUROLOGIC: Awake and alert. Oriented x 3. ASSESSMENT: Chest pain, troponin negative x 3, status post negative dobutamine stress echo Coronary artery disease with previous stenting of the proximal and distal RCA, 03/2022 Hyperlipidemia Abdominal aortic aneurysm, measuring 4.5 cm History of DVT, on Eliquis outpatient PLAN: Continue current cardiac medications Patient is stable for discharge home today from a cardiac standpoint Patient to follow-up postdischarge with Dr. Marrero Nurse practitioner note has been reviewed by physician. Signing provider agrees with the documented findings, assessment, and plan of care documented by PAPER CONSERVATOR as a scribe. Objective - Vital Signs Vital signs: Vital Signs Temp 98.0 F 12/30/23 08:00 Pulse 80 12/30/23 08:00 Resp 18 12/30/23 08:00 BP 117/65 12/30/23 08:00 Pulse Ox 97 12/30/23 08:00 FiO2 Intake & Output 12/29/23 12/30/23 12/30/23 18:59 06:59 18:59 Intake Total 118 120 Balance 118 120 Weight 82.1 kg Intake: Oral 118 120 Other: Voiding Method Toilet Toilet Toilet Urinal Urinal # Voids 1 0 # Bowel Movements 0 - Labs CBC & Chem 7: 12/28/23 12:55 12/28/23 12:55
[2024-01-04] MEDS ORDERED: ERGOCALCIFEROL 1,250 MCG (50,000 IU) CAPSULE PO SCH (09:00)
== END 2023-12-30 12:13 | disposition home or self-care (01) ==
LOC: EC 12:40 → 3SCARD 15:45
PROVIDERS: ADMIT Internal Medicine; ATTEND Internal Medicine
DX: R07.89 Other chest pain (principal); E78.5 Hyperlipidemia, unspecified; I10 Essential (primary) hypertension; M81.0 Age-related osteoporosis without current pathological fracture; Z95.5 Presence of coronary angioplasty implant and graft; I25.10 Atherosclerotic heart disease of native coronary artery without angina pectoris; I71.21 Aneurysm of the ascending aorta, without rupture; I71.40 Abdominal aortic aneurysm, without rupture, unspecified; K44.9 Diaphragmatic hernia without obstruction or gangrene; M54.16 Radiculopathy, lumbar region; R79.89 Other specified abnormal findings of blood chemistry; M19.90 Unspecified osteoarthritis, unspecified site; Z86.711 Personal history of pulmonary embolism; Z86.718 Personal history of other venous thrombosis and embolism; K21.9 Gastro-esophageal reflux disease without esophagitis; Z79.83 Long term (current) use of bisphosphonates; Z79.01 Long term (current) use of anticoagulants; Z79.899 Other long term (current) drug therapy
CPT/HCPCS: 99285; 36415; 93005; 93306; 93351; 85379; 83880; 80053; 82550; 83690; 83735; 84484; 85025; 85610; 85730; 71046; 93970; 71275; G0378 ×3; Q9967

== ENCOUNTER 2024-01-01 12:38 | Observation (INO) | payer MEDICARE, OTHER ==
[2024-01-01] MEDS: NITROGLYCERIN SL TABS 0.4 MG TAB SUBLINGUAL STA (14:54)
[2024-01-01] MEDS: ASPIRIN 81 MG PO STA (14:55)
[2024-01-01] MEDS: SODIUM CHLORIDE 0.9% 1,000 ML IV STA (14:55)
[2024-01-01 15:30] LABS: Basophils % (A) 1 %; Eosinophils # (A) 0.1 k/uL (0-0.7); Eosinophils % (A) 1 %; HCT 39.4 % (39.0-53.0); HGB 12.8 gm/dL (13.0-17.5); Lymphocytes # (A) 0.8 k/uL (1.0-4.8); Lymphocytes % (A) 14 %; MCH 31.1 pg (25.0-35.0); MCHC 32.4 g/dL (31.0-37.0); MCV 96.1 fL (80.0-100.0); Mean Platelet Volume 8.6; Monocytes # (A) 0.3 k/uL (0-1.0); Monocytes % (A) 5 %; Neutrophils # (A) 4.5 k/uL (1.3-7.7); Neutrophils % (A) 79 %; Platelet Count 119 k/uL (150-450); WBC 5.8 k/uL (3.8-10.6)
--- NOTE | 2024-01-01 15:30 | XR ---
EXAMINATION TYPE: XR chest 2V DATE OF EXAM: 01/01/2024 COMPARISON: NONE HISTORY: Shortness of breath TECHNIQUE: Frontal and lateral views of the chest are obtained. FINDINGS: Scattered senescent parenchymal changes noted. Hyperinflation compatible with COPD. No evidence for infiltrate. No evidence for atelectasis. Heart size is stable. Mediastinal structures are stable and grossly unremarkable. No evidence for hilar prominence. Degenerative changes dorsal spine. IMPRESSION: 1. No evidence for acute pulmonary disease.
[2024-01-01 15:40] LABS: INR 1.2 (<1.2); Partial Thromboplastin Time 26.6 sec (22.0-30.0); Prothrombin Time 12.4 sec (10.0-12.5)
[2024-01-01 15:56] LABS: ALT 22 U/L (4-49); AST 20 U/L (17-59); African American GFR (CKD) >90 (>60 ml/min/1.73 sqM); Albumin 2.5 g/dL (3.5-5.0); Alkaline Phosphatase 101 U/L (38-126); Anion Gap 4 mmol/L; Blood Urea Nitrogen 15 mg/dL (9-20); Carbon Dioxide 22 mmol/L (22-30); Chloride 115 mmol/L (98-107); Glucose 75 mg/dL (74-99); Magnesium 1.5 mg/dL (1.6-2.3); Non-African American GFR(CKD) >90 (>60 ml/min/1.73 sqM); Sodium 141 mmol/L (137-145); Total Bilirubin 0.6 mg/dL (0.2-1.3); Total Protein 4.5 g/dL (6.3-8.2)
[2024-01-01] MEDS ORDERED: NALOXONE 0.4 MG/ML 1 ML VIAL IV PRN (16:12)
[2024-01-01] MEDS: POTASSIUM CHLORIDE ER 20 MEQ TAB.ER PO STA (16:54)
[2024-01-01] MEDS: NITROGLYCERIN OINT 1 INCH/GM PACKET TOPICAL SCH (16:56)
[2024-01-01] MEDS: MAGNESIUM SULFATE-D5W PMX 1 GM in DEXTROSE/WATER 1 100ML.BAG IVPB ONE (16:56)
--- NOTE | 2024-01-01 18:48 | ED ---
General Adult HPI - General Chief complaint: Chest Pain Stated complaint: Chest Pain Time Seen by Provider: 01/01/24 14:15 Source: patient, RN notes reviewed, old records reviewed Mode of arrival: wheelchair Limitations: no limitations, language barrier - History of Present Illness Initial comments: Patient is a 78-year-old male who presents emergency department with chest pain. Patient speaks Luxembourgish. I used a video manager web application device. Paving Crew Foreman number for the HPI was [phone]. Presents with left-sided chest pain. No radiation of the pain. Occurred earlier today. States he fell like he was about to blackout during this chest pain as well. Had some leg tingling with it. Everything resolved on its own except for the chest discomfort. Has recurrent chest pain. Has a history of multiple cardiac stents. Follows up with Dr. Marrero. Was recently admitted to the hospital for chest pain twice in the last week. Denies any other acute complaints at this time. Presents for further evaluation at this time. - Related Data Home Medications Medication Instructions Recorded Confirmed Docusate Sodium [Dok] 100 mg PO DAILY PRN 12/20/19 01/01/24 Linaclotide [Linzess] 290 mcg PO DAILY 04/22/22 01/01/24 Ergocalciferol [Vitamin D2 (1250 1,250 mcg PO WEEKLY 10/27/23 01/01/24 Mcg = 79253 Iu)] Furosemide [Lasix] 20 mg PO DAILY 10/27/23 01/01/24 oxyCODONE-APAP 5-325MG [Percocet 1 tab PO TID PRN 10/27/23 01/01/24 5-325 mg] Alendronate Sodium [Fosamax] 70 mg PO WEEKLY 12/28/23 01/01/24 Famotidine [Pepcid] 40 mg PO HS 12/28/23 01/01/24 Ferrous Sulfate [Iron] 325 mg PO DAILY 12/28/23 01/01/24 Pantoprazole Sodium [Protonix] 40 mg PO AC-BID 12/28/23 01/01/24 Pramipexole [Mirapex] 1 mg PO HS 12/28/23 01/01/24 Previous Rx's Medication Instructions Recorded Atorvastatin [Lipitor] 80 mg PO HS #90 tab 03/28/22 Metoprolol Tartrate [Lopressor] 25 mg PO BID #180 tab 03/28/22 Apixaban [Eliquis] 5 mg PO BID tab 04/28/22 Allergies Allergy/AdvReac Type Severity Reaction Status Date / Time No Known Allergies Allergy Verified 01/01/24 16:46 Review of Systems ROS Statement: Those systems with pertinent positive or pertinent negative responses have been documented in the HPI. Review of Systems: CONST: Denies fever EYES: Denies blurry vision ENT: Denies nasal congestion C/V: Endorses chest pain RESP: Denies shortness of breath GI: Denies abdominal pain : Denies dysuria SKIN: Denies rash. MSK: Denies joint pain. NEURO: Denies headache ROS Other: All systems not noted in ROS Statement are negative. 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 Past Anesthesia/Blood Transfusion Reactions: No Reported Reaction Additional Past Anesthesia/Blood Transfusion Reaction / Comment(s): no hx blood transfsuion. No probles with Anesthesia has had general anesthesia w/out complications r/t diaphragm Smoking Status: Former smoker Past Alcohol Use History: None Reported Additional Past Alcohol Use History / Comment(s): quit smoking 1986 Past Drug Use History: None Reported - Past Family History Mother Family Medical History: Cancer General Exam - General Exam Comments Initial Comments: General: Appears in no acute distress. HEAD: Normal with no signs of head trauma. EYES: PERRLA, EOMI, conjunctiva normal, no discharge. ENT: Hearing grossly intact, normal oropharynx. RESPIRATORY: Clear breath sounds bilaterally. No wheezes, rales, or rhonchi. C/V: Regular rate and rhythm. S1 and S2 auscultated, no edema, peripheral pulses 2+ and intact throughout ABD: Abd is soft, nontender, nondistended EXT: Normal range of motion, no obvious deformity SKIN: No rashes or lesions observed on exposed skin. NEURO: Alert and oriented x 4. No focal deficits Limitations: no limitations, language barrier Course Vital Signs 01/01/24 01/01/24 01/01/24 12:40 14:44 18:00 Temperature 97.4 F L Pulse Rate 64 71 98 Respiratory 22 18 18 Rate Blood Pressure 151/90 102/75 107/70 O2 Sat by Pulse 97 98 Oximetry 01/01/24 01/01/24 20:00 20:13 Temperature Pulse Rate 93 94 Respiratory 16 18 Rate Blood Pressure 99/77 112/81 O2 Sat by Pulse 98 97 Oximetry Medical Decision Making - Medical Decision Making Was pt. sent in by a medical professional or institution (, PA, BICYCLE INSPECTOR, urgent care, hospital, or [facility]...) When possible be specific @ -No Did you speak to anyone other than the patient for history (EMS, parent, family, police, friend...)? What history was obtained from this source @ -No Did you review nursing and triage notes (agree or disagree)? Why? @ -I reviewed and agree with nursing and triage notes Were old charts reviewed (outside hosp., previous admission, EMS record, old EKG, old radiological studies, urgent care reports/EKG's, [facility] records)? Report findings @ -Old charts reviewed including recent admission for chest pain. EKG is unchanged with those admissions. Patient admitted on December 27. Differential Diagnosis (chest pain, altered mental status, abdominal pain women, abdominal pain men, vaginal bleeding, weakness, fever, dyspnea, syncope, headache, dizziness, GI bleed, back pain, seizure, CVA, palpatations, mental h ealth, musculoskeletal)? @ -Differential Chest Pain: Stable Angina, Unstable Angina, STEMI, NSTEMI Aortic Dissection, Pneumothorax, Musculoskeletal, Esophageal Spasm GERD, Cholecystitis, Pancreatitis, Zoster, this is not meant to be an all-inclusive list. EKG interpreted by me (3pts min.). @ -As above X-rays interpreted by me (1pt min.). @ -Chest x-ray reveals no obvious acute cardiopulmonary process. CT interpreted by me (1pt min.). @ -None done U/S interpreted by me (1pt. min.). @ -None done What testing was considered but not performed or refused? (CT, X-rays, U/S, labs)? Why? @ -None What meds were considered but not given or refused? Why? @ -None Did you discuss the management of the patient with other professionals (professionals i.e. , PA, BICYCLE INSPECTOR, lab, RT, psych nurse, social secretary, make up man, teacher, foreign policy officer, case aide)? Give summary @ -No Was smoking cessation discussed for >3mins.? @ -No Was critical care preformed (if so, how long)? @ -No Were there social determinants of health that impacted care today? How? (Homelessness, low income, unemployed, alcoholism, drug addiction, transportation, low edu. Level, literacy, decrease access to med. care, long term, rehab)? @ -No Was there de-escalation of care discussed even if they declined (Discuss DNR or withdrawal of care, Hospice)? DNR status @ -No What co-morbidities impacted this encounter? (DM, HTN, Smoking, COPD, CAD, Cancer, CVA, ARF, Chemo, Hep., AIDS, mental health diagnosis, sleep apnea, morbi d obesity)? @ -CAD Was patient admitted / discharged? Hospital course, mention meds given and route , prescriptions, significant lab abnormalities, going to OR and other pertinent info. @ -Based on the patient's presentation and physical exam, presents emergency department complaining of chest pain. Used video manager web application, #[id number]. Has a history of CAD. Recently here for similar complaints. Chest pain started earlier today. Patient be given 324 mg of aspirin as well as nitro tablet. Patient in agreement this plan. Vital signs within acceptable limits. Patient's chest pain resolved with nitro tablet. EKG shows no signs of acute ischemia. Chest x-ray unremarkable. Labs remarkable for hypokalemia with potassium of 3.0. Patient is hypomagnesemic with a magnesium of 1.5. Troponin is undetectable. Patient has Nitropaste placed. I updated him once again with the video manager web application, #[id number]. He expressed understanding of the workup. He will be admitted to cardiac observation. Cardiology consulted. Spoke with Dr. Escobedo. He expressed understanding was in agreement plan for admission. Undiagnosed new problem with uncertain prognosis? @ -No Drug Therapy requiring intensive monitoring for toxicity (Heparin, Nitro, Insulin, Cardizem)? @ -No Were any procedures done? @ -No Diagnosis/symptom? @ -Chest pain Acute, or Chronic, or Acute on Chronic? @ -Acute Uncomplicated (without systemic symptoms) or Complicated (systemic symptoms)? @ -Complicated Side effects of treatment? @ -No Exacerbation, Progression, or Severe Exacerbation? @ -No Poses a threat to life or bodily function? How? (Chest pain, [place], [place], pneumonia, PE, COPD, DKA, ARF, appy, cholecystitis, CVA, Diverticulitis, Homicidal, Suicidal, threat to staff... and all critical care pts) @ -Potentially, yes - Lab Data Result diagrams: 01/01/24 14:31 01/01/24 14:31 Lab Results 01/01/24 01/01/24 01/01/24 Range/Units 14:31 14:31 14:31 WBC 5.8 (3.8-10.6) k/uL RBC 4.10 L (4.30-5.90) m/uL Hgb 12.8 L (13.0-17.5) gm/dL Hct 39.4 (39.0-53.0) % MCV 96.1 (80.0-100.0) fL MCH 31.1 (25.0-35.0) pg MCHC 32.4 (31.0-37.0) g/dL RDW 14.0 (11.5-15.5) % Plt Count 119 L (150-450) k/uL MPV 8.6 Neutrophils % 79 % Lymphocytes % 14 % Monocytes % 5 % Eosinophils % 1 % Basophils % 1 % Neutrophils # 4.5 (1.3-7.7) k/uL Lymphocytes # 0.8 L (1.0-4.8) k/uL Monocytes # 0.3 (0-1.0) k/uL Eosinophils # 0.1 (0-0.7) k/uL Basophils # 0.0 (0-0.2) k/uL PT 12.4 (10.0-12.5) sec INR 1.2 H (<1.2) APTT 26.6 (22.0-30.0) sec Sodium 141 (137-145) mmol/L Potassium 3.0 L (3.5-5.1) mmol/L Chloride 115 H (98-107) mmol/L Carbon Dioxide 22 (22-30) mmol/L Anion Gap 4 mmol/L BUN 15 (9-20) mg/dL Creatinine 0.53 L (0.66-1.25) mg/dL Est GFR (CKD-EPI)AfAm >90 (>60 ml/min/1.73 sqM) Est GFR (CKD-EPI)NonAf >90 (>60 ml/min/1.73 sqM) Glucose 75 (74-99) mg/dL Calcium 7.0 L (8.4-10.2) mg/dL Magnesium 1.5 L (1.6-2.3) mg/dL Total Bilirubin 0.6 (0.2-1.3) mg/dL AST 20 (17-59) U/L ALT 22 (4-49) U/L Alkaline Phosphatase 101 (38-126) U/L Troponin I (0.000-0.034) ng/mL Total Protein 4.5 L (6.3-8.2) g/dL Albumin 2.5 L (3.5-5.0) g/dL 01/01/24 Range/Units 14:31 WBC (3.8-10.6) k/uL RBC (4.30-5.90) m/uL Hgb (13.0-17.5) gm/dL Hct (39.0-53.0) % MCV (80.0-100.0) fL MCH (25.0-35.0) pg MCHC (31.0-37.0) g/dL RDW (11.5-15.5) % Plt Count (150-450) k/uL MPV Neutrophils % % Lymphocytes % % Monocytes % % Eosinophils % % Basophils % % Neutrophils # (1.3-7.7) k/uL Lymphocytes # (1.0-4.8) k/uL Monocytes # (0-1.0) k/uL Eosinophils # (0-0.7) k/uL Basophils # (0-0.2) k/uL PT (10.0-12.5) sec INR (<1.2) APTT (22.0-30.0) sec Sodium (137-145) mmol/L Potassium (3.5-5.1) mmol/L Chloride (98-107) mmol/L Carbon Dioxide (22-30) mmol/L Anion Gap mmol/L BUN (9-20) mg/dL Creatinine (0.66-1.25) mg/dL Est GFR (CKD-EPI)AfAm (>60 ml/min/1.73 sqM) Est GFR (CKD-EPI)NonAf (>60 ml/min/1.73 sqM) Glucose (74-99) mg/dL Calcium (8.4-10.2) mg/dL Magnesium (1.6-2.3) mg/dL Total Bilirubin (0.2-1.3) mg/dL AST (17-59) U/L ALT (4-49) U/L Alkaline Phosphatase (38-126) U/L Troponin I <0.012 (0.000-0.034) ng/mL Total Protein (6.3-8.2) g/dL Albumin (3.5-5.0) g/dL - EKG Data -: EKG Interpreted by Me EKG Comments: 12-lead Electrocardiogram Interpretation Note EKG was reviewed and interpreted by myself. 12-lead ECG performed at 1252 is interpreted by me as revealing sinus bradycardia at a rate of 58 beats per minute. [place] is normal. DC interval is 155 ms, QRS duration is 101 ms, QTc is 417 ms. There were no ST or T wave abnormalities to suggest myocardial ischemia or injury. R wave progression across the precordium was satisfactory. By my interpretation this EKG is non-diagnostic for acute ischemia. 12-lead Electrocardiogram Interpretation Note EKG was reviewed and interpreted by myself. 12-lead ECG performed at 1516 is interpreted by me as revealing normal sinus rhythm at a rate of 76 beats per minute. [place] is normal. DC interval is 157 ms, QRS duration is 94 ms, QTc is 442 ms.. There were no ST or T wave abnormalities to suggest myocardial ischemia or injury. PVCs present. R wave progression across the precordium was satisfactory. By my interpretation this EKG is non-diagnostic for acute ischemia. Disposition Clinical Impression: Chest pain Disposition: ADMITTED IP TO THIS [facility] Condition: Stable Time of Disposition: 16:12
[2024-01-02 07:27] LABS: Basophils % (A) 1 %; Eosinophils # (A) 0.1 k/uL (0-0.7); Eosinophils % (A) 2 %; HCT 44.6 % (39.0-53.0); HGB 14.4 gm/dL (13.0-17.5); Lymphocytes # (A) 1.3 k/uL (1.0-4.8); Lymphocytes % (A) 23 %; MCH 30.9 pg (25.0-35.0); MCHC 32.2 g/dL (31.0-37.0); MCV 95.8 fL (80.0-100.0); Mean Platelet Volume 8.6; Monocytes # (A) 0.3 k/uL (0-1.0); Monocytes % (A) 6 %; Neutrophils # (A) 3.7 k/uL (1.3-7.7); Neutrophils % (A) 67 %; Platelet Count 154 k/uL (150-450); RBC 4.66 m/uL (4.30-5.90); RDW 14.1 % (11.5-15.5); WBC 5.6 k/uL (3.8-10.6)
[2024-01-02 07:56] LABS: ALT 23 U/L (4-49); AST 21 U/L (17-59); African American GFR (CKD) >90 (>60 ml/min/1.73 sqM); Albumin/Globulin Ratio 1.4; Alkaline Phosphatase 99 U/L (38-126); Anion Gap 3 mmol/L; Blood Urea Nitrogen 15 mg/dL (9-20); Calcium 8.7 mg/dL (8.4-10.2); Carbon Dioxide 27 mmol/L (22-30); Chloride 109 mmol/L (98-107); Globulin 2.2 g/dL; Glucose 87 mg/dL (74-99); Non-African American GFR(CKD) >90 (>60 ml/min/1.73 sqM); Potassium 4.1 mmol/L (3.5-5.1); Sodium 139 mmol/L (137-145); Total Bilirubin 0.9 mg/dL (0.2-1.3); Total Protein 5.2 g/dL (6.3-8.2)
[2024-01-02] MEDS: ACETAMINOPHEN TAB 325 MG TAB PO PRN (08:14)
[2024-01-02] MEDS: ONDANSETRON 4 MG/2 ML VIAL IVP PRN (08:15)
[2024-01-02] MEDS ORDERED: oxyCODONE-APAP 5-325MG 1 EACH TAB PO PRN (11:11)
[2024-01-02] MEDS: METOPROLOL TARTRATE 25 MG TAB PO SCH (11:36)
[2024-01-02] MEDS: PANTOPRAZOLE 40 MG TABLET PO SCH (11:36)
[2024-01-02] MEDS: APIXABAN 5 MG TAB PO SCH (11:36)
--- NOTE | 2024-01-02 12:37 | P.CRDCN ---
History of Present Illness Consult date: 01/02/24 History of present illness: This is a 78-year-old gentleman with a past medical history significant for CAD with prior stenting of the RCA as well as hypertension and dyslipidemia and ascending aortic dilatation and infrarenal abdominal aortic aneurysm and history of DVT who was admitted to the hospital with chest discomfort. The patient was seen by our service recently where he came in with chest discomfort at that point and he was ruled out for acute coronary event. He underwent further evaluation including echo revealed normal biventricular systolic function with moderate aortic insufficiency and also he underwent dobutamine stress echocardiogram came in to be unremarkable. He was discharged in stable medical condition. He came in again complaining of chest discomfort. Discomfort is in the middle of the chest with no radiation to the arms or neck or shoulders or back associated with sweating. It was exertional related. No dizziness or lightheadedness and no presyncope or syncope. EKG showed sinus mechanism with no ischemic changes and the troponin came in to be unremarkable. The chest x- ray did not show any acute abnormalities. Currently his chest pain-free. The examination is remarkable for regular rhythm with a systolic and diastolic murmur at the right upper sternal border and clear breathing sounds bilaterally and no edema was noted in the lower extremities Assessment Chest discomfort concerning for angina CAD as described above Multiple comorbid conditions including hypertension and dyslipidemia and history of DVT Valvular heart disease with aortic insufficiency Plan DC Eliquis and start the patient on IV heparin Continue the current medical regimen Plan for a heart catheterization this coming Thursday with Dr. Marrero Past Medical History Past Medical History: Deep Vein Thrombosis (DVT), GERD/Reflux Additional Past Medical History / Comment(s): compression fracture of lumbar spine, home O2 sometimes, hx stomach ulcer, severe acid reflux, "was told from previous Dr that diaphragm may have previously ruptured and is not working properly", constipation, "when I eat greasy,fatty or fried food it hard to digest it", feels heavy feeling after eating, enlarged prostate,PE 2022 History of Any Multi-Drug Resistant Organisms: None Reported Past Surgical History: Hernia Repair, Prostate Surgery Additional Past Surgical History / Comment(s): rectal fistula surgery, keegan cataract surgery,cementing of the vertebrae in the back,TURP,endoscopy procedures,heart cath x2, Kyphoplasty. Past Anesthesia/Blood Transfusion Reactions: No Reported Reaction Additional Past Anesthesia/Blood Transfusion Reaction / Comment(s): no hx blood transfsuion. No probles with Anesthesia has had general anesthesia w/out complications r/t diaphragm Past Psychological History: No Psychological Hx Reported Smoking Status: Never smoker Past Alcohol Use History: None Reported Additional Past Alcohol Use History / Comment(s): quit smoking 1986 Past Drug Use History: None Reported - Past Family History Mother Family Medical History: Cancer Medications and Allergies Home Medications Medication Instructions Recorded Confirmed Type Docusate Sodium [Dok] 100 mg PO DAILY PRN 12/20/19 01/01/24 History Atorvastatin [Lipitor] 80 mg PO HS #90 tab 03/28/22 01/01/24 Rx Metoprolol Tartrate [Lopressor] 25 mg PO BID #180 tab 03/28/22 01/01/24 Rx Linaclotide [Linzess] 290 mcg PO DAILY 04/22/22 01/01/24 History Apixaban [Eliquis] 5 mg PO BID tab 04/28/22 01/01/24 Rx Ergocalciferol [Vitamin D2 (1250 1,250 mcg PO WEEKLY 10/27/23 01/01/24 History Mcg = 71031 Iu)] Furosemide [Lasix] 20 mg PO DAILY 10/27/23 01/01/24 History oxyCODONE-APAP 5-325MG [Percocet 1 tab PO TID PRN 10/27/23 01/01/24 History 5-325 mg] Alendronate Sodium [Fosamax] 70 mg PO WEEKLY 12/28/23 01/01/24 History Famotidine [Pepcid] 40 mg PO HS 12/28/23 01/01/24 History Ferrous Sulfate [Iron] 325 mg PO DAILY 12/28/23 01/01/24 History Pantoprazole Sodium [Protonix] 40 mg PO AC-BID 12/28/23 01/01/24 History Pramipexole [Mirapex] 1 mg PO HS 12/28/23 01/01/24 History Allergies Allergy/AdvReac Type Severity Reaction Status Date / Time No Known Allergies Allergy Verified 01/01/24 16:46 Physical Exam Vitals: Vital Signs Temp Pulse Pulse Resp BP BP BP 01/02/24 11:38 61 118/65 01/02/24 08:00 59 L 01/02/24 07:00 98.5 F 65 16 106/64 01/02/24 05:36 98.5 F 59 L 16 98/58 01/02/24 02:00 98.2 F 60 16 101/65 01/01/24 20:50 98.9 F 87 18 100/62 01/01/24 20:13 94 18 112/81 01/01/24 20:00 93 16 99/77 01/01/24 18:00 98 18 107/70 01/01/24 14:44 71 18 102/75 01/01/24 12:40 97.4 F L 64 22 151/90 Pulse Ox 01/02/24 11:38 01/02/24 08:00 01/02/24 07:00 97 01/02/24 05:36 96 01/02/24 02:00 96 01/01/24 20:50 95 01/01/24 20:13 97 01/01/24 20:00 98 01/01/24 18:00 98 01/01/24 14:44 01/01/24 12:40 97 Intake and Output 01/01/24 01/02/24 01/02/24 22:59 06:59 14:59 Other: # Voids 1 1 Weight 69.853 kg Results 01/02/24 07:07 01/02/24 07:07 Cardiac Enzymes 01/01/24 01/01/24 01/01/24 Range/Units 14:31 14:31 17:26 AST 20 (17-59) U/L Troponin I <0.012 <0.012 (0.000-0.034) ng/mL 01/01/24 01/02/24 Range/Units 20:13 07:07 AST 21 (17-59) U/L Troponin I <0.012 (0.000-0.034) ng/mL Coagulation 01/01/24 Range/Units 14:31 PT 12.4 (10.0-12.5) sec APTT 26.6 (22.0-30.0) sec CBC 01/01/24 01/02/24 Range/Units 14:31 07:07 WBC 5.8 5.6 (3.8-10.6) k/uL RBC 4.10 L 4.66 (4.30-5.90) m/uL Hgb 12.8 L 14.4 (13.0-17.5) gm/dL Hct 39.4 44.6 (39.0-53.0) % Plt Count 119 L 154 (150-450) k/uL Comprehensive Metabolic Panel 01/01/24 01/02/24 Range/Units 14:31 07:07 Sodium 141 139 (137-145) mmol/L Potassium 3.0 L 4.1 (3.5-5.1) mmol/L Chloride 115 H 109 H (98-107) mmol/L Carbon Dioxide 22 27 (22-30) mmol/L BUN 15 15 (9-20) mg/dL Creatinine 0.53 L 0.68 (0.66-1.25) mg/dL Glucose 75 87 (74-99) mg/dL Calcium 7.0 L 8.7 (8.4-10.2) mg/dL AST 20 21 (17-59) U/L ALT 22 23 (4-49) U/L Alkaline Phosphatase 101 99 (38-126) U/L Total Protein 4.5 L 5.2 L (6.3-8.2) g/dL Albumin 2.5 L 3.0 L (3.5-5.0) g/dL Current Medications Generic Name Dose Route Start Last Admin Trade Name Freq PRN Reason Stop Dose Admin Acetaminophen 650 mg 01/02/24 07:48 01/02/24 08:14 Acetaminophen Tab 325 Mg Tab PO 650 mg Q6HR PRN Administration Fever and/ or Mild Pain Apixaban 5 mg 01/02/24 11:30 01/02/24 11:36 Apixaban 5 Mg Tab PO 5 mg BID [facility] Administration Protocol Atorvastatin Calcium 80 mg 01/02/24 21:00 Atorvastatin 80 Mg Tab PO HS [facility] Docusate Sodium 100 mg 01/02/24 11:11 Docusate 100 Mg Cap PO DAILY PRN Constipation Ergocalciferol 1,250 mcg 01/04/24 09:00 Ergocalciferol 1,250 Mcg (50,000 Iu) Capsule PO WEEKLY [facility] Famotidine 40 mg 01/02/24 21:00 Famotidine 20 Mg Tab PO HS [facility] Ferrous Sulfate 325 mg 01/03/24 09:00 Ferrous Sulfate 325 Mg Tab PO DAILY [facility] Furosemide 20 mg 01/03/24 09:00 Furosemide 20 Mg Tab PO DAILY [facility] Metoprolol Tartrate 25 mg 01/02/24 11:30 01/02/24 11:36 Metoprolol Tartrate 25 Mg Tab PO 25 mg BID [facility] Administration Naloxone HCl 0.2 mg 01/01/24 16:12 Naloxone 0.4 Mg/Ml 1 Ml Vial IV Q2M PRN Opioid Reversal Nitroglycerin 0.5 inch 01/01/24 16:00 01/02/24 07:36 Nitroglycerin Oint 1 Inch/Gm Packet TOPICAL Not Given Q8HR [facility] Linaclotide [Linzess 290 mcg 01/03/24 09:00 ] 290 Mcg Capsule PO DAILY [facility] Ondansetron HCl 4 mg 01/02/24 07:48 01/02/24 08:15 Ondansetron 4 Mg/2 Ml Vial IVP 4 mg Q6HR PRN Administration Nausea And Vomiting Oxycodone/Acetaminophen 1 each 01/02/24 11:11 Oxycodone-Apap 5-325mg 1 Each Tab PO TID PRN Pain Pantoprazole Sodium 40 mg 01/02/24 11:30 01/02/24 11:36 Pantoprazole 40 Mg Tablet PO 40 mg AC-BID [facility] Administration Pramipexole Dihydrochloride 1 mg 01/02/24 21:00 Pramipexole 1 Mg Tab PO HS [facility] Intake and Output 01/01/24 01/02/24 01/02/24 22:59 06:59 14:59 Other: # Voids 1 1 Weight 69.853 kg 01/02/24 07:07 01/02/24 07:07
[2024-01-02] MEDS: HEPARIN SOD,PORK IN 0.45% NACL 25,000 UNIT in 0.45% NACL 1 250ML.BAG IV SCH (13:28)
[2024-01-02] MEDS: HEPARIN SODIUM 1,000 UN/ML (10ML VL) IV ONE (13:29)
--- NOTE | 2024-01-02 13:47 | P.HPIM ---
History of Present Illness H&P Date: 01/02/24 Paco Jacobo, is a 78-year-old male who presented to [facility] emergency room, with a chief complaint of chest pain, he was recently discharged from the hospital after presenting with similar complaints, at that time he was evaluated by cardiology and was discharged home, he returned to the hospital with a new episode of chest pain. He was evaluated in the emergency room vital examination on presentation revealed a temperature of 97.4 pulse 64 respiration 22 blood pressure 151/90 pulse ox 97% on room air Laboratory data revealed a white blood count of 5.8 hemoglobin 12.8 platelet count 119 sodium 141 potassium 3.0 BUN 15 creatinine 0.53 troponin 0.012 magnesium 1.5 Testing in the emergency room revealed EKG revealed sinus rhythm with frequent PVCs, chest x-ray revealed no evidence for acute pulmonary disease Patient was admitted to medical floor for further evaluation and treatment Past Medical History Past Medical History: Deep Vein Thrombosis (DVT), GERD/Reflux Additional Past Medical History / Comment(s): compression fracture of lumbar spine, home O2 sometimes, hx stomach ulcer, severe acid reflux, "was told from previous Dr that diaphragm may have previously ruptured and is not working properly", constipation, "when I eat greasy,fatty or fried food it hard to digest it", feels heavy feeling after eating, enlarged prostate,PE 2022 History of Any Multi-Drug Resistant Organisms: None Reported Past Surgical History: Hernia Repair, Prostate Surgery Additional Past Surgical History / Comment(s): rectal fistula surgery, keegan cataract surgery,cementing of the vertebrae in the back,TURP,endoscopy procedures,heart cath x2, Kyphoplasty. Past Anesthesia/Blood Transfusion Reactions: No Reported Reaction Additional Past Anesthesia/Blood Transfusion Reaction / Comment(s): no hx blood transfsuion. No probles with Anesthesia has had general anesthesia w/out complications r/t diaphragm Past Psychological History: No Psychological Hx Reported Smoking Status: Never smoker Past Alcohol Use History: None Reported Additional Past Alcohol Use History / Comment(s): quit smoking 1986 Past Drug Use History: None Reported - Past Family History Mother Family Medical History: Cancer Medications and Allergies Home Medications Medication Instructions Recorded Confirmed Type Docusate Sodium [Dok] 100 mg PO DAILY PRN 12/20/19 01/01/24 History Atorvastatin [Lipitor] 80 mg PO HS #90 tab 03/28/22 01/01/24 Rx Metoprolol Tartrate [Lopressor] 25 mg PO BID #180 tab 03/28/22 01/01/24 Rx Linaclotide [Linzess] 290 mcg PO DAILY 04/22/22 01/01/24 History Apixaban [Eliquis] 5 mg PO BID tab 04/28/22 01/01/24 Rx Ergocalciferol [Vitamin D2 (1250 1,250 mcg PO WEEKLY 10/27/23 01/01/24 History Mcg = 56348 Iu)] Furosemide [Lasix] 20 mg PO DAILY 10/27/23 01/01/24 History oxyCODONE-APAP 5-325MG [Percocet 1 tab PO TID PRN 10/27/23 01/01/24 History 5-325 mg] Alendronate Sodium [Fosamax] 70 mg PO WEEKLY 12/28/23 01/01/24 History Famotidine [Pepcid] 40 mg PO HS 12/28/23 01/01/24 History Ferrous Sulfate [Iron] 325 mg PO DAILY 12/28/23 01/01/24 History Pantoprazole Sodium [Protonix] 40 mg PO AC-BID 12/28/23 01/01/24 History Pramipexole [Mirapex] 1 mg PO HS 12/28/23 01/01/24 History Allergies Allergy/AdvReac Type Severity Reaction Status Date / Time No Known Allergies Allergy Verified 01/01/24 16:46 Physical Exam Vitals: Vital Signs Temp Pulse Pulse Resp BP BP BP 01/02/24 07:00 98.5 F 65 16 106/64 01/02/24 05:36 98.5 F 59 L 16 98/58 01/02/24 02:00 98.2 F 60 16 101/65 01/01/24 20:50 98.9 F 87 18 100/62 01/01/24 20:13 94 18 112/81 01/01/24 20:00 93 16 99/77 01/01/24 18:00 98 18 107/70 01/01/24 14:44 71 18 102/75 01/01/24 12:40 97.4 F L 64 22 151/90 Pulse Ox 01/02/24 07:00 97 01/02/24 05:36 96 01/02/24 02:00 96 01/01/24 20:50 95 01/01/24 20:13 97 01/01/24 20:00 98 01/01/24 18:00 98 01/01/24 14:44 01/01/24 12:40 97 Intake and Output 01/01/24 01/02/24 01/02/24 22:59 06:59 14:59 Other: # Voids 1 1 Weight 69.853 kg In general patient is alert and oriented x 3 in no distress HEENT head normocephalic and atraumatic Neck is supple no JVD no goiter no lymphadenopathy no carotid bruit Chest examination is clear to auscultation no crackles no wheezing Cardiac exam reveals regular heart sounds S1 and S2 no gallops no murmurs Abdomen is soft nontender no organomegaly with normal bowel sounds Extremity exam reveals no edema no cyanosis or clubbing Neurological examination reveals no gross focal deficits Results CBC & Chem 7: 01/02/24 07:07 01/02/24 07:07 Labs: Abnormal Lab Results - Last 24 Hours (Table) 01/01/24 01/01/24 01/01/24 Range/Units 14:31 14:31 14:31 RBC 4.10 L (4.30-5.90) m/uL Hgb 12.8 L (13.0-17.5) gm/dL Plt Count 119 L (150-450) k/uL Lymphocytes # 0.8 L (1.0-4.8) k/uL INR 1.2 H (<1.2) Potassium 3.0 L (3.5-5.1) mmol/L Chloride 115 H (98-107) mmol/L Creatinine 0.53 L (0.66-1.25) mg/dL Calcium 7.0 L (8.4-10.2) mg/dL Magnesium 1.5 L (1.6-2.3) mg/dL Total Protein 4.5 L (6.3-8.2) g/dL Albumin 2.5 L (3.5-5.0) g/dL 01/02/24 Range/Units 07:07 RBC (4.30-5.90) m/uL Hgb (13.0-17.5) gm/dL Plt Count (150-450) k/uL Lymphocytes # (1.0-4.8) k/uL INR (<1.2) Potassium (3.5-5.1) mmol/L Chloride 109 H (98-107) mmol/L Creatinine (0.66-1.25) mg/dL Calcium (8.4-10.2) mg/dL Magnesium (1.6-2.3) mg/dL Total Protein 5.2 L (6.3-8.2) g/dL Albumin 3.0 L (3.5-5.0) g/dL Thrombosis Risk Factor Assmnt - Choose All That Apply Any of the Below Risk Factors Present?: No Other Risk Factors: Yes Each Risk Factor Represents 3 Points: Age 75 years or older Other congenital or acquired thrombophilia - If yes, enter type in comment: No Thrombosis Risk Factor Assessment Total Risk Factor Score: 3 Thrombosis Risk Factor Assessment Level: Moderate Risk Assessment and Plan Plan: Recurrent episodes of chest pain Recent admission with chest pain patient was discharged a few days ago, during that admission patient underwent dobutamine echo stress test which was negative, he also underwent CT angiogram of the chest which was negative for pulmonary embolism. Known history of coronary artery disease with history of angioplasty and stent placement in the past Underlying history of hypertension Underlying history of hyperlipidemia Underlying history of osteoarthritis Underlying history of osteoporosis Previous history of pulmonary embolism Underlying history of abdominal aortic aneurysm At this time patient was seen and examined Home medications reviewed and reordered Serial EKG and cardiac enzymes ordered Cardiology consultation requested Will follow closely
[2024-01-02 13:56] LABS: Basophils % (A) 1 %; Eosinophils # (A) 0.1 k/uL (0-0.7); Eosinophils % (A) 2 %; HCT 46.9 % (39.0-53.0); Lymphocytes # (A) 1.1 k/uL (1.0-4.8); Lymphocytes % (A) 23 %; MCH 30.9 pg (25.0-35.0); MCHC 31.9 g/dL (31.0-37.0); MCV 96.7 fL (80.0-100.0); Mean Platelet Volume 8.6; Monocytes # (A) 0.2 k/uL (0-1.0); Monocytes % (A) 5 %; Neutrophils # (A) 3.1 k/uL (1.3-7.7); Neutrophils % (A) 67 %; Platelet Count 139 k/uL (150-450); RBC 4.85 m/uL (4.30-5.90); RDW 14.2 % (11.5-15.5); WBC 4.7 k/uL (3.8-10.6)
[2024-01-02 14:32] LABS: Partial Thromboplastin Time 36.8 sec (22.0-30.0); Prothrombin Time 10.7 sec (10.0-12.5)
[2024-01-02] MEDS: HEPARIN SODIUM 1,000 UN/ML (10ML VL) IV PRN (16:08)
[2024-01-02] MEDS: PRAMIPEXOLE 1 MG TAB PO SCH (21:16)
[2024-01-02] MEDS: ATORVASTATIN 80 MG TAB PO SCH (21:16)
[2024-01-02] MEDS: FAMOTIDINE 20 MG TAB PO SCH (21:16)
[2024-01-03 03:18] LABS: Basophils % (A) 1 %; Eosinophils # (A) 0.1 k/uL (0-0.7); Eosinophils % (A) 2 %; HCT 43.9 % (39.0-53.0); HGB 14.8 gm/dL (13.0-17.5); Lymphocytes # (A) 1.3 k/uL (1.0-4.8); Lymphocytes % (A) 22 %; MCH 32.3 pg (25.0-35.0); MCHC 33.7 g/dL (31.0-37.0); MCV 95.7 fL (80.0-100.0); Mean Platelet Volume 8.8; Monocytes # (A) 0.3 k/uL (0-1.0); Monocytes % (A) 5 %; Neutrophils % (A) 69 %; Platelet Count 141 k/uL (150-450); RBC 4.59 m/uL (4.30-5.90); RDW 14.5 % (11.5-15.5); WBC 5.9 k/uL (3.8-10.6)
[2024-01-03 03:22] LABS: INR 0.9 (<1.2); Prothrombin Time 10.3 sec (10.0-12.5)
[2024-01-03 03:32] LABS: ALT 23 U/L (4-49); AST 22 U/L (17-59); African American GFR (CKD) >90 (>60 ml/min/1.73 sqM); Albumin 3.2 g/dL (3.5-5.0); Albumin/Globulin Ratio 1.5; Alkaline Phosphatase 112 U/L (38-126); Anion Gap 3 mmol/L; Blood Urea Nitrogen 17 mg/dL (9-20); Calcium 8.7 mg/dL (8.4-10.2); Carbon Dioxide 25 mmol/L (22-30); Chloride 108 mmol/L (98-107); Globulin 2.1 g/dL; Glucose 94 mg/dL (74-99); Non-African American GFR(CKD) 88 (>60 ml/min/1.73 sqM); Potassium 3.9 mmol/L (3.5-5.1); Sodium 136 mmol/L (137-145); Total Bilirubin 0.8 mg/dL (0.2-1.3); Total Protein 5.3 g/dL (6.3-8.2)
[2024-01-03] MEDS: FERROUS SULFATE 325 MG TAB PO SCH (09:09)
[2024-01-03] MEDS: FUROSEMIDE 20 MG TAB PO SCH (09:09)
[2024-01-03] MEDS: Linaclotide [Linzess] 290 MCG Capsule PO SCH (09:17)
--- NOTE | 2024-01-03 09:35 | P.PN ---
Subjective Progress Note Date: 01/03/24 Paco Jacobo, is a 78-year-old male who presented to [facility] emergency room, with a chief complaint of chest pain, he was recently discharged from the hospital after presenting with similar complaints, at that time he was evaluated by cardiology and was discharged home, he returned to the hospital with a new episode of chest pain. He was evaluated in the emergency room vital examination on presentation revealed a temperature of 97.4 pulse 64 respiration 22 blood pressure 151/90 pu lse ox 97% on room air Laboratory data revealed a white blood count of 5.8 hemoglobin 12.8 platelet count 119 sodium 141 potassium 3.0 BUN 15 creatinine 0.53 troponin 0.012 magnesium 1.5 Testing in the emergency room revealed EKG revealed sinus rhythm with frequent PVCs, chest x-ray revealed no evidence for acute pulmonary disease Patient was admitted to medical floor for further evaluation and treatment On 01/03/2024 patient is alert and oriented x 3. Patient has been switched to IV heparin and plan for cardiac catheterization tomorrow 01/04/2024 per cardiology services. At this time patient denies chest pain or shortness of breath. Patient denies nausea vomiting or diarrhea. Patient denies any urinary burning or frequency. Current vital signs Temp 98.0, heart 65, respiratory rate 15, blood pressure 115/75 with a pulse ox of 96% on room air Objective - Vital Signs Vital signs: Vital Signs Temp 98.0 F 01/03/24 07:00 Pulse 65 01/03/24 07:00 Resp 15 01/03/24 07:00 BP 115/75 01/03/24 07:00 Pulse Ox 96 01/03/24 07:00 FiO2 Intake & Output 01/02/24 01/03/24 01/03/24 18:59 06:59 18:59 Intake Total 602.499 3528.319 Balance 058.578 2629.319 Intake: Intake, IV Titration 21.095 132.319 Amount Heparin Sod,Pork in 0.45% 21.095 132.319 NaCl 25,000 unit In 0.45 % NaCl 1 250ml.bag @ 12 UNITS/KG/HR 8.382 mls/hr IV .Q24H [facility] Rx#: [id number] Oral 236 1080 Other: # Voids 3 2 # Bowel Movements 1 - Exam In general patient is alert and oriented x 3 in no distress HEENT head normocephalic and atraumatic Neck is supple no JVD no goiter no lymphadenopathy no carotid bruit Chest examination is clear to auscultation no crackles no wheezing Cardiac exam reveals regular heart sounds S1 and S2 no gallops no murmurs Abdomen is soft nontender no organomegaly with normal bowel sounds Extremity exam reveals no edema no cyanosis or clubbing Neurological examination reveals no gross focal deficits - Labs CBC & Chem 7: 01/03/24 02:22 01/03/24 02:22 Labs: Abnormal Lab Results - Last 24 Hours (Table) 01/02/24 01/02/24 01/02/24 Range/Units 07:07 13:35 13:35 Plt Count 139 L (150-450) k/uL APTT 36.8 H (22.0-30.0) sec Sodium (137-145) mmol/L Chloride 109 H (98-107) mmol/L Total Protein 5.2 L (6.3-8.2) g/dL Albumin 3.0 L (3.5-5.0) g/dL 01/02/24 01/03/24 01/03/24 Range/Units 18:58 02:22 02:22 Plt Count (150-450) k/uL APTT 41.0 H 32.0 H (22.0-30.0) sec Sodium 136 L (137-145) mmol/L Chloride 108 H (98-107) mmol/L Total Protein 5.3 L (6.3-8.2) g/dL Albumin 3.2 L (3.5-5.0) g/dL 01/03/24 Range/Units 02:22 Plt Count 141 L (150-450) k/uL APTT (22.0-30.0) sec Sodium (137-145) mmol/L Chloride (98-107) mmol/L Total Protein (6.3-8.2) g/dL Albumin (3.5-5.0) g/dL Assessment and Plan Plan: Recurrent episodes of chest pain Recent admission with chest pain patient was discharged a few days ago, during that admission patient underwent dobutamine echo stress test which was negative, he also underwent CT angiogram of the chest which was negative for pulmonary embolism. Known history of coronary artery disease with history of angioplasty and stent placement in the past Underlying history of hypertension Underlying history of hyperlipidemia Underlying history of osteoarthritis Underlying history of osteoporosis Previous history of pulmonary embolism Underlying history of abdominal aortic aneurysm At this time patient was seen and examined Home medications reviewed and reordered Patient switched to IV heparin per cardiology Plans for cardiac catheterization 01/04/2024 Cardiology consultation requested Will follow closely
[2024-01-03] MEDS ORDERED: NITROGLYCERIN SL TABS 0.4 MG TAB SUBLINGUAL PRN (12:17)
[2024-01-03] MEDS ORDERED: ALPRAZolam 0.25 MG TAB PO PRN (12:17)
[2024-01-03] MEDS ORDERED: ALPRAZolam 0.5 MG TAB PO PRN (12:17)
--- NOTE | 2024-01-03 12:20 | P.PN ---
Subjective Progress Note Date: 01/03/24 This is a 78-year-old gentleman with a past medical history significant for CAD with prior stenting of the RCA as well as hypertension and dyslipidemia and ascending aortic dilatation and infrarenal abdominal aortic aneurysm and history of DVT who was admitted to the hospital with chest discomfort. The patient was seen by our service recently where he came in with chest discomfort at that point and he was ruled out for acute coronary event. He underwent further evaluation including echo revealed normal biventricular systolic function with moderate aortic insufficiency and also he underwent dobutamine stress echocardiogram came in to be unremarkable. He was discharged in stable medical condition. He came in again complaining of chest discomfort. Discomfort is in the middle of the chest with no radiation to the arms or neck or shoulders or back associated with sweating. It was exertional related. No dizziness or lightheadedness and no presyncope or syncope. EKG showed sinus mechanism with no ischemic changes and the troponin came in to be unremarkable. The chest x- ray did not show any acute abnormalities. Currently his chest pain-free. The examination is remarkable for regular rhythm with a systolic and diastolic murmur at the right upper sternal border and clear breathing sounds bilaterally and no edema was noted in the lower extremities January 03, 2024 The patient was seen this morning. He is asymptomatic at this point. Currently he is on heparin IV and Nitropaste. Hemodynamically he is stable with a normal blood pressure. The plan is to pursue with a heart catheterization tomorrow morning unless the patient develop any more episode of chest pain or chest discomfort with examination is remarkable for stable vital signs with regular rate and rhythm and clear breathing sounds bilaterally and no edema was noted in the lower extremities Assessment Chest discomfort concerning for angina CAD as described above Multiple comorbid conditions including hypertension and dyslipidemia and history of DVT Valvular heart disease with aortic insufficiency Plan Due to current medical regimen including the current dose of heparin Proceed with coronary angiogram tomorrow Objective - Vital Signs Vital signs: Vital Signs Temp 98.0 F 01/03/24 07:00 Pulse 65 01/03/24 07:00 Resp 15 01/03/24 07:00 BP 115/75 01/03/24 07:00 Pulse Ox 96 01/03/24 07:00 FiO2 Intake & Output 01/02/24 01/03/24 01/03/24 18:59 06:59 18:59 Intake Total 753.529 1623.319 346 Balance 998.038 0406.319 346 Intake: Intake, IV Titration 21.095 132.319 Amount Heparin Sod,Pork in 0.45% 21.095 132.319 NaCl 25,000 unit In 0.45 % NaCl 1 250ml.bag @ 12 UNITS/KG/HR 8.382 mls/hr IV .Q24H [facility] Rx#: [id number] Oral 236 [id number] 346 Other: # Voids 3 2 # Bowel Movements 1 - Labs CBC & Chem 7: 01/03/24 02:22 01/03/24 02:22 Labs: Abnormal Lab Results - Last 24 Hours (Table) 01/02/24 01/02/24 01/02/24 Range/Units 13:35 13:35 18:58 Plt Count 139 L (150-450) k/uL APTT 36.8 H 41.0 H (22.0-30.0) sec Sodium (137-145) mmol/L Chloride (98-107) mmol/L Total Protein (6.3-8.2) g/dL Albumin (3.5-5.0) g/dL 01/03/24 01/03/24 01/03/24 Range/Units 02:22 02:22 02:22 Plt Count 141 L (150-450) k/uL APTT 32.0 H (22.0-30.0) sec Sodium 136 L (137-145) mmol/L Chloride 108 H (98-107) mmol/L Total Protein 5.3 L (6.3-8.2) g/dL Albumin 3.2 L (3.5-5.0) g/dL
[2024-01-03] MEDS: DOCUSATE 100 MG CAP PO PRN (12:24)
[2024-01-03] MEDS: ASPIRIN 81 MG PO SCH (14:21)
[2024-01-03] MEDS: MORPHINE SULFATE 2 MG/ML SYRINGE IVP STA (15:32)
[2024-01-03] MEDS: NITROGLYCERIN-D5W PMX 50 MG in DEXTROSE/WATER 1 250ML.BAG IV SCH (17:56)
[2024-01-04 06:31] LABS: Basophils % (A) 1 %; Eosinophils # (A) 0.1 k/uL (0-0.7); Eosinophils % (A) 3 %; HCT 44.8 % (39.0-53.0); HGB 14.6 gm/dL (13.0-17.5); Lymphocytes # (A) 1.2 k/uL (1.0-4.8); Lymphocytes % (A) 25 %; MCHC 32.5 g/dL (31.0-37.0); MCV 95.6 fL (80.0-100.0); Mean Platelet Volume 8.7; Monocytes # (A) 0.3 k/uL (0-1.0); Monocytes % (A) 7 %; Neutrophils % (A) 63 %; Platelet Count 148 k/uL (150-450); RBC 4.69 m/uL (4.30-5.90); WBC 4.8 k/uL (3.8-10.6)
[2024-01-04] MEDS: ASPIRIN 325 MG TAB PO ONE (06:38)
[2024-01-04] MEDS: ATORVASTATIN 80 MG TAB PO ONE (06:38)
[2024-01-04] MEDS: ERGOCALCIFEROL 1,250 MCG (50,000 IU) CAPSULE PO SCH (06:39)
[2024-01-04 06:44] LABS: ALT 24 U/L (4-49); AST 22 U/L (17-59); African American GFR (CKD) >90 (>60 ml/min/1.73 sqM); Albumin 3.4 g/dL (3.5-5.0); Alkaline Phosphatase 112 U/L (38-126); Anion Gap 3 mmol/L; Blood Urea Nitrogen 21 mg/dL (9-20); Calcium 8.8 mg/dL (8.4-10.2); Carbon Dioxide 26 mmol/L (22-30); Chloride 106 mmol/L (98-107); Glucose 99 mg/dL (74-99); Non-African American GFR(CKD) 88 (>60 ml/min/1.73 sqM); Potassium 3.6 mmol/L (3.5-5.1); Sodium 135 mmol/L (137-145); Total Protein 5.8 g/dL (6.3-8.2)
[2024-01-04] MEDS ORDERED: VERAPAMIL 2.5 MG/ML 2 ML AMP ONE (07:14)
[2024-01-04] MEDS ORDERED: LIDOCAINE 1% INJ 10MG/ML (20 ML MDV) ONE (07:14)
[2024-01-04] MEDS: LIDOCAINE 1% INJ 10MG/ML (20 ML MDV) SQ ONE (07:43)
[2024-01-04] MEDS: IV FLUID CONTINUATION 500 ML IV ONE (07:43)
[2024-01-04] MEDS: fentaNYL (PF) 50 MCG/ML 2 ML AMP IVP ONE (07:44)
[2024-01-04] MEDS: MIDAZOLAM 2 MG/2 ML VIAL IVP ONE (07:48)
[2024-01-04] MEDS: HEPARIN SODIUM,PORCINE 10,000 UNIT in SODIUM CHLORIDE 0.9% 1,000 ML IRRIGATION PRN (07:53)
[2024-01-04] MEDS: HEPARIN SODIUM,PORCINE (1 ML) 2,500 UNIT in SODIUM CHLORIDE 0.9% 250 ML IRRIGATION PRN (07:53)
[2024-01-04] MEDS: IOPAMIDOL-370 100ML BTL INJ ONE (08:13)
[2024-01-04] MEDS: SODIUM CHLORIDE 0.9% 1,000 ML IV ONE (08:14)
[2024-01-04] MEDS ORDERED: RX INFO: IV CONTRAST WAS GIVEN 1 EACH MISC MISCELLANE PRN (08:17)
--- NOTE | 2024-01-04 08:25 | P.CARDCATH ---
Date of Procedure: 01/04/24 Description of Procedure: Cardiac Catheterization: The patient is a 78-year-old male with a known history of CAD status post stenting of the RCA in 2021 who had recent recurrent admissions with chest discomfort, he had no evidence of acute coronary syndrome and he had a normal dobutamine stress test but has continued to have chest discomfort. He was evaluated by Dr. Hurst. Recommendations were made regarding cardiac catheterization, the risks and the complications were discussed with the patient who is in full understanding and agreement. 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 Using Xylocaine Anesthesia and modified Seldinger technique, and a micropuncture catheter, a 6-[place] sheath was introduced in the right femoral artery . Attempt to cannulate the right radial artery were unsuccessful because of spasm Subsequently, selective coronary angiography was performed using a 6-[place] Citizen 4 bend Macy catheter. Multiple views of the coronary artery including hemiaxial views were obtained. The 6 [place] pigtail catheter was used to cross the aortic valve and LVEDP was calculated. Following that, catheter and sheath were removed. Hemostasis was obtained with deployment of an Angio-Seal. There was no immediate complication. Patient was returned to room in stable condition. Findings: Fluoroscopy: There is calcifications involving all the coronary arteries Left main: This is a large size vessel, bifurcating into LAD and left circumflex, left main has no obstructive disease. LAD: This is a large size vessel, calcified, giving rise to 3 diagonal branch. The mid LAD has an intimal lesion up to 40 to 50% with diffuse disease in the first and the second diagonal branch and no evidence of progression of disease compared to the images performed in 2021 Left circumflex: This is a codominant vessel, bifurcating distally to PDA and PLV giving rise to a proximal obtuse marginal branch that has a 50% plaque with no progression compared to 2022, the rest of the vessel has no high-grade stenosis RCA: This is a codominant vessel giving rise to right PDA, calcified. The stented segment in the proximal and distal RCA are patent with no evidence of significant in-stent restenosis with 10 to 20% plaque. The rest of the vessel has no high-grade stenosis Left Ventriculogram: Not performed Hemodynamics: There was no gradient across aortic valve, LVEDP was 18-22 mmHg Conclusion: 1. Calcified coronary arteries 2. Moderate disease in the mid LAD with no progression compared to 2021 3. Mild to moderate disease in the OM1 with no progression 4. Patent stent in the RCA Recommendations: I have recommended to continue medical therapy with the aggressive coronary risks modifications. There is no significant progression of disease. The findings and the recommendations were discussed with the patient and he was in full understanding and agreement. Duration of sedation is 26 minutes.
[2024-01-04] MEDS: SODIUM CHLORIDE 0.9% 1,000 ML IV SCH (09:33)
[2024-01-04 10:26] VITALS: RESP 16
[2024-01-04] MEDS: ISOSORBIDE MONONITRATE ER 30 MG TAB.ER.24H PO SCH (12:43)
--- NOTE | 2024-01-04 12:49 | P.DS ---
Providers Date of admission: 01/01/24 16:18 Expected date of discharge: 01/04/24 Attending physician: Wilma Escobedo Consults: 01/01/24 16:12 Consult Physician Routine Consulting Provider: [facility] Reason/Comments: chest pain Do you want consulting provider notified?: Yes Primary care physician: Wilma Fanny [facility] Course: Diagnosis on discharge: Recurrent episodes of chest pain Recent admission with chest pain patient was discharged a few days ago, during that admission patient underwent dobutamine echo stress test which was negative, he also underwent CT angiogram of the chest which was negative for pulmonary embolism. Known history of coronary artery disease with history of angioplasty and stent placement in the past Underlying history of hypertension Underlying history of hyperlipidemia Underlying history of osteoarthritis Underlying history of osteoporosis Previous history of pulmonary embolism Underlying history of abdominal aortic aneurysm Hospital course: Paco Jacobo, is a 78-year-old male who presented to [facility] emergency room, with a chief complaint of chest pain, he was recently discharged from the hospital after presenting with similar complaints, at that time he was evaluated by cardiology and was discharged home, he returned to the hospital with a new episode of chest pain. He was evaluated in the emergency room vital examination on presentation revealed a temperature of 97.4 pulse 64 respiration 22 blood pressure 151/90 pulse ox 97% on room air Laboratory data revealed a white blood count of 5.8 hemoglobin 12.8 platelet count 119 sodium 141 potassium 3.0 BUN 15 creatinine 0.53 troponin 0.012 magnesium 1.5 Testing in the emergency room revealed EKG revealed sinus rhythm with frequent PVCs, chest x-ray revealed no evidence for acute pulmonary disease Patient was admitted to medical floor for further evaluation and treatment On 01/03/2024 patient is alert and oriented x 3. Patient has been switched to IV heparin and plan for cardiac catheterization tomorrow 01/04/2024 per cardiology services. At this time patient denies chest pain or shortness of breath. Patient denies nausea vomiting or diarrhea. Patient denies any urinary burning or frequency. Current vital signs Temp 98.0, heart 65, respiratory rate 15, blood pressure 115/75 with a pulse ox of 96% on room air On 01/04/2024 patient was seen and examined on the medical floor, he is alert and oriented x 3 in no apparent distress, he underwent cardiac catheterization this morning with Dr. Marrero, which revealed calcified coronary arteries, moderate disease in the mid LAD with no progression compared to 2021, patent stent in the RCA, and mild to moderate disease in the OM artery with no progression, no intervention was done at this time, recommendation were to continue with aggressive medical management, patient will be discharged to home today, follow- up in the office within 1 week. Patient Condition at Discharge: Stable Plan - Discharge Summary Discharge Rx Participant: No New Discharge Prescriptions: New Aspirin 81 mg PO DAILY 30 Days #30 tab Nitroglycerin Sl Tabs [Nitrostat] 0.4 mg SUBLINGUAL Q5M PRN 30 Days #25 tab PRN Reason: Chest Pain Isosorbide Mononitrate ER [Imdur] 30 mg PO DAILY 30 Days #30 tab Continue Docusate Sodium [Dok] 100 mg PO DAILY PRN PRN Reason: Constipation Metoprolol Tartrate [Lopressor] 25 mg PO BID #180 tab Linaclotide [Linzess] 290 mcg PO DAILY oxyCODONE-APAP 5-325MG [Percocet 5-325 mg] 1 tab PO TID PRN PRN Reason: Pain Pramipexole [Mirapex] 1 mg PO HS Ferrous Sulfate [Iron] 325 mg PO DAILY Atorvastatin [Lipitor] 80 mg PO HS #90 tab Apixaban [Eliquis] 5 mg PO BID tab Ergocalciferol [Vitamin D2 (1250 Mcg = 77747 Iu)] 1,250 mcg PO WEEKLY Furosemide [Lasix] 20 mg PO DAILY Pantoprazole Sodium [Protonix] 40 mg PO AC-BID Alendronate Sodium [Fosamax] 70 mg PO WEEKLY Discontinued Famotidine [Pepcid] 40 mg PO HS Discharge Medication List Docusate Sodium [Dok] 100 mg PO DAILY PRN 12/20/19 [History] Atorvastatin [Lipitor] 80 mg PO HS #90 tab 03/28/22 [Rx] Metoprolol Tartrate [Lopressor] 25 mg PO BID #180 tab 03/28/22 [Rx] Linaclotide [Linzess] 290 mcg PO DAILY 04/22/22 [History] Apixaban [Eliquis] 5 mg PO BID tab 04/28/22 [Rx] Ergocalciferol [Vitamin D2 (1250 Mcg = 24927 Iu)] 1,250 mcg PO WEEKLY 10/27/23 [History] Furosemide [Lasix] 20 mg PO DAILY 10/27/23 [History] oxyCODONE-APAP 5-325MG [Percocet 5-325 mg] 1 tab PO TID PRN 10/27/23 [History] Alendronate Sodium [Fosamax] 70 mg PO WEEKLY 12/28/23 [History] Ferrous Sulfate [Iron] 325 mg PO DAILY 12/28/23 [History] Pantoprazole Sodium [Protonix] 40 mg PO AC-BID 12/28/23 [History] Pramipexole [Mirapex] 1 mg PO HS 12/28/23 [History] Aspirin 81 mg PO DAILY 30 Days #30 tab 01/04/24 [Rx] Isosorbide Mononitrate ER [Imdur] 30 mg PO DAILY 30 Days #30 tab 01/04/24 [Rx] Nitroglycerin Sl Tabs [Nitrostat] 0.4 mg SUBLINGUAL Q5M PRN 30 Days #25 tab 01/04/24 [Rx] Follow up Appointment(s)/Referral(s): Wilma Escobedo MD [Primary Care Provider] - 1 Week
[2024-01-04 13:44] VITALS: BP 112/65; PULSE 58; TEMP 98
== END 2024-01-04 13:40 | disposition home or self-care (01) ==
LOC: MERGE 12:38 → EC 12:38 → 6NMEDSUR 16:18 → 3SCARD 01-03 17:38
PROVIDERS: ADMIT Internal Medicine; ATTEND Internal Medicine
DX: R07.89 Other chest pain (principal); I35.1 Nonrheumatic aortic (valve) insufficiency; I71.43 Infrarenal abdominal aortic aneurysm, without rupture; I25.10 Atherosclerotic heart disease of native coronary artery without angina pectoris; K21.9 Gastro-esophageal reflux disease without esophagitis; I10 Essential (primary) hypertension; E78.5 Hyperlipidemia, unspecified; M19.90 Unspecified osteoarthritis, unspecified site; M81.0 Age-related osteoporosis without current pathological fracture; Z86.711 Personal history of pulmonary embolism; Z86.718 Personal history of other venous thrombosis and embolism; Z87.891 Personal history of nicotine dependence; Z95.5 Presence of coronary angioplasty implant and graft; Z79.01 Long term (current) use of anticoagulants; Z79.83 Long term (current) use of bisphosphonates; Z79.899 Other long term (current) drug therapy
CPT/HCPCS: 96366 ×3; 96367; 96375 ×2; 96368; 96361; 96365; 99285; 36415; 93005; 93458; 80053 ×4; 83735 ×2; 84484; 85025 ×4; 85610 ×3; 85730 ×4; 71046; G0378 ×4; J2250; J1644 ×6; J2405; J2001; J3010; J2270; J3475; Q9967; J2305; 96376

== ENCOUNTER → 2024-01-11 | Outpatient (CLI) | payer MEDICARE, OTHER | LOC: PNWHC3 14:00 | PROVIDERS: ATTEND Specialist | DX: M47.816 Spondylosis without myelopathy or radiculopathy, lumbar region | CPT/HCPCS: 99211 ==

== ENCOUNTER 2024-06-01 12:55 | Observation (INO) | payer MEDICARE, OTHER ==
--- NOTE | 2024-06-01 14:21 | ED ---
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 Mode of arrival: wheelchair Limitations: language barrier - Related Data Home Medications Medication Instructions Recorded Confirmed Docusate Sodium [Dok] 100 mg PO DAILY PRN 12/20/19 06/01/24 Linaclotide [Linzess] 290 mcg PO DAILY 04/22/22 06/01/24 Furosemide [Lasix] 20 mg PO DAILY 10/27/23 06/01/24 Alendronate Sodium [Fosamax] 70 mg PO WEEKLY 12/28/23 06/01/24 Pantoprazole Sodium [Protonix] 40 mg PO BID 12/28/23 06/01/24 Donepezil [Aricept] 5 mg PO DAILY 06/01/24 06/01/24 Ipratropium [place] 0.06%Nasal 2 spr EA NOSTRIL BID 06/01/24 06/01/24 [Atrovent Nasal 0.06%] Lactulose 10 gm PO DIRECTED PRN 06/01/24 06/01/24 Nitroglycerin Sl Tabs [Nitrostat] 0.4 mg SL Q5M PRN 06/01/24 06/01/24 Previous Rx's Medication Instructions Recorded Atorvastatin [Lipitor] 80 mg PO HS #90 tab 03/28/22 Metoprolol Tartrate [Lopressor] 25 mg PO BID #180 tab 03/28/22 Apixaban [Eliquis] 5 mg PO BID tab 04/28/22 Aspirin 81 mg PO DAILY 30 Days #30 tab 01/04/24 Allergies Allergy/AdvReac Type Severity Reaction Status Date / Time No Known Allergies Allergy Verified 06/01/24 17:07 Review of Systems ROS Statement: Those systems with pertinent positive or pertinent negative responses have been documented in the HPI. ROS Other: All systems not noted in ROS Statement are negative. Past Medical History Past Medical History: Deep Vein Thrombosis (DVT), GERD/Reflux Additional Past Medical History / Comment(s): compression fracture of lumbar spine, home O2 sometimes, hx stomach ulcer, severe acid reflux, "was told from previous Dr that diaphragm may have previously ruptured and is not working properly", constipation, "when I eat greasy,fatty or fried food it hard to dige st it", feels heavy feeling after eating, enlarged prostate,PE 2022 History of Any Multi-Drug Resistant Organisms: None Reported Past Surgical History: Hernia Repair, Prostate Surgery Additional Past Surgical History / Comment(s): rectal fistula surgery, keegan cataract surgery,cementing of the vertebrae in the back,TURP,endoscopy procedures,heart cath x2, Kyphoplasty. Past Anesthesia/Blood Transfusion Reactions: No Reported Reaction Additional Past Anesthesia/Blood Transfusion Reaction / Comment(s): no hx blood transfsuion. No probles with Anesthesia has had general anesthesia w/out complications r/t diaphragm Past Psychological History: No Psychological Hx Reported Smoking Status: Never smoker Past Alcohol Use History: None Reported Past Drug Use History: None Reported - Past Family History Mother Family Medical History: Cancer General Exam Limitations: language barrier General appearance: alert, in no apparent distress Head exam: Present: atraumatic, normocephalic, normal inspection Eye exam: Present: normal appearance, PERRL, EOMI. Absent: scleral icterus, conjunctival injection, periorbital swelling ENT exam: Present: normal exam, mucous membranes moist Neck exam: Present: normal inspection. Absent: tenderness, meningismus, lymp hadenopathy Respiratory exam: Present: normal lung sounds bilaterally, chest wall tenderness (Positive reproducible pain with bilateral thoracic squeezing without obvious crepitus or deformity). Absent: respiratory distress, wheezes, rales, rhonchi, stridor Cardiovascular Exam: Present: regular rate, normal rhythm, normal heart sounds. Absent: systolic murmur, diastolic murmur, rubs, gallop, clicks GI/Abdominal exam: Present: soft, normal bowel sounds. Absent: distended, tenderness, guarding, rebound, rigid Extremities exam: Present: normal inspection, full ROM, tenderness (Positive right bilateral olecranon tenderness), normal capillary refill, other (Negative right Phalen's, Tinel's, Sophia). Absent: pedal edema, joint swelling, calf tenderness Back exam: Present: normal inspection Neurological exam: Present: alert, oriented X3, CN II-XII intact Psychiatric exam: Present: normal affect, normal mood Skin exam: Present: warm, dry, intact, normal color. Absent: rash Course Vital Signs 06/01/24 06/01/24 06/01/24 12:58 14:38 17:38 Temperature 98.3 F 97.9 F Pulse Rate 86 56 L 72 Respiratory 20 14 17 Rate Blood Pressure 165/90 122/75 138/79 O2 Sat by Pulse 96 96 95 Oximetry Medical Decision Making - Medical Decision Making Was pt. sent in by a medical professional or institution (RACHEL Andrade, MONONITROTOLUENE OPERATOR, urgent care, hospital, or long term...) When possible be specific @ -[No] Did you speak to anyone other than the patient for history (EMS, parent, family, police, friend...)? What history was obtained from this source @ -[No] Did you review nursing and triage notes (agree or disagree)? Why? @ -[I reviewed and agree with nursing and triage notes] Were old charts reviewed (outside hosp., previous admission, EMS record, old EKG, old radiological studies, urgent care reports/EKG's, long term records)? Report findings @ -[No old charts were reviewed] Differential Diagnosis (chest pain, altered mental status, abdominal pain women, abdominal pain men, vaginal bleeding, weakness, fever, dyspnea, syncope, headache, dizziness, GI bleed, back pain, seizure, CVA, palpatations, mental health, musculoskeletal)? @ -Differential Dizziness: Benign paroxysmal positional Vertigo, Meniere's disease, otitis media, acoustic neuroma, vertebrobasilar insufficiency, cerebellar stroke, encephalitis, hypovolemic, arrhythmia, coronary artery syndrome, anemia, this is not meant to be an all-inclusive list EKG interpreted by me (3pts min.). @ -Sinus bradycardia with occasional PVC. No ST changes or T wave inversion. Ventricular rate is 58 bpm, NAZ 156 ms, QRS duration 98 ms, QTc 449 ms. X-rays interpreted by me (1pt min.). @ -[None done] CT interpreted by me (1pt min.). @ -[None done] U/S interpreted by me (1pt. min.). @ -[None done] What testing was considered but not performed or refused? (CT, X-rays, U/S, labs)? Why? @ -[None] What meds were considered but not given or refused? Why? @ -[None] Did you discuss the management of the patient with other professionals (professionals i.e. RACHEL Andrade, MONONITROTOLUENE OPERATOR, lab, RT, psych nurse, protective services social worker, stoker erector and servicer, t eacher, minesweeping officer, classification case manager)? Give summary @ -[No] Was smoking cessation discussed for >3mins.? @ -[No] Was critical care preformed (if so, how long)? @ -[No] Were there social determinants of health that impacted care today? How? (Homelessness, low income, unemployed, alcoholism, drug addiction, transportation, low edu. Level, literacy, decrease access to med. care, detention, rehab)? @ -[No] Was there de-escalation of care discussed even if they declined (Discuss DNR or withdrawal of care, Hospice)? DNR status @ -[No] What co-morbidities impacted this encounter? (DM, HTN, Smoking, COPD, CAD, Cancer, CVA, ARF, Chemo, Hep., AIDS, mental health diagnosis, sleep apnea, morbid obesity)? @ -[None] Was patient admitted / discharged? Hospital course, mention meds given and route, prescriptions, significant lab abnormalities, going to OR and other pertinent info. @ -[hospital course] Undiagnosed new problem with uncertain prognosis? @ -[No] Drug Therapy requiring intensive monitoring for toxicity (Heparin, Nitro, Insulin, Cardizem)? @ -[No] Were any procedures done? @ -[No] Diagnosis/symptom? @ -[default] Acute, or Chronic, or Acute on Chronic? @ -Acute Uncomplicated (without systemic symptoms) or Complicated (systemic symptoms)? @ -Complicated Side effects of treatment? @ -[No] Exacerbation, Progression, or Severe Exacerbation? @ -[No] Poses a threat to life or bodily function? How? (Chest pain, USA, AR, pneumonia, PE, COPD, DKA, ARF, appy, cholecystitis, CVA, Diverticulitis, Homicidal, Suicidal, threat to staff... and all critical care pts) @ -[No] - Lab Data Result diagrams: 06/01/24 14:53 06/01/24 14:53 Lab Results 06/01/24 06/01/24 06/01/24 Range/Units 14:53 14:53 14:53 WBC 6.4 (3.8-10.6) k/uL RBC 5.47 (4.30-5.90) m/uL Hgb 16.2 (13.0-17.5) gm/dL Hct 50.1 (39.0-53.0) % MCV 91.6 (80.0-100.0) fL MCH 29.7 (25.0-35.0) pg MCHC 32.4 (31.0-37.0) g/dL RDW 13.0 (11.5-15.5) % Plt Count 123 L (150-450) k/uL MPV 9.7 Neutrophils % 61 % Lymphocytes % 26 % Monocytes % 7 % Eosinophils % 4 % Basophils % 1 % Neutrophils # 3.9 (1.3-7.7) k/uL Lymphocytes # 1.7 (1.0-4.8) k/uL Monocytes # 0.5 (0-1.0) k/uL Eosinophils # 0.2 (0-0.7) k/uL Basophils # 0.1 (0-0.2) k/uL PT 10.4 (10.0-12.5) sec INR 0.9 (<1.2) APTT 22.5 (22.0-30.0) sec D-Dimer 2.09 H (<0.60) mg/L FEU Sodium 138 (137-145) mmol/L Potassium 3.9 (3.5-5.1) mmol/L Chloride 107 (98-107) mmol/L Carbon Dioxide 25 (22-30) mmol/L Anion Gap 6 mmol/L BUN 18 (9-20) mg/dL Creatinine 0.85 (0.66-1.25) mg/dL Est GFR (CKD-EPI)AfAm >90 (>60 ml/min/1.73 sqM) Est GFR (CKD-EPI)NonAf 84 (>60 ml/min/1.73 sqM) Glucose 91 (74-99) mg/dL Plasma Lactic Acid Bonifacio (0.7-2.0) mmol/L Calcium 9.0 (8.4-10.2) mg/dL Phosphorus 3.9 (2.5-4.5) mg/dL Magnesium 2.1 (1.6-2.3) mg/dL Total Bilirubin 1.1 (0.2-1.3) mg/dL AST 26 (17-59) U/L ALT 26 (4-49) U/L Alkaline Phosphatase 145 H (38-126) U/L Troponin I (0.000-0.034) ng/mL NT-Pro-B Natriuret Pep 350 pg/mL Total Protein 6.0 L (6.3-8.2) g/dL Albumin 3.8 (3.5-5.0) g/dL 06/01/24 06/01/24 Range/Units 14:53 14:53 WBC (3.8-10.6) k/uL RBC (4.30-5.90) m/uL Hgb (13.0-17.5) gm/dL Hct (39.0-53.0) % MCV (80.0-100.0) fL MCH (25.0-35.0) pg MCHC (31.0-37.0) g/dL RDW (11.5-15.5) % Plt Count (150-450) k/uL MPV Neutrophils % % Lymphocytes % % Monocytes % % Eosinophils % % Basophils % % Neutrophils # (1.3-7.7) k/uL Lymphocytes # (1.0-4.8) k/uL Monocytes # (0-1.0) k/uL Eosinophils # (0-0.7) k/uL Basophils # (0-0.2) k/uL PT (10.0-12.5) sec INR (<1.2) APTT (22.0-30.0) sec D-Dimer (<0.60) mg/L FEU Sodium (137-145) mmol/L Potassium (3.5-5.1) mmol/L Chloride (98-107) mmol/L Carbon Dioxide (22-30) mmol/L Anion Gap mmol/L BUN (9-20) mg/dL Creatinine (0.66-1.25) mg/dL Est GFR (CKD-EPI)AfAm (>60 ml/min/1.73 sqM) Est GFR (CKD-EPI)NonAf (>60 ml/min/1.73 sqM) Glucose (74-99) mg/dL Plasma Lactic Acid [place] 1.1 (0.7-2.0) mmol/L Calcium (8.4-10.2) mg/dL Phosphorus (2.5-4.5) mg/dL Magnesium (1.6-2.3) mg/dL Total Bilirubin (0.2-1.3) mg/dL AST (17-59) U/L ALT (4-49) U/L Alkaline Phosphatase (38-126) U/L Troponin I <0.012 (0.000-0.034) ng/mL NT-Pro-B Natriuret Pep pg/mL Total Protein (6.3-8.2) g/dL Albumin (3.5-5.0) g/dL Disposition Clinical Impression: Elevated d-dimer Disposition: HOME SELF-CARE Condition: Good Is patient prescribed a controlled substance at d/c from ED?: No Referrals: Wilma Escobedo MD [Primary Care Provider] - 1-2 days Time of Disposition: 21:04
--- NOTE | 2024-06-01 14:35 | XR ---
EXAMINATION TYPE: XR elbow limited RT DATE OF EXAM: 06/01/2024 2:30 PM COMPARISON: None. CLINICAL INDICATION: Male, 78 years old with history of Elbow TTP, distal paresthesia/weakness; H TECHNIQUE: XR elbow limited RT; elbow was examined in AP, lateral, and oblique projections. FINDINGS: No evidence of any acute osseous pathology, joint dislocation, or soft tissue swelling is n oted. No evidence of joint effusion is present. IMPRESSION: No evidence of acute fracture. [facility], , 06/01/2024 2:33 PM
--- NOTE | 2024-06-01 14:38 | XR ---
EXAMINATION TYPE: XR ribs bilateral, XR chest 2V DATE OF EXAM: 06/01/2024 2:30 PM COMPARISON: Multiple prior chest radiographs, most recently dated 01/01/2024. CLINICAL INDICATION: Male, 78 years old with history of Rib pain, TTP; PHH TECHNIQUE: XR ribs bilateral, XR chest 2V; Frontal and oblique views of the ribs with frontal chest r adiograph. FINDINGS: Low lung volumes. Small right and trace left pleural effusions. Mild pulmonary vascular congestive changes or interstit ial prominence. No obvious acute displaced rib fracture. No evidence of pneumothorax. Vertebral augme ntation noted at multiple levels in the partially visualized lumbar spine. Questionable old healed fr acture deformity of the left 10thZ lateral rib. IMPRESSION: 1. Possible small bilateral pleural effusions and pulmonary congestion versus technique-related fact ors. 2. No acute displaced rib fracture or other acute osseous rib lesion identified. [facility], , 06/01/2024 2:36 PM
[2024-06-01] MEDS: ONDANSETRON 4 MG/2 ML VIAL IVP STA (14:46)
[2024-06-01 15:03] LABS: Basophils # (A) 0.1 k/uL (0-0.2); Basophils % (A) 1 %; Eosinophils # (A) 0.2 k/uL (0-0.7); Eosinophils % (A) 4 %; HCT 50.1 % (39.0-53.0); HGB 16.2 gm/dL (13.0-17.5); Lymphocytes # (A) 1.7 k/uL (1.0-4.8); Lymphocytes % (A) 26 %; MCH 29.7 pg (25.0-35.0); MCHC 32.4 g/dL (31.0-37.0); MCV 91.6 fL (80.0-100.0); Mean Platelet Volume 9.7; Monocytes # (A) 0.5 k/uL (0-1.0); Monocytes % (A) 7 %; Neutrophils # (A) 3.9 k/uL (1.3-7.7); Neutrophils % (A) 61 %; Platelet Count 123 k/uL (150-450); RBC 5.47 m/uL (4.30-5.90); WBC 6.4 k/uL (3.8-10.6)
[2024-06-01 15:15] LABS: ALT 26 U/L (4-49); AST 26 U/L (17-59); African American GFR (CKD) >90 (>60 ml/min/1.73 sqM); Albumin 3.8 g/dL (3.5-5.0); Alkaline Phosphatase 145 U/L (38-126); Anion Gap 6 mmol/L; Blood Urea Nitrogen 18 mg/dL (9-20); Carbon Dioxide 25 mmol/L (22-30); Chloride 107 mmol/L (98-107); Glucose 91 mg/dL (74-99); Magnesium 2.1 mg/dL (1.6-2.3); Non-African American GFR(CKD) 84 (>60 ml/min/1.73 sqM); Phosphorus 3.9 mg/dL (2.5-4.5); Potassium 3.9 mmol/L (3.5-5.1); Sodium 138 mmol/L (137-145); Total Bilirubin 1.1 mg/dL (0.2-1.3)
[2024-06-01 15:24] LABS: NT-Pro-B-Type Natriuretic Pept 350 pg/mL
[2024-06-01 15:34] LABS: INR 0.9 (<1.2)
[2024-06-01 15:35] LABS: Partial Thromboplastin Time 22.5 sec (22.0-30.0); Prothrombin Time 10.4 sec (10.0-12.5)
--- NOTE | 2024-06-01 16:31 | CT ---
EXAMINATION TYPE: CT brain wo con DATE OF EXAM: 06/01/2024 4:25 PM COMPARISON: Previous CT study dated 03/13/2022. CLINICAL INDICATION: Male, 78 years old with history of Dizziness, RUE paresthesia, Bilateral upper a nd lower extremity weakness and numbness TECHNIQUE: Brain: Axial CT images of the brain were obtained with coronal and sagittal reformats created and rev iewed. Contrast used: None. Oral contrast used: None. CT DLP: combined 2086.8 mGycm, Automated exposure control for dose reduction was used. FINDINGS: Brain: No acute intracranial hemorrhage, midline shift or significant mass effect. Basal cisterns appear pat ent. No sizable extra-axial fluid collection. Ventricles and sulci are prominent compatible with gene ralized volume loss. Patchy periventricular and subcortical white matter hypoattenuation likely refle cting chronic microvascular ischemic disease. No depressed calvarial fracture. Paranasal sinuses and mastoid air cells appear patent. No large scalp hematoma. IMPRESSION: No acute intracranial process. [facility], , 06/01/2024 4:29 PM
--- NOTE | 2024-06-01 16:37 | CT ---
EXAMINATION TYPE: CT angio chest DATE OF EXAM: 06/01/2024 4:25 PM COMPARISON: Previous CT study 12/26/2023. CLINICAL INDICATION: Male, 78 years old with history of Reproducible chest pain, dizzy, elevated D-di jona; TECHNIQUE/CONTRAST: FINDINGS: Pulmonary Artery: There is no evidence for a filling defect within the pulmonary vasculature to sugge st acute pulmonary embolism. The pulmonary artery is of normal size. Lungs/Pleura: No evidence of focal consolidation, pleural effusion or pneumothorax. Right middle lobe 5 mm fissural nodule, stable from prior study. Airway: Large airways are patent. Heart: Cardiomegaly and coronary artery medications. Vasculature: Calcified atherosclerotic disease and mild dilatation of the ascending thoracic aorta me asuring up to 4.0 cm diameter at the level of the right pulmonary artery. Mediastinum: No gross evidence of adenopathy. Musculoskeletal: No acute osseous abnormalities. Moderate stable chronic compression deformity involv ing the T11 vertebral body. Osseous structures demineralized. Soft Tissues/lymph nodes: Unremarkable. Lower neck: No significant findings. Upper Abdomen: No significant acute findings. Moderate-sized hiatal hernia. IMPRESSION: 1. No evidence of acute pulmonary embolism or acute pulmonary pathology. 2. Cardiomegaly and coronary artery calcifications. 3. Mildly dilated descending thoracic aorta measuring 4.0 cm in diameter. 4. Moderate sized hiatal hernia. [facility], , 06/01/2024 4:35 PM
--- NOTE | 2024-06-01 17:13 | CT ---
EXAMINATION TYPE: CT angio head neck DATE OF EXAM: 06/01/2024 4:38 PM COMPARISON: Previous study 12 11/16/2021. CLINICAL INDICATION: Male, 78 years old with history of Dizziness, RUE paresthesia; PHH, Bilateral up per and lower extremity weakness TECHNIQUE: Axially acquired helical CT angiogram of the head and neck was obtained with contrast. Axi al images are supplemented with 3D reconstructions and MIP images which were post-processed at an in dependent workstation. NASCET criteria used. Contrast used:65 mL of Isovue 370 without and with IV Contrast, Oral contrast used: None. CT DLP: combined 2086.8 mGycm, Automated exposure control for dose reduction was used. FINDINGS: CTA HEAD: No evidence of acute intracranial hemorrhage, mass effect, or midline shift. The ventricles, sulci, a nd cisterns are unremarkable. Vertebral arteries: The vertebral arteries are patent. Vertebral artery dominance: Right Basilar artery: The basilar artery is intact. The basilar artery bifurcation is normal. Internal Carotid arteries: The cervical, petrous, cavernous and supraclinoid segments are normal. CHELSEA: Patent with no evidence of aneurysm. ACOM: Present without evidence of aneurysm. MCA: Patent with no evidence of aneurysm. LIGHT BULB REPLACER: Patent with no evidence of aneurysm. PCOM: Hypoplastic bilaterally. Dural sinuses: Patent. CTA NECK: Right Carotid System: The common carotid artery and external carotid artery are patent. The carotid bifurcation demonstrate s no evidence of hemodynamically significant stenosis. The remaining portions of the internal carotid artery demonstrate normal size without significant narrowing. Left Carotid System: The common carotid artery and external carotid artery are patent. The carotid bifurcation demonstrate s no evidence of hemodynamically significant stenosis. The remaining portions of the internal carotid artery demonstrate normal size without significant narrowing. Vertebral arteries are patent without evidence hemodynamically significant stenosis. There is a three-vessel aortic arch. The origins of the great vessels are grossly patent. No evidence of hemodynamically significant stenosis. Upper thorax: IMPRESSION: 1. No evidence of dissection of the cervical internal carotid arteries or vertebral arteries. 2. No any evidence of significant stenosis at the carotid bifurcations. 3. No evidence of intracranial high-grade stenosis or intracranial aneurysm. [facility], , 06/01/2024 5:10 PM
[2024-06-01 17:41] VITALS: RESP 17
--- NOTE | 2024-06-01 18:49 | US ---
EXAMINATION TYPE: US venous doppler duplex UE RT DATE OF EXAM: 06/01/2024 COMPARISON: NONE CLINICAL INDICATION: Male, 78 years old with history of RUE pain/paresthesia with elevated D-dimer; R UE pain elevated dimer TECHNIQUE: Grayscale, color Doppler and spectral Doppler imaging of the upper extremity. SIDE PERFORMED: Right FINDINGS: Right Arm: Negative for DVT Grayscale, color doppler, spectral doppler imaging performed of the deep veins of the upper extremiti es. Low-level internal echoes within the right axillary vein could reflect artifact. IMPRESSION: No convincing sonographic evidence of DVT in the right upper extremity. [facility], , 06/01/2024 6:46 PM
[2024-06-01] MEDS ORDERED: NALOXONE 0.4 MG/ML 1 ML VIAL IV PRN (19:31)
[2024-06-01] MEDS ORDERED: ONDANSETRON 4 MG/2 ML VIAL IVP PRN (19:31)
[2024-06-01] MEDS ORDERED: DOCUSATE 100 MG CAP PO PRN (19:35)
[2024-06-01] MEDS ORDERED: LACTULOSE 20 GM/30 ML CUP PO PRN (19:35)
[2024-06-01] MEDS ORDERED: METOPROLOL TARTRATE 25 MG TAB PO SCH (21:00)
[2024-06-01] MEDS ORDERED: ATORVASTATIN 80 MG TAB PO SCH (21:00)
[2024-06-01] MEDS ORDERED: APIXABAN 5 MG TAB PO SCH (21:00)
[2024-06-01 21:11] VITALS: BP 126/83; PULSE 67; TEMP 98.3
[2024-06-02] MEDS ORDERED: PANTOPRAZOLE 40 MG TABLET PO SCH (07:30)
[2024-06-02] MEDS ORDERED: ASPIRIN 81 MG PO SCH (09:00)
[2024-06-02] MEDS ORDERED: Linaclotide [Linzess] 290 MCG Capsule PO SCH (09:00)
[2024-06-02] MEDS ORDERED: FUROSEMIDE 20 MG TAB PO SCH (09:00)
[2024-06-02] MEDS ORDERED: DONEPEZIL 5 MG TAB PO SCH (09:00)
[2024-06-08] MEDS ORDERED: NON FORMULARY DRUG (Alendronate Sodium [Fosamax] 70 MG Tablet) PO SCH (09:00)
== END 2024-06-01 21:06 | disposition home or self-care (01) ==
LOC: EC 12:55 → 6NMEDSUR 19:36
PROVIDERS: ADMIT Internal Medicine; ATTEND Internal Medicine
DX: R79.89 Other specified abnormal findings of blood chemistry (principal); R07.9 Chest pain, unspecified; R53.1 Weakness; Z79.83 Long term (current) use of bisphosphonates; Z79.01 Long term (current) use of anticoagulants; Z79.82 Long term (current) use of aspirin; Z79.899 Other long term (current) drug therapy
CPT/HCPCS: 99285; 36415; 93005; 85379; 83880; 80053; 83605; 83735; 84100; 84484; 85025; 85610; 85730; 71110; 73070; 71046; 93971; 70496; 70450; 70498; 71275; Q9967

== ENCOUNTER → 2024-06-27 | Outpatient (CLI) | payer MEDICARE, OTHER ==
[2024-06-27 12:34] VITALS: BP 110/65; PULSE 55; RESP 16
--- NOTE | 2024-06-27 12:53 | P.PN ---
Subjective 78-year-old pleasant gentleman. His last injection was transforaminal LUCRECIA L4-5 left side. Was done on 12/18/2023. Patient relates he got significant pain relief. And back pain is still good. His main problem now is pain in the trochanteric area bilaterally. Describes the pain as pressure in character. Constant in nature. Intensity goes up to 7/10. Aggravating factor walking standing position change relieving factor none. No new neurological symptoms. No new bowel or bladder dysfunction. Objective - Vital Signs Vital signs: Vital Signs Temp Pulse 55 L 06/27/24 12:29 Resp 16 06/27/24 12:29 BP 110/65 06/27/24 12:29 Pulse Ox 98 06/27/24 12:29 FiO2 Intake & Output 06/26/24 06/27/24 06/27/24 18:59 06:59 18:59 Weight 86.183 kg - Exam Tenderness on palpation over greater trochanteric bursa bilaterally. Assessment and Plan Plan: Assessment. Bilateral greater trochanteric bursitis. Lumbar radiculopathy. Plan. Will schedule for bilateral greater trochanteric bursa injection with local anesthetics and steroid. Future, for his radicular pain he may need intralaminar epidural steroid injection at L5-S1 level. Discussed the procedure and possible complications, which may include infection, bleeding, nerve damage, aggravation of pain, all of which could be permanent. Patient understands and all questions were answered.
== END ==
LOC: PNWHC3 10:43
PROVIDERS: ATTEND Pain Medicine Interventional Pain Medicine
DX: M54.16 Radiculopathy, lumbar region (principal); M70.61 Trochanteric bursitis, right hip; M70.62 Trochanteric bursitis, left hip; Z87.891 Personal history of nicotine dependence
CPT/HCPCS: 99211

== ENCOUNTER → 2024-07-25 | Outpatient (CLI) | payer MEDICARE, OTHER ==
[2024-07-25 09:18] VITALS: BP 101/65; PULSE 52; RESP 19
--- NOTE | 2024-07-25 14:55 | P.PAINPG ---
PQRS Measure Charge Sheet Comment: HISTORY OF PRESENT ILLNESS: A 78 yr old male presents today w severe and chronic LBP > 1 yr secondary to L3 Kyphoplasty in October 2023 for evaluation s/p BL Greater Trochanteric Bursa #1. Pt states he experienced 80 % pain relief s/p procedure. Pt states his pain level is provoked at 5 /10 in intensity, predominantly axial, intermittent, localized in the lumbar spine, dull in character w occasional radiation towards BLEs. Pain has unknown provocative factors. Pain is palliated w PT x 4 wks which ended in Dec 2023, physician guided stretches daily since Dec 2023, use of a walker, medications, heat & ice at PT, laying supine, repositioning and rest. He also receives BL knee injections from Dr Reyes within the past year. Interventional procedures include LESI (Dec 2023), BL Greater Trochanteric Bursa x1 (Jul 2024) Medications include Talmo 5/325mg, ASA REVIEW OF ORGAN SYSTEMS: CONSTITUTIONAL: No fevers or chills. No recent weight loss. NEUROLOGICAL: + numbness and tingling along the distal extremities. No seizure disorders or headaches. MUSCULOSKELETAL: + pain PSYCHIATRIC: Denies current depression or suicidal thoughts. Physical Examinations : Constitutional : Cooperative , not in acute distress . Neurologic : Cranial nerve II to XII intact. No focal neurological deficits. Psychiatric : alert & oriented x 3. Matching mood & appropriate affect. Judgment & insight intact. Musculoskeletal : Cervical Spine Motor strength in the deltoid and biceps: Normal right side. Normal Left side Motor strength biceps and the wrist extensors: Normal right side . Normal left side Motor strength in the triceps muscle: Normal right side. Normal left side Deep tendon reflexes: Normal at the biceps. Normal at Brachioradialis. Normal at triceps Vertebral body tenderness to deep palpation over Cervical facet loading test: positive bilaterally Spurling test: positive bilaterally Neck distraction test: positive bilaterally Avelino sign: positive bilaterally Lumbar spine Motor strength lower extremities ,thigh and legs 5/5 Right side , 5/5 Left side Deep tendon reflexes : Normal Knee Jerk. Normal Ankle Jerk Vertebral body tenderness over L3 Devine test positive BL L2-L3 Lumbar facet Loading Test: positive Right / positive Left Range of motion of the lumbar spine Flexion 30 degrees, extension 10 degrees Straight Leg Raise test: Left/ Right positive at degree Chris test: positive right / positive left. Severe tenderness over the Sacroiliac joint on the Right / Left sides Gaenslen test: positive bilaterally Seated flexion test: positive bilaterally. Sacral spine : Severe tenderness over the Sacroiliac joint: right side / left side Range of motion: Flexion of the lumbar spine <60 degrees Range of motion: Extension of the lumbar spine <20 degrees Gaenslen's Test positive Alberto's Test positive Chris test: positive right side / left side Thigh Thrust Test Sacral Thrust Test Imaging: MRI without contrast of the lumbar spine from 01/23/20 reviewed Assessment/ Plan : Lumbar Stenosis, Post L3 Kyphoplasty, BL Hip DJD Will manage residual pain and may RTC on an as needed basis. Pt states he is not available for a follow up until after 01/20/25. All questions answered. I have spent greater than 30 minutes on patient care today. Dr Montiel was available by phone for the evaluation of this patient. The time was used to review the medical records including relevant urine studies and Prescription history (MAPs), review of the available imaging, evaluation and examination of the patient, coordination of care with the medical staff and if applicable referring physicians, as well as creation of the medical record PQRS Narrative: Smoking Status Former smoker Hx Alcohol Use (MH) No Home Medications: Ambulatory Orders Atorvastatin [Lipitor] 80 mg PO HS #90 tab 03/28/22 Linaclotide [Linzess] 290 mcg PO DAILY 04/22/22 Apixaban [Eliquis] 5 mg PO BID tab 04/28/22 Furosemide [Lasix] 20 mg PO DAILY PRN 10/27/23 Alendronate Sodium [Fosamax] 70 mg PO WEEKLY 12/28/23 Pantoprazole Sodium [Protonix] 40 mg PO BID PRN 12/28/23 Aspirin 81 mg PO DAILY 30 Days #30 tab 01/04/24 Donepezil [Aricept] 5 mg PO DAILY 06/01/24 Ipratropium Mellott 0.06%Nasal [Atrovent Nasal 0.06%] 2 spr EA NOSTRIL BID PRN 06/01/24 Lactulose 10 gm PO DIRECTED PRN 06/01/24 Nitroglycerin Sl Tabs [Nitrostat] 0.4 mg SL Q5M PRN 06/01/24 Metoprolol Tartrate [Lopressor] 50 mg PO BID 02/05/25 Controlled Substance Measures - Controlled Substance Measures Is patient prescribed a controlled substance at discharge?: No
== END ==
LOC: PNWHC3 09:00
PROVIDERS: ATTEND Specialist
DX: M48.061 Spinal stenosis, lumbar region without neurogenic claudication (principal); M16.0 Bilateral primary osteoarthritis of hip; Z98.1 Arthrodesis status; Z87.891 Personal history of nicotine dependence
CPT/HCPCS: 99211